=== PATIENT | female | born 1930 | race Caucasian/White ===

== ENCOUNTER 2016-10-10 19:29 | Emergency (ER) | payer OTHER, MEDICAID ==
[2016-10-10] MEDS ORDERED: DUONEB 0.5 MG/3 MG NEB ONE (19:40)
--- NOTE | 2016-10-10 19:41 | DR.GENAD ---
HPI - PCP Primary Care Physician: [id number] - Complaint/Symptoms Chief Complaint Doctors Comments: Patient sent from jail with loud gurgling respirations. Sats 88% on 2 L nasal cannula. Patient given duoneb, suctioned and ventimask. - Nurses notes reviewed Nurses Notes Review: Yes - Source History Provided: Prison - Mode of Arrival Mode of Arrival: Stretcher - Timing Came on: Suddenly - Duration Duration: Constant Duration: Hours - Location Location: [facility] - Severity Severity: Moderate - Modifying Factors Improves:: oxygen - Other History Other History: DNR PMH - PMH Past Medical History: COPD, GERD, Hypertension Past Surgical History: Yes Surgical History: Unknown - Social History Do you use any recreational Drugs:: No ROS - Review of Systems Constitutional: No Symptoms Reported Eyes: No Symptoms Reported ENTM: No Symptoms Reported Respiratoy: Short of Breath, Wheezing Cardiovascular: No Symptoms Reported Gastrointestinal/Abdominal: No Symptoms Reported Genitourinary: No Symptoms Reported Neurological: Depressed Musculoskeletal: No Symptoms Reported Integumentary: No Symptoms Reported Hematologic/Lymphatic: No Symptoms Reported Endocrine: No Symptoms Reported Psychiatric: No Symptoms Reported All Other Systems: Reviewed and Negative PE - Vital Signs Vitals: Pulse Rate 117 Blood Pressure [Left Arm] 118/48 Blood Pressure [Right Arm] 107/62 Blood Pressure 111/71 O2 Sat by Pulse Oximetry 100 - General Limitations: No Limitations General Appearance: Lethargic, In Distress (sounds like respiratory distress) - Head Head Exam: Normal Inspection - Eyes Eye exam: Normal Appearance, EOMI. negative: Scleral Icterus, Conjunctival Injection - ENT ENT Exam: Normal Oropharynx External Ear Exam: Normal External Inspection - Neck Neck Exam: Normal Inspection, Full ROM, Trachea Midline - Chest Chest Inspection: Normal Inspection - Respiratory Respiratory Exam: Accessory Muscle Use, Respiratory Distress. negative: Normal Lung Sounds Bilat Respiratory Exam: Bilateral Wheezing, Bilateral Rhonchi (rhonchi sounds like aspiration) - Abdominal Exam Abdominal Exam: Normal Inspection, Normal Bowel Sounds, Soft - Extremities Extremities Exam: Normal Inspection - Neurologic Neurological Exam: CN II-XII Intact - Psychiatric Psychiatric Exam: Flat Affect - Skin Skin Exam: Intact, Normal Color Course - Treatment Treatment: 2039: loud breath sounds and gurgling resolved. sats 98% on ventimask. Will continue ventimask till jerardo then try nasal canula at 3 liters. ROR - Labs Reviewed Result Diagrams: 10/10/16 19:49 10/10/16 19:49 Laboratory: WBC 6.1 X10^3/uL (3.6-10.0) 10/10/16 19:49 RBC 4.30 X10^6/uL (3.5-5.4) 10/10/16 19:49 Hgb 13.5 g/dL (12.0-16.0) 10/10/16 19:49 Hct 41.2 % (36.0-47.0) 10/10/16 19:49 MCV 95.8 fL (80.0-100.0) 10/10/16 19:49 MCH 31.4 pg (27.0-34.0) 10/10/16 19:49 MCHC 32.8 g/dL (33.0-35.0) L 10/10/16 19:49 RDW 13.8 % (11.6-16.5) 10/10/16 19:49 Plt Count 219 X10^3/uL (150.0-450.0) 10/10/16 19:49 MPV 8.1 fL (7.4-11.0) 10/10/16 19:49 Neut % 49.8 % (42.0-75.0) 10/10/16 19:49 Lymph % 34.7 % (21.0-51.0) 10/10/16 19:49 [place] % 11.1 % (0.0-13.0) 10/10/16 19:49 Eos % 4.1 % (0.9-2.9) H 10/10/16 19:49 Baso % 0.3 % (0.2-1.0) 10/10/16 19:49 Neut # 3.1 x10^3/uL (2.2-4.8) 10/10/16 19:49 Lymph # 2.1 X10^3/uL (1.3-2.9) 10/10/16 19:49 [place] # 0.7 x10^3/uL (0.3-0.8) 10/10/16 19:49 Eos # 0.2 x10^3/uL (0.0-0.2) 10/10/16 19:49 Baso # 0.0 X10^3/uL (0.0-0.1) 10/10/16 19:49 Absolute Nucleated RBC 0.0 /100WBC 10/10/16 19:49 Sodium 145 mmol/L (136-145) 10/10/16 19:49 Corrected Sodium TNP 10/10/16 19:49 Potassium 4.6 mmol/L (3.5-5.1) 10/10/16 19:49 Chloride 108 mmol/L (98-107) H 10/10/16 19:49 Carbon Dioxide 27.2 mmol/L (21-32) 10/10/16 19:49 BUN 21 mg/dL (7-18) H 10/10/16 19:49 Creatinine 0.92 mg/dL (0.55-1.02) 10/10/16 19:49 Est GFR (MDRD) Af Amer > 60 (>60) 10/10/16 19:49 Est GFR (MDRD) Non-Af > 60 (>60) 10/10/16 19:49 Glucose 106 mg/dL (65-99) H 10/10/16 19:49 Calcium 8.7 mg/dL (8.5-10.1) 10/10/16 19:49 Corrected Calcium TNP 10/10/16 19:49 Total Bilirubin 0.20 mg/dL (0.2-1.0) 10/10/16 19:49 AST 16 Units/L (15-37) 10/10/16 19:49 ALT 21 Units/L (12-78) 10/10/16 19:49 Alkaline Phosphatase 64 Units/L (46-116) 10/10/16 19:49 Creatine Kinase 56 Units/L (26-192) 10/10/16 19:49 CK-MB (CK-2) < 1.0 ng/mL (0-4.0) 10/10/16 19:49 CK/CKMB % Calc 1.8 % (<4) 10/10/16 19:49 Troponin I < 0.02 ng/mL (0-1.5) 10/10/16 19:49 Total Protein 7.6 g/dL (6.4-8.2) 10/10/16 19:49 Albumin 3.7 g/dL (3.4-5.0) 10/10/16 19:49 Globulin 3.9 g/dL (2.5-4.5) 10/10/16 19:49 Albumin/Globulin Ratio 0.9 Ratio (1.1-2.1) L 10/10/16 19:49 - XRAY XRAY Interpreted by: Radiologist XRAY Findings: chest: no acute changes - EKG Rate: 117 [place]: Normal Rhythm: ST Block: None Hypertrophy: None ST: Nonsp - Diagnosis Discharge Problem: COPD exacerbation - Discharge Plan Condition: Stable - Follow ups/Referrals Follow ups/Referrals: Marcial Nichols [Primary Care Provider] - 3 days - Instructions
[2016-10-10 20:04] LABS: BASOPHILS % (AUTO) 0.3 % (0.2-1.0); EOSINOPHILS # (AUTO) 0.2 x10^3/uL (0.0-0.2); EOSINOPHILS % (AUTO) 4.1 % (0.9-2.9); HEMATOCRIT 41.2 % (36.0-47.0); HEMOGLOBIN 13.5 g/dL (12.0-16.0); LYMPHOCYTES # (AUTO) 2.1 X10^3/uL (1.3-2.9); LYMPHOCYTES % (AUTO) 34.7 % (21.0-51.0); MEAN CORPUSCULAR HEMOGLOBIN 31.4 pg (27.0-34.0); MEAN CORPUSCULAR HGB CONC 32.8 g/dL (33.0-35.0); MEAN CORPUSCULAR VOLUME 95.8 fL (80.0-100.0); MEAN PLATELET VOLUME 8.1 fL (7.4-11.0); MONOCYTES # (AUTO) 0.7 x10^3/uL (0.3-0.8); MONOCYTES % (AUTO) 11.1 % (0.0-13.0); NEUTROPHILS # (AUTO) 3.1 x10^3/uL (2.2-4.8); NEUTROPHILS % (AUTO) 49.8 % (42.0-75.0); PLATELET COUNT 219 X10^3/uL (150.0-450.0); RED CELL DISTRIBUTION WIDTH 13.8 % (11.6-16.5); WHITE BLOOD COUNT 6.1 X10^3/uL (3.6-10.0)
[2016-10-10 20:18] LABS: BLOOD UREA NITROGEN 21 mg/dL (7-18); CALCIUM 8.7 mg/dL (8.5-10.1); CARBON DIOXIDE 27.2 mmol/L (21-32); CHLORIDE 108 mmol/L (98-107); CREATININE 0.92 mg/dL (0.55-1.02); GLUCOSE 106 mg/dL (65-99); SODIUM 145 mmol/L (136-145); TROPONIN I < 0.02 ng/mL (0-1.5); eGFR BLACK RACES > 60 (>60); eGFR NON BLACK RACES > 60 (>60)
[2016-10-10 20:19] VITALS: BMI 26.7
[2016-10-10 20:23] LABS: ALANINE AMINOTRANSFERASE 21 Units/L (12-78); ALBUMIN 3.7 g/dL (3.4-5.0); ALKALINE PHOSPHATASE 64 Units/L (46-116); ASPARTATE AMINO TRANSFERASE 16 Units/L (15-37); CKMB % 1.8 % (<4); CREATINE KINASE 56 Units/L (26-192); CREATINE KINASE MB < 1.0 ng/mL (0-4.0); TOTAL PROTEIN 7.6 g/dL (6.4-8.2)
--- NOTE | 2016-10-10 20:23 | RAD ---
HISTORY: 85-year-old female with shortness of breath Study: Single frontal view of the chest. Comparison: Chest radiograph September 15, 2016. Findings: The trachea is midline. The cardiac silhouette is stably enlarged. Chronic prominent perihilar sonia g markings with prominent interstitium without focal consolidation, large effusion or pneumothorax. Low lung volumes with bibasilar atelectasis. 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 The bony thorax is unremarkable. IMPRESSION: 1. Stable cardiomegaly and chronic changes without acute cardiopulmonary process. Reported By:
[2016-10-10 21:03] VITALS: BP 153/78
== END 2016-10-10 21:03 | disposition home or self-care (01) ==
LOC: ER 19:36
DX: J44.1 Chronic obstructive pulmonary disease with (acute) exacerbation (principal); I51.7 Cardiomegaly
CPT/HCPCS: 36415; 71010; 80053; 82550; 82553; 84484; 85025; 93005; 94640; 96365; 99283; A4216; A4222

== ENCOUNTER → 2017-02-28 | Outpatient (CLI) | payer OTHER, MEDICAID ==
--- NOTE | 2017-02-28 13:27 | RAD ---
HISTORY: Cough Study: Single-view chest Comparison: October 10, 2016 Findings: The trachea is midline. Heart size is upper normal with aortic uncoiling. Stable increased interstiti al markings are present bilaterally, likely representing COPD and interstitial fibrotic change. No co nsolidation, CHF or pneumothorax is seen. There is evidence of rotator cuff tendon insufficiency on t he right side. No acute osseous abnormalities are seen. IMPRESSION: Changes likely representing COPD and interstitial fibrotic disease. An acute process is not identifie d. Reported By:
== END ==
LOC: RAD 11:45
PROVIDERS: ATTEND Internal Medicine
DX: R05 Cough (principal)
CPT/HCPCS: 71010

== ENCOUNTER 2017-03-02 16:48 | Inpatient (IN) | payer OTHER, MEDICAID ==
[2017-03-02] MEDS ORDERED: TUSSIONEX PENNKINETIC SUSP PO PRN (19:31)
[2017-03-02] MEDS ORDERED: NS 1000 ML 1,000 ML ONE (19:37)
[2017-03-02 20:13] LABS: BASOPHILS # (AUTO) 0.1 X10^3/uL (0.0-0.1); BASOPHILS % (AUTO) 0.9 % (0.2-1.0); EOSINOPHILS # (AUTO) 0.5 x10^3/uL (0.0-0.2); EOSINOPHILS % (AUTO) 5.7 % (0.9-2.9); HEMATOCRIT 37.4 % (36.0-47.0); HEMOGLOBIN 12.6 g/dL (12.0-16.0); LYMPHOCYTES # (AUTO) 1.3 X10^3/uL (1.3-2.9); LYMPHOCYTES % (AUTO) 15.2 % (21.0-51.0); MEAN CORPUSCULAR HEMOGLOBIN 32.2 pg (27.0-34.0); MEAN CORPUSCULAR HGB CONC 33.6 g/dL (33.0-35.0); MEAN CORPUSCULAR VOLUME 95.9 fL (80.0-100.0); MEAN PLATELET VOLUME 7.7 fL (7.4-11.0); MONOCYTES # (AUTO) 1.1 x10^3/uL (0.3-0.8); MONOCYTES % (AUTO) 12.2 % (0.0-13.0); NEUTROPHILS # (AUTO) 5.9 x10^3/uL (2.2-4.8); PLATELET COUNT 269 X10^3/uL (150.0-450.0); RED CELL DISTRIBUTION WIDTH 13.6 % (11.6-16.5); WHITE BLOOD COUNT 8.9 X10^3/uL (3.6-10.0)
[2017-03-02 20:29] LABS: ALANINE AMINOTRANSFERASE 43 Units/L (12-78); ALBUMIN 2.9 g/dL (3.4-5.0); ALKALINE PHOSPHATASE 83 Units/L (46-116); ASPARTATE AMINO TRANSFERASE 33 Units/L (15-37); BLOOD UREA NITROGEN 22 mg/dL (7-18); CALCIUM 9.1 mg/dL (8.5-10.1); CARBON DIOXIDE 26.9 mmol/L (21-32); CHLORIDE 107 mmol/L (98-107); CREATININE 0.85 mg/dL (0.55-1.02); SODIUM 141 mmol/L (136-145); TOTAL PROTEIN 7.8 g/dL (6.4-8.2); eGFR BLACK RACES > 60 (>60); eGFR NON BLACK RACES > 60 (>60)
[2017-03-02] MEDS ORDERED: SALINE 0.9% 3 ML NEB TX ONE (21:19)
[2017-03-02] MEDS: PULMICORT NEB TX 0.5 MG NEB SCH (21:22)
[2017-03-02] MEDS: DUONEB 0.5 MG/3 MG NEB SCH (21:22)
--- NOTE | 2017-03-02 22:02 | RAD ---
Portable chest Indication: Cough and congestion Comparison: February 28, 2017. Impression: There is stable cardiomegaly. Extensive chronic interstitial changes are again noted throughout both lungs without new opacity to suggest pneumonia. No pleural effusion or pneumothorax is seen. No new a bnormality. Reported By:
[2017-03-02] MEDS: FORTAZ or TAZICEF INJ 1 GM in NS 50 ML IV + SPIKE MINIBAG* 50 ML IV SCH ×3 (22:24→22:26)
[2017-03-02] MEDS: LEVAQUIN PREMIX IV 500 MG 500 MG/100 ML BAG IV SCH (22:24)
[2017-03-02] MEDS: SOLU-Medrol 40 MG VIAL IVP SCH ×2 (22:24→22:25)
[2017-03-02] MEDS: ROBITUSSIN DM PO SCH (22:25)
[2017-03-02] MEDS: NS 1/2 1000 ML IV 1,000 ML IV SCH (22:26)
[2017-03-03] MEDS: DUONEB 0.5 MG/3 MG NEB SCH ×6 (01:44→21:30)
[2017-03-03 03:03] VITALS: BMI 24.2
[2017-03-03] MEDS: FORTAZ or TAZICEF INJ 1 GM in NS 50 ML IV + SPIKE MINIBAG* 50 ML IV SCH ×3 (05:27→21:40)
[2017-03-03] MEDS: SOLU-Medrol 40 MG VIAL IVP SCH ×3 (05:27→21:44)
[2017-03-03 06:57] LABS: ALANINE AMINOTRANSFERASE 41 Units/L (12-78); ALBUMIN 2.8 g/dL (3.4-5.0); ALKALINE PHOSPHATASE 84 Units/L (46-116); ASPARTATE AMINO TRANSFERASE 29 Units/L (15-37); BLOOD UREA NITROGEN 21 mg/dL (7-18); CALCIUM 8.8 mg/dL (8.5-10.1); CARBON DIOXIDE 24.8 mmol/L (21-32); CHLORIDE 108 mmol/L (98-107); COR CA(FOR HYPOALB) 9.8 mg/dL (8.5-10.1); COR NA(FOR HYPERGLY) 143 mmol/L (136-145); CREATININE 0.86 mg/dL (0.55-1.02); SODIUM 142 mmol/L (136-145); TOTAL PROTEIN 7.6 g/dL (6.4-8.2); eGFR BLACK RACES > 60 (>60); eGFR NON BLACK RACES > 60 (>60)
[2017-03-03 07:11] LABS: BASOPHILS % (AUTO) 0.4 % (0.2-1.0); EOSINOPHILS % (AUTO) 0.2 % (0.9-2.9); HEMATOCRIT 36.8 % (36.0-47.0); HEMOGLOBIN 12.3 g/dL (12.0-16.0); LYMPHOCYTES # (AUTO) 0.4 X10^3/uL (1.3-2.9); LYMPHOCYTES % (AUTO) 5.2 % (21.0-51.0); MEAN CORPUSCULAR HEMOGLOBIN 32.3 pg (27.0-34.0); MEAN CORPUSCULAR HGB CONC 33.4 g/dL (33.0-35.0); MEAN CORPUSCULAR VOLUME 96.7 fL (80.0-100.0); MEAN PLATELET VOLUME 8.4 fL (7.4-11.0); MONOCYTES # (AUTO) 0.2 x10^3/uL (0.3-0.8); MONOCYTES % (AUTO) 2.7 % (0.0-13.0); NEUTROPHILS # (AUTO) 7.7 x10^3/uL (2.2-4.8); NEUTROPHILS % (AUTO) 91.5 % (42.0-75.0); PLATELET COUNT 252 X10^3/uL (150.0-450.0); RED CELL DISTRIBUTION WIDTH 13.5 % (11.6-16.5); WHITE BLOOD COUNT 8.4 X10^3/uL (3.6-10.0)
--- NOTE | 2017-03-03 07:26 | RAD ---
HISTORY: Shortness of breath Study: Chest AP portable Comparison: March 02, 2017 9:36 p.m. Findings: The patient is rotated slightly to the left. The heart is enlarged. No congestive heart failure is no jeanna. Interstitial lung changes are present bilaterally more prominent on the right than the left. The re is increased density in the retrocardiac area of the left lower lobe silhouetting out the left hem idiaphragm. This could be due to infiltrate, atelectasis, effusion or a combination. It is not change d when compared with the prior examination. IMPRESSION: Increased density retrocardiac area left lower lobe. Differential diagnosis as above Mild cardiomegaly without congestive heart failure Interstitial lung changes, stable Reported By:
[2017-03-03 08:00] LABS: BAND NEUTROPHILS % 15 % (0-10); PLATELET MORPHOLOGY COMMENT NORMAL (NORMAL)
[2017-03-03] MEDS: PULMICORT NEB TX 0.5 MG NEB SCH ×2 (08:50→21:30)
--- NOTE | 2017-03-03 09:24 | DR.H&P ---
H&P - History & Physical for Day of: H&P Date: 03/02/17 - Chief Complaint Chief Complaint: COUGH, SHORT OF BREATH - Allergies Allergies/Adverse Reactions: Allergies Allergy/AdvReac Type Severity Reaction Status Date / Time Penicillins Allergy Verified 03/02/17 20:54 Sulfa (Sulfonamide Allergy Verified 03/02/17 20:54 Antibiotics) [SULFA] - History of Present Illness History of Present Illness: IS A 86 YEAR OLD PATIENT OF OURS WHO WAS A DIRECT ADMISSION FROM [facility] / [facility]. UPON MAKING ROUNDS TODAY AT [facility], PATIENT WAS NOTED WITH PRODUCTIVE COUGH AND SHORTNESS OF BREATH. THICK, YELLOW SPUTUM NOTED AT BEDSIDE. LONG-TERM STAFF REPORTED THAT PATIENT'S SYMPTOMS STARTED SEVERAL DAYS AGO. STAFF REPORTED THAT PATIENT'S SYMPTOMS HAD BEEN PROGRESSIVELY GETTING WORSE DESPITE RECEIVING BREATHING TREATMENTS AND TUSSIONEX AT THE LONG-TERM. ON EXAMINATION, LUNGS WERE NOTED WITH SCATTERED WHEEZING AND RHONCHI BILATERALLY. ABDOMEN WAS SOFT, ROUND, AND NON-TENDER WITH NORMAL BOWEL SOUNDS NOTED IN ALL QUADRANTS. WE ADMITTED PATIENT FOR FURTHER TREATMENT AND EVALUATION. WE PLANNED TO OBTAIN A CBC, CMP, BLOOD CULTURES, SPUTUM CULTURE, AND CHEST XRAY ON ADMISSION. PATIENT WILL BE STARTED ON 1/2 NS AT 75ML,HR, FORTAZ 1GM IVQ8H, LEVAQUIN 500MG DAILY, SOLU-MEDROL 40MG IV Q8H, ROBITUSSIN 10ML QID, AND TUSSIONEX 5ML Q12H PRN. ON ADMISSION, VITAL SIGNS WERE 97.4-94-24-93%-153/78. LABS AND CHEST XRAY WERE OBTAINED. ABNORMAL LAB VALUES INCLUDE THE FOLLOWING: BUN 22, ALBUMIN 2.9. CHEST XRAY REPORTED STABLE CRDIOMEGALY. EXTENSIVE CHRONIC INTERSTITIAL CHANGES NOTED THROUGHOUT BOTH LUNGS WITHOUT NEW OPACITY TO SUGGEST PNEUONIA. NO PLEURAL EFFUSION OR PNEUMOTHORAX IS SEEN. NO NEW ABNORMALITY. WE PLAN TO FOLLOW UP WITH AM LABS AND CONTINUE TO MONITOR PATIENT. - Past Medical History Past Medical History: Arthritis, COPD, Dementia, GERD, Hypertension Additional Medical History: MARFANS SYNDROME, ESOPHAGEAL DISORDERS, DYSPHAGIA, BRONCHITIS, PNEUMONIA, UTI'S, MUSCLE WEAKNESS, OSTEOPOROSIS, BACK PAIN - Past Surgical History Surgical History: Unknown - Social History Does patient currently use any type of tobacco product: No Have you used tobacco products in the last 12 months: No Type of Tobacco Use: None Alcohol Use: None Drug Use: None - Medications Home Medications: Dextromethorphan HBr [Tussin Cough] 10 ml PO QID 03/03/17 [History Confirmed ] Docusate Sodium [Colace] 100 mg PO DAILY 03/03/17 [History Confirmed 03/03/17] Famotidine [Famotidine] 20 mg PO BID 03/03/17 [History Confirmed 03/03/17] Fluticasone/Salmeterol [Advair Hfa 115/21 mcg 120-dose] 2 puff PO BID 03/03/17 [ History Confirmed 03/03/17] Furosemide [Furosemide] 20 mg PO DAILY 03/03/17 [History Confirmed 03/03/17] Guaifenesin [Mucinex] 1 tab PO BID 03/03/17 [History Confirmed 03/03/17] Ipratropium/Albuterol Nebule [DUONEB 0.5 MG/3 MG NEBULE *] 1 applic NEB Q4H PRN 03/03/17 [History Confirmed 03/03/17] Magnesium Hydroxide [Milk of Magnesia] 30 ml PO DAILY 03/03/17 [History Confirmed 03/03/17] - Review of Systems Constitutional: See HPI, Fever, Weakness Eyes: No Symptoms Reported ENT: No Symptoms Reported Respiratory: See HPI, Cough, Shortness of Breath, Sputum, Wheezing Cardiovascular: No Symptoms Reported Gastrointestinal: No Symptoms Reported Genitourinary: No Symptoms Reported Musculoskeletal: No Symptoms Reported Skin: No Symptoms Reported Neurological: Weakness - Physical Exam Vital Signs: Temperature 97.9 F Pulse Rate [Bilateral Radial] 92 Pulse Rate 67 Respiratory Rate 18 Blood Pressure [Left Arm] 114/77 Blood Pressure [Right Arm] 107/62 Blood Pressure 153/78 O2 Sat by Pulse Oximetry 94 Oriented: Unable to test Eyes: Normal Ear: Normal Nose: Normal Throat: Normal Respiratory: Rhonchi Throughout, Wheezes Throughout Cardiovascular: Normal : Normal Auscultation: Bowel Sounds: Normal Palpation: Normal Tenderness: Normal Skin: Normal Musculoskeletal: Instability Psychiatric: Normal Mood Description: Calm Affect: Normal Speech Pattern: Clear, Unclear - Assessment/Plan (1) Acute bronchitis Qualifiers: Bronchitis organism: unspecified organism Qualified Code(s): J20.9 - Acute bronchitis, unspecified Status: Acute Plan: DUONEB Q4H, PULMICORT NEX [place] BID, FORTAZ 1GM IV Q8H, LEVAQUIN 500MG DAILY , SUPPLEMENTAL OXYGEN, ROBITUSSIN QID, TUSSIONEX 5ML Q12H PRN, CONTINUE TO MONITOR LABS AND CHEST XRAY (2) COPD exacerbation Status: Acute Plan: DUONEB Q4H, PULMICORT NEX [place] BID, SOLU-MEDROL 40MG IV Q8H, SUPPLEMENTAL OXYGEN, CONTINUE TO MONITOR LABS AND CHEST XRAY
[2017-03-03] MEDS: LEVAQUIN PREMIX IV 500 MG 500 MG/100 ML BAG IV SCH (09:43)
[2017-03-03] MEDS: ROBITUSSIN DM PO SCH ×4 (09:44→21:46)
[2017-03-03] MEDS ORDERED: NS 1/2 1000 ML IV 1,000 ML IV ONE (13:22)
[2017-03-03] MEDS: NS 1/2 1000 ML IV 1,000 ML IV SCH (13:25)
[2017-03-03] MEDS ORDERED: BUTT CREAM (COMPOUND) TOP PRN (18:10)
[2017-03-03] MEDS: MILK OF MAGNESIA PO SCH (18:56)
[2017-03-03] MEDS: PEPCID TAB 20 MG PO SCH ×2 (18:57→21:45)
[2017-03-03] MEDS: LASIX PO SCH (18:57)
[2017-03-03] MEDS: COLACE CAP 100 MG PO SCH (18:57)
[2017-03-03] MEDS ORDERED: [UNRECOGNIZED DRUG - OTHER] PO SCH (21:00)
[2017-03-03] MEDS ORDERED: SALMETEROL PO SCH (21:00)
[2017-03-03] MEDS ORDERED: FLUTICASONE PO SCH (21:00)
[2017-03-03] MEDS: SINGULAIR TAB 10 MG PO SCH (21:45)
[2017-03-04] MEDS: NS 1/2 1000 ML IV 1,000 ML IV SCH ×3 (01:17→17:56)
[2017-03-04 01:30] LABS: BILIRUBIN,URINE NEGATIVE (NEGATIVE); BLOOD/HEMOGLOBIN,URINE NEGATIVE (NEGATIVE); GLUCOSE, URINE NEGATIVE (NEGATIVE); KETONES,URINE 1+ (NEGATIVE); LEUKOCYTE ESTERASE ,URINE 1+ (NEGATIVE); NITRITES,URINE POSITIVE (NEGATIVE); PROTEIN,URINE 2+ (NEGATIVE); UROBILINOGEN,URINE NORMAL (NORMAL)
[2017-03-04 01:36] LABS: APPEARANCE,URINE SLIGHTLY HAZY (CLEAR); BACTERIA,URINE 2+ /HPF (NEGATIVE); COLOR,URINE YELLOW (YELLOW); RBC,URINE NONE SEEN /HPF (NEGATIVE); SQUAMOUS EPITHELIAL CELL,UR RARE /HPF (NEGATIVE)
[2017-03-04] MEDS: DUONEB 0.5 MG/3 MG NEB SCH ×6 (01:46→20:40)
[2017-03-04] MEDS ORDERED: NS 1/2 1000 ML IV 1,000 ML IV ONE ×2 (02:57→17:49)
[2017-03-04] MEDS: SOLU-Medrol 40 MG VIAL IVP SCH ×3 (05:26→22:24)
[2017-03-04] MEDS: FORTAZ or TAZICEF INJ 1 GM in NS 50 ML IV + SPIKE MINIBAG* 50 ML IV SCH ×3 (05:26→22:23)
[2017-03-04 05:33] LABS: BASOPHILS % (AUTO) 0.2 % (0.2-1.0); HEMATOCRIT 32.5 % (36.0-47.0); HEMOGLOBIN 10.9 g/dL (12.0-16.0); LYMPHOCYTES # (AUTO) 0.9 X10^3/uL (1.3-2.9); LYMPHOCYTES % (AUTO) 11.2 % (21.0-51.0); MEAN CORPUSCULAR HEMOGLOBIN 32.1 pg (27.0-34.0); MEAN CORPUSCULAR HGB CONC 33.7 g/dL (33.0-35.0); MEAN CORPUSCULAR VOLUME 95.2 fL (80.0-100.0); MEAN PLATELET VOLUME 8.2 fL (7.4-11.0); MONOCYTES # (AUTO) 0.5 x10^3/uL (0.3-0.8); MONOCYTES % (AUTO) 6.4 % (0.0-13.0); NEUTROPHILS # (AUTO) 6.3 x10^3/uL (2.2-4.8); NEUTROPHILS % (AUTO) 82.2 % (42.0-75.0); PLATELET COUNT 263 X10^3/uL (150.0-450.0); RED BLOOD COUNT 3.41 X10^6/uL (3.5-5.4); RED CELL DISTRIBUTION WIDTH 13.7 % (11.6-16.5); WHITE BLOOD COUNT 7.6 X10^3/uL (3.6-10.0)
[2017-03-04 06:37] LABS: BLOOD UREA NITROGEN 19 mg/dL (7-18); CALCIUM 8.8 mg/dL (8.5-10.1); CARBON DIOXIDE 23.7 mmol/L (21-32); CHLORIDE 105 mmol/L (98-107); COR NA(FOR HYPERGLY) 140 mmol/L (136-145); CREATININE 0.85 mg/dL (0.55-1.02); eGFR BLACK RACES > 60 (>60); eGFR NON BLACK RACES > 60 (>60)
[2017-03-04 06:53] LABS: SODIUM 139 mmol/L (136-145)
[2017-03-04] MEDS: PULMICORT NEB TX 0.5 MG NEB SCH ×2 (08:26→20:40)
--- NOTE | 2017-03-04 09:18 | PCM.PROG ---
Progress Note - Progress Note for Day of Date: 03/04/17 - Subjective Subjective: WAS ADMITTED FOR COUGH AND SHORTNESS OF BREATH. SHE WAS STARTED ON THE PNEUMONIA PROTOCOL. TODAY, SHE IS LYING IN BED WITH EYES OPEN ON MORNING ROUNDS. PATIENT IS CURRENTLY MOANING. PATIENT'S DAUGHTER IN LAW IS AT BEDSIDE. PATIENT CONTINUES WITH COUGH AND APPEARS TO BE SHORT OF BREATH. SHE IS NOTED WEARING NASAL CANNULA AND IS CURRENTLY RECEIVING A BREATHING TREATMENT. ON EXAMINATION, LUNGS ARE NOTED WITH WHEEZING AND RHONCHI BILATERALLY. ABDOMEN IS SOFT, ROUND, AND NON-TENDER. NORMAL BOWEL SOUNDS ARE NOTED IN ALL QUADRANTS. VITAL SIGNS THIS MORNING ARE 96.5-90-22-90%-115/86. A CBC, CMP, AND CHEST XRAY WERE OBTAINED. ABNORMAL LAB VALUES INCLUDE THE FOLLOWING: CHLORIDE 108, BUN 21, GLUCOSE 136. CHEST XRAY REPORTED INCREASED DENSITY RETROCARDIAC ARE LEFT LOWER LOBE. MILD CARDIOMEGALY WITHOUT CHF, INTERSTITIAL LUNG CHANGES STABLE. WE WILL CONTINUE WITH CURRENT PLAN OF CARE TODAY. WE PLAN TO FOLLOW UP WITH AM LABS AND CONTINUE TO MONITOR. - Past Medical Family Social History Past Med/Fam/Surg Hx: No changes since H&P Allergies: Allergies Penicillins Allergy (Verified 03/02/17 20:54) Sulfa (Sulfonamide Antibiotics) [SULFA] Allergy (Verified 03/02/17 20:54) - Review of Systems ROS: No change since H&P - Vital Signs and I&O's Vital Signs: Temperature 97.6 F Pulse Rate [Bilateral Radial] 89 Pulse Rate 84 Respiratory Rate 24 Blood Pressure [Left Arm] 129/58 Blood Pressure [Right Arm] 168/67 Blood Pressure 153/78 O2 Sat by Pulse Oximetry 95 Intake and Output: Intake & Output 03/01/17 03/02/17 03/03/17 03/04/17 11:59 11:59 11:59 11:59 Intake Total 1040 2174 Output Total 430 Balance 1040 1744 - Physical Exam Oriented: Unable to test Eyes: Normal Ear: Normal Nose: Normal Throat: Normal Respiratory: Generalized, Wheezes, Rhonchi Cardiovascular: Normal : Normal Auscultation: Bowel Sounds: Normal Palpation: Normal Tenderness: Normal Skin: Normal Musculoskeletal: Instability Psychiatric: Normal Mood Description: Calm Affect: Normal Speech Pattern: Clear, Unclear - Laboratory and Diagnostics Result Diagrams: 03/04/17 04:25 03/04/17 04:25 Labs: 03/02/17 21:26 Sputum - Expectorated Sputum Sputum Culture - Preliminary 03/02/17 21:26 Sputum - Expectorated Sputum - Final Laboratory WBC 7.6 X10^3/uL (3.6-10.0) 03/04/17 04:25 RBC 3.41 X10^6/uL (3.5-5.4) L 03/04/17 04:25 Hgb 10.9 g/dL (12.0-16.0) L 03/04/17 04:25 Hct 32.5 % (36.0-47.0) L 03/04/17 04:25 MCV 95.2 fL (80.0-100.0) 03/04/17 04:25 MCH 32.1 pg (27.0-34.0) 03/04/17 04:25 MCHC 33.7 g/dL (33.0-35.0) 03/04/17 04:25 RDW 13.7 % (11.6-16.5) 03/04/17 04:25 Plt Count 263 X10^3/uL (150.0-450.0) 03/04/17 04:25 Plt Count Comment Adequate (ADEQUATE) 03/03/17 04:10 MPV 8.2 fL (7.4-11.0) 03/04/17 04:25 Neut % 82.2 % (42.0-75.0) H 03/04/17 04:25 Lymph % 11.2 % (21.0-51.0) L 03/04/17 04:25 [place] % 6.4 % (0.0-13.0) 03/04/17 04:25 Eos % 0.0 % (0.9-2.9) L 03/04/17 04:25 Baso % 0.2 % (0.2-1.0) 03/04/17 04:25 Neut # 6.3 x10^3/uL (2.2-4.8) H 03/04/17 04:25 Lymph # 0.9 X10^3/uL (1.3-2.9) L 03/04/17 04:25 [place] # 0.5 x10^3/uL (0.3-0.8) 03/04/17 04:25 Eos # 0.0 x10^3/uL (0.0-0.2) 03/04/17 04:25 Baso # 0.0 X10^3/uL (0.0-0.1) 03/04/17 04:25 Absolute Nucleated RBC 0.0 /100WBC 03/04/17 04:25 Total Counted 100 03/03/17 04:10 Neutrophils % (Manual) 77 % (39-76) H 03/03/17 04:10 Band Neutrophils % 15 % (0-10) H 03/03/17 04:10 Lymphocytes % (Manual) 6 % (13-43) L 03/03/17 04:10 Monocytes % (Manual) 2 % (4-9) L 03/03/17 04:10 Plt Morphology Comment Normal (NORMAL) 03/03/17 04:10 RBC Morphology Normal (NORMAL) 03/03/17 04:10 Sodium 139 mmol/L (136-145) 03/04/17 04:25 Corrected Sodium 140 mmol/L (136-145) 03/04/17 04:25 Potassium 3.6 mmol/L (3.5-5.1) 03/04/17 04:25 Chloride 105 mmol/L (98-107) 03/04/17 04:25 Carbon Dioxide 23.7 mmol/L (21-32) 03/04/17 04:25 BUN 19 mg/dL (7-18) H 03/04/17 04:25 Creatinine 0.85 mg/dL (0.55-1.02) 03/04/17 04:25 Est GFR (MDRD) Af Amer > 60 (>60) 03/04/17 04:25 Est GFR (MDRD) Non-Af > 60 (>60) 03/04/17 04:25 Glucose 141 mg/dL (65-99) H 03/04/17 04:25 Calcium 8.8 mg/dL (8.5-10.1) 03/04/17 04:25 Corrected Calcium 9.8 mg/dL (8.5-10.1) 03/03/17 04:10 Total Bilirubin 0.20 mg/dL (0.2-1.0) 03/03/17 04:10 AST 29 Units/L (15-37) 03/03/17 04:10 ALT 41 Units/L (12-78) 03/03/17 04:10 Alkaline Phosphatase 84 Units/L (46-116) 03/03/17 04:10 Total Protein 7.6 g/dL (6.4-8.2) 03/03/17 04:10 Albumin 2.8 g/dL (3.4-5.0) L 03/03/17 04:10 Globulin 4.8 g/dL (2.5-4.5) H 03/03/17 04:10 Albumin/Globulin Ratio 0.6 Ratio (1.1-2.1) L 03/03/17 04:10 Specimen Type Catherized urine 03/04/17 01:00 Urine Color Yellow (YELLOW) 03/04/17 01:00 Urine Appearance Slightly hazy (CLEAR) 03/04/17 01:00 Urine pH 5.0 (5.0 - 8.0) 03/04/17 01:00 Ur Specific [place] 1.020 (1.000-1.030) 03/04/17 01:00 Urine Protein 2+ (NEGATIVE) 03/04/17 01:00 Urine Glucose (UA) Negative (NEGATIVE) 03/04/17 01:00 Urine Ketones 1+ (NEGATIVE) 03/04/17 01:00 Urine Occult Blood Negative (NEGATIVE) 03/04/17 01:00 Urine Nitrite Positive (NEGATIVE) 03/04/17 01:00 Urine Bilirubin Negative (NEGATIVE) 03/04/17 01:00 Urine Urobilinogen Normal (NORMAL) 03/04/17 01:00 Ur Leukocyte Esterase 1+ (NEGATIVE) 03/04/17 01:00 Urine RBC None seen /HPF (NEGATIVE) 03/04/17 01:00 Urine WBC 6-8 /HPF (NEGATIVE) 03/04/17 01:00 Ur Squamous Epith Cells Rare /HPF (NEGATIVE) 03/04/17 01:00 Urine Bacteria 2+ /HPF (NEGATIVE) 03/04/17 01:00 Ur Culture Indicated? Yes/culture set up 03/04/17 01:00 - Plan (1) Acute bronchitis Status: Acute Qualifiers: Bronchitis organism: unspecified organism Qualified Code(s): J20.9 - Acute bronchitis, unspecified Plan: DUONEB Q4H, PULMICORT NEX [place] BID, FORTAZ 1GM IV Q8H, LEVAQUIN 500MG DAILY , SUPPLEMENTAL OXYGEN, ROBITUSSIN QID, TUSSIONEX 5ML Q12H PRN, CONTINUE TO MONITOR LABS AND CHEST XRAY (2) COPD exacerbation Status: Acute Plan: DUONEB Q4H, PULMICORT NEX [place] BID, SOLU-MEDROL 40MG IV Q8H, SUPPLEMENTAL OXYGEN, CONTINUE TO MONITOR LABS AND CHEST XRAY
[2017-03-04] MEDS: LEVAQUIN PREMIX IV 500 MG 500 MG/100 ML BAG IV SCH (09:22)
[2017-03-04] MEDS: LASIX PO SCH (09:23)
[2017-03-04] MEDS: COLACE CAP 100 MG PO SCH (09:23)
[2017-03-04] MEDS: PEPCID TAB 20 MG PO SCH ×2 (09:23→22:20)
[2017-03-04] MEDS: MILK OF MAGNESIA PO SCH (09:23)
[2017-03-04] MEDS: ROBITUSSIN DM PO SCH ×4 (09:23→22:21)
[2017-03-04] MEDS: PROVENTIL NEB TX 0.083% 2.5MG/ 3ML NEB SCH ×3 (12:30→20:40)
[2017-03-04 14:06] LABS: ALANINE AMINOTRANSFERASE 42 Units/L (12-78); ALBUMIN 2.5 g/dL (3.4-5.0); ALKALINE PHOSPHATASE 69 Units/L (46-116); ASPARTATE AMINO TRANSFERASE 41 Units/L (15-37); TOTAL PROTEIN 6.8 g/dL (6.4-8.2)
--- NOTE | 2017-03-04 20:56 | PCM.PROG ---
Progress Note - Progress Note for Day of Date: 03/04/17 - Subjective Subjective: IS A RESIDENT OF [facility]. SHE WAS ADMITTED FOR COUGH AND SHORTNESS OF BREATH. SHE WAS STARTED ON THE PNEUMONIA PROTOCOL. TODAY, SHE IS LYING IN BED WITH EYES CLOSED ON MORNING ROUNDS. SHE AWAKENS AND MOANS TO VERBAL STIMULATION. PATIENT'S DAUGHTER IN LAW IS AT BEDSIDE. PATIENT CONTINUES WITH COUGH. DAUGHTER IN LAW REPORTS THAT PATIENT APPEARS TO BE HAVING DIFFICULTY BREATHING. SHE IS NOTED WEARING NASAL CANNULA AND IS RECEIVING A BREATHING TREATMENT ON ROUNDS. ON EXAMINATION, LUNGS CONTINUE WITH WHEEZING AND RHONCHI BILATERALLY. ABDOMEN IS SOFT, ROUND, AND NON-TENDER. NORMAL BOWEL SOUNDS ARE NOTED IN ALL QUADRANTS. VITAL SIGNS THIS MORNING ARE 97.9-92-18-94%- 114/77. A CBC AND CMP WERE OBTAINED THIS MORNING. ABNORMAL LAB VALUES INCLUDE THE FOLLOWING: RBC 10.9, HCT 32.5, CHLORIDE 108, BUN 19, GLUCOSE 141, AST 41, ALBUMIN 2.5. A CHEST XRAY ARE PENDING RESULTS. STAFF REPORTS THAT PATIENT WAS HAVING URINARY RETENTION YESTERDAY AND LAST NIGHT. A YUNG CATHETER WAS INSERTED WITH 500ML URINE NOTED ON RETURN. A URINALYSIS WAS OBTAINED AND REPORTED WBC 6-8, BACTERIA 2+, PROTEIN 2+, NITRITE POSITVE. TODAY, WE WILL CONTINUE WITH CURRENT PLAN OF CARE. WE PLAN TO FOLLOW UP WITH AM LABS AND CONTINUE TO MONITOR. - Past Medical Family Social History Past Med/Fam/Surg Hx: No changes since H&P Allergies: Allergies Penicillins Allergy (Verified 03/02/17 20:54) Sulfa (Sulfonamide Antibiotics) [SULFA] Allergy (Verified 03/02/17 20:54) - Review of Systems ROS: No change since H&P - Vital Signs and I&O's Vital Signs: Temperature 98.4 F Pulse Rate [Bilateral Radial] 96 Pulse Rate 72 Respiratory Rate 28 Blood Pressure [Left Arm] 129/58 Blood Pressure [Right Arm] 141/56 Blood Pressure 153/78 O2 Sat by Pulse Oximetry 94 Intake and Output: Intake & Output 03/02/17 03/03/17 03/04/17 03/05/17 11:59 11:59 11:59 11:59 Intake Total 1040 2174 480 Output Total 430 200 Balance 1040 1744 280 - Physical Exam Oriented: Unable to test Eyes: Normal Ear: Normal Nose: Normal Throat: Normal Respiratory: Generalized, Wheezes, Rhonchi Cardiovascular: Normal : Normal Auscultation: Bowel Sounds: Normal Palpation: Normal Tenderness: Normal Skin: Normal Musculoskeletal: Instability Psychiatric: Normal Mood Description: Calm Affect: Normal Speech Pattern: Clear, Unclear - Laboratory and Diagnostics Result Diagrams: 03/04/17 04:25 03/04/17 04:25 Labs: 03/02/17 19:55 Blood Blood Culture - Preliminary 03/02/17 19:50 Blood Blood Culture - Preliminary 03/02/17 21:26 Sputum - Expectorated Sputum Sputum Culture - Final 03/02/17 21:26 Sputum - Expectorated Sputum - Final Laboratory WBC 7.6 X10^3/uL (3.6-10.0) 03/04/17 04:25 RBC 3.41 X10^6/uL (3.5-5.4) L 03/04/17 04:25 Hgb 10.9 g/dL (12.0-16.0) L 03/04/17 04:25 Hct 32.5 % (36.0-47.0) L 03/04/17 04:25 MCV 95.2 fL (80.0-100.0) 03/04/17 04:25 MCH 32.1 pg (27.0-34.0) 03/04/17 04:25 MCHC 33.7 g/dL (33.0-35.0) 03/04/17 04:25 RDW 13.7 % (11.6-16.5) 03/04/17 04:25 Plt Count 263 X10^3/uL (150.0-450.0) 03/04/17 04:25 Plt Count Comment Adequate (ADEQUATE) 03/03/17 04:10 MPV 8.2 fL (7.4-11.0) 03/04/17 04:25 Neut % 82.2 % (42.0-75.0) H 03/04/17 04:25 Lymph % 11.2 % (21.0-51.0) L 03/04/17 04:25 [place] % 6.4 % (0.0-13.0) 03/04/17 04:25 Eos % 0.0 % (0.9-2.9) L 03/04/17 04:25 Baso % 0.2 % (0.2-1.0) 03/04/17 04:25 Neut # 6.3 x10^3/uL (2.2-4.8) H 03/04/17 04:25 Lymph # 0.9 X10^3/uL (1.3-2.9) L 03/04/17 04:25 [place] # 0.5 x10^3/uL (0.3-0.8) 03/04/17 04:25 Eos # 0.0 x10^3/uL (0.0-0.2) 03/04/17 04:25 Baso # 0.0 X10^3/uL (0.0-0.1) 03/04/17 04:25 Absolute Nucleated RBC 0.0 /100WBC 03/04/17 04:25 Total Counted 100 03/03/17 04:10 Neutrophils % (Manual) 77 % (39-76) H 03/03/17 04:10 Band Neutrophils % 15 % (0-10) H 03/03/17 04:10 Lymphocytes % (Manual) 6 % (13-43) L 03/03/17 04:10 Monocytes % (Manual) 2 % (4-9) L 03/03/17 04:10 Plt Morphology Comment Normal (NORMAL) 03/03/17 04:10 RBC Morphology Normal (NORMAL) 03/03/17 04:10 Sodium 139 mmol/L (136-145) 03/04/17 04:25 Corrected Sodium 140 mmol/L (136-145) 03/04/17 04:25 Potassium 3.6 mmol/L (3.5-5.1) 03/04/17 04:25 Chloride 105 mmol/L (98-107) 03/04/17 04:25 Carbon Dioxide 23.7 mmol/L (21-32) 03/04/17 04:25 BUN 19 mg/dL (7-18) H 03/04/17 04:25 Creatinine 0.85 mg/dL (0.55-1.02) 03/04/17 04:25 Est GFR (MDRD) Af Amer > 60 (>60) 03/04/17 04:25 Est GFR (MDRD) Non-Af > 60 (>60) 03/04/17 04:25 Glucose 141 mg/dL (65-99) H 03/04/17 04:25 Calcium 8.8 mg/dL (8.5-10.1) 03/04/17 04:25 Corrected Calcium 10.0 mg/dL (8.5-10.1) 03/04/17 04:25 Total Bilirubin 0.10 mg/dL (0.2-1.0) L 03/04/17 04:25 AST 41 Units/L (15-37) H 03/04/17 04:25 ALT 42 Units/L (12-78) 03/04/17 04:25 Alkaline Phosphatase 69 Units/L (46-116) 03/04/17 04:25 Total Protein 6.8 g/dL (6.4-8.2) 03/04/17 04:25 Albumin 2.5 g/dL (3.4-5.0) L 03/04/17 04:25 Globulin 4.3 g/dL (2.5-4.5) 03/04/17 04:25 Albumin/Globulin Ratio 0.6 Ratio (1.1-2.1) L 03/04/17 04:25 Specimen Type Catherized urine 03/04/17 01:00 Urine Color Yellow (YELLOW) 03/04/17 01:00 Urine Appearance Slightly hazy (CLEAR) 03/04/17 01:00 Urine pH 5.0 (5.0 - 8.0) 03/04/17 01:00 Ur Specific [place] 1.020 (1.000-1.030) 03/04/17 01:00 Urine Protein 2+ (NEGATIVE) 03/04/17 01:00 Urine Glucose (UA) Negative (NEGATIVE) 03/04/17 01:00 Urine Ketones 1+ (NEGATIVE) 03/04/17 01:00 Urine Occult Blood Negative (NEGATIVE) 03/04/17 01:00 Urine Nitrite Positive (NEGATIVE) 03/04/17 01:00 Urine Bilirubin Negative (NEGATIVE) 03/04/17 01:00 Urine Urobilinogen Normal (NORMAL) 03/04/17 01:00 Ur Leukocyte Esterase 1+ (NEGATIVE) 03/04/17 01:00 Urine RBC None seen /HPF (NEGATIVE) 03/04/17 01:00 Urine WBC 6-8 /HPF (NEGATIVE) 03/04/17 01:00 Ur Squamous Epith Cells Rare /HPF (NEGATIVE) 10/01/17 01:00 Urine Bacteria 2+ /HPF (NEGATIVE) 03/04/17 01:00 Ur Culture Indicated? Yes/culture set up 03/04/17 01:00 - Plan (1) Acute bronchitis Status: Acute Qualifiers: Bronchitis organism: unspecified organism Qualified Code(s): J20.9 - Acute bronchitis, unspecified Plan: DUONEB Q4H, PULMICORT NEX TX BID, FORTAZ 1GM IV Q8H, LEVAQUIN 500MG DAILY , SUPPLEMENTAL OXYGEN, ROBITUSSIN QID, TUSSIONEX 5ML Q12H PRN, CONTINUE TO MONITOR LABS AND CHEST XRAY (2) COPD exacerbation Status: Acute Plan: DUONEB Q4H, PULMICORT NEX [place] BID, SOLU-MEDROL 40MG IV Q8H, SUPPLEMENTAL OXYGEN, CONTINUE TO MONITOR LABS AND CHEST XRAY (3) UTI (urinary tract infection) Status: Acute Qualifiers: Urinary tract infection type: acute cystitis Hematuria presence: without hematuria Qualified Code(s): N30.00 - Acute cystitis without hematuria Plan: LEVAQUIN 500MG IV DAILY, CONTINUE TO MONITOR (4) GERD (gastroesophageal reflux disease) Status: Acute Qualifiers: Esophagitis presence: esophagitis presence not specified Qualified Code(s) : K21.9 - Gastro-esophageal reflux disease without esophagitis Plan: CONTINUE PEPCID 20MG PO BID, CONTINUE TO MONITOR
[2017-03-04] MEDS: SINGULAIR TAB 10 MG PO SCH (22:21)
[2017-03-05] MEDS: DUONEB 0.5 MG/3 MG NEB SCH ×7 (01:05→20:20)
[2017-03-05 05:12] LABS: BASOPHILS % (AUTO) 0.3 % (0.2-1.0); EOSINOPHILS % (AUTO) 0.2 % (0.9-2.9); HEMATOCRIT 33.8 % (36.0-47.0); HEMOGLOBIN 11.4 g/dL (12.0-16.0); LYMPHOCYTES # (AUTO) 0.9 X10^3/uL (1.3-2.9); LYMPHOCYTES % (AUTO) 9.2 % (21.0-51.0); MEAN CORPUSCULAR HEMOGLOBIN 32.4 pg (27.0-34.0); MEAN CORPUSCULAR HGB CONC 33.7 g/dL (33.0-35.0); MEAN CORPUSCULAR VOLUME 96.2 fL (80.0-100.0); MEAN PLATELET VOLUME 8.1 fL (7.4-11.0); MONOCYTES # (AUTO) 0.7 x10^3/uL (0.3-0.8); MONOCYTES % (AUTO) 7.1 % (0.0-13.0); NEUTROPHILS # (AUTO) 8.2 x10^3/uL (2.2-4.8); NEUTROPHILS % (AUTO) 83.2 % (42.0-75.0); PLATELET COUNT 298 X10^3/uL (150.0-450.0); RED BLOOD COUNT 3.51 X10^6/uL (3.5-5.4); RED CELL DISTRIBUTION WIDTH 13.8 % (11.6-16.5); WHITE BLOOD COUNT 9.9 X10^3/uL (3.6-10.0)
[2017-03-05 05:23] LABS: ALANINE AMINOTRANSFERASE 38 Units/L (12-78); ALBUMIN 2.4 g/dL (3.4-5.0); ALKALINE PHOSPHATASE 58 Units/L (46-116); ASPARTATE AMINO TRANSFERASE 32 Units/L (15-37); BLOOD UREA NITROGEN 18 mg/dL (7-18); CALCIUM 8.8 mg/dL (8.5-10.1); CARBON DIOXIDE 25.7 mmol/L (21-32); CHLORIDE 107 mmol/L (98-107); COR CA(FOR HYPOALB) 10.1 mg/dL (8.5-10.1); COR NA(FOR HYPERGLY) 140 mmol/L (136-145); CREATININE 0.96 mg/dL (0.55-1.02); SODIUM 140 mmol/L (136-145); TOTAL PROTEIN 6.4 g/dL (6.4-8.2); eGFR BLACK RACES > 60 (>60); eGFR NON BLACK RACES 58 (>60)
[2017-03-05 05:41] LABS: BAND NEUTROPHILS % 13 % (0-10)
[2017-03-05 05:42] LABS: PLATELET MORPHOLOGY COMMENT NORMAL (NORMAL)
[2017-03-05] MEDS: SOLU-Medrol 40 MG VIAL IVP SCH ×2 (05:44→13:58)
[2017-03-05] MEDS: FORTAZ or TAZICEF INJ 1 GM in NS 50 ML IV + SPIKE MINIBAG* 50 ML IV SCH ×3 (05:44→21:21)
[2017-03-05] MEDS: LASIX PO SCH (08:28)
[2017-03-05] MEDS: PEPCID TAB 20 MG PO SCH ×2 (08:28→21:22)
[2017-03-05] MEDS: MILK OF MAGNESIA PO SCH (08:28)
[2017-03-05] MEDS: COLACE CAP 100 MG PO SCH (08:29)
[2017-03-05] MEDS: LEVAQUIN PREMIX IV 500 MG 500 MG/100 ML BAG IV SCH (08:29)
[2017-03-05] MEDS: NS 1/2 1000 ML IV 1,000 ML IV SCH (08:30)
[2017-03-05] MEDS: ROBITUSSIN DM PO SCH ×3 (08:30→17:30)
[2017-03-05] MEDS: PULMICORT NEB TX 0.5 MG NEB SCH ×2 (09:30→20:20)
[2017-03-05] MEDS: PROVENTIL NEB TX 0.083% 2.5MG/ 3ML NEB SCH (09:30)
[2017-03-05] MEDS ORDERED: NS 1/2 1000 ML IV 1,000 ML IV ONE (09:54)
--- NOTE | 2017-03-05 10:57 | PCM.PROG ---
Progress Note - Progress Note for Day of Date: 03/05/17 - Subjective Subjective: IS A RESIDENT OF [facility]. SHE WAS ADMITTED FOR COUGH AND SHORTNESS OF BREATH. TODAY, SHE IS LYING IN BED WITH EYES CLOSED ON MORNING ROUNDS. SHE AWAKENS TO VERBAL STIMULATION. PATIENT MOANS WHEN ASKED HOW SHE IS FEELING. PATIENT CONTINUES WITH COUGH. SHE IS NOTED WEARING NASAL CANNULA WITH OXYGEN AT 2L/MIN. A YUGN CATHETER IS NOTED AT BEDSIDE WITH CLEAR YELLOW URINE. ON EXAMINATION, LUNGS CONTINUE WITH WHEEZING AND RHONCHI BILATERALLY. ABDOMEN IS SOFT, ROUND, AND NON-TENDER. NORMAL BOWEL SOUNDS ARE NOTED IN ALL QUADRANTS. VITAL SIGNS THIS MORNING ARE 97.4-88-28-97%-128/75. A CBC AND CMP WERE OBTAINED THIS MORNING. ABNORMAL LAB VALUES INCLUDE THE FOLLOWING: HGB 11.8, HCT 33.8, GLUCOSE 115, ALBUMIN 2.4. A CHEST XRAY IS PENDING . TODAY, WE WILL CONTINUE WITH CURRENT PLAN OF CARE. WE PLAN TO FOLLOW UP WITH AM LABS AND CONTINUE TO MONITOR. - Past Medical Family Social History Past Med/Fam/Surg Hx: No changes since H&P Allergies: Allergies Penicillins Allergy (Verified 03/02/17 20:54) Sulfa (Sulfonamide Antibiotics) [SULFA] Allergy (Verified 03/02/17 20:54) - Review of Systems ROS: No change since H&P - Vital Signs and I&O's Vital Signs: Temperature 97.8 F Pulse Rate [Right Brachial] 79 Pulse Rate [Bilateral Radial] 88 Pulse Rate 77 Respiratory Rate 26 Blood Pressure [Left Arm] 129/58 Blood Pressure [Right Arm] 134/94 Blood Pressure 153/78 O2 Sat by Pulse Oximetry 96 Intake and Output: Intake & Output 03/02/17 03/03/17 03/04/17 03/05/17 11:59 11:59 11:59 11:59 Intake Total 1040 2174 750 Output Total 430 900 Balance 1040 1744 -150 - Physical Exam Oriented: Unable to test Eyes: Normal Ear: Normal Nose: Normal Throat: Normal Respiratory: Generalized, Wheezes, Rhonchi Cardiovascular: Normal : Normal Auscultation: Bowel Sounds: Normal Palpation: Normal Tenderness: Normal Skin: Normal Musculoskeletal: Instability Psychiatric: Normal Mood Description: Calm Affect: Normal Speech Pattern: Clear, Appropriate - Laboratory and Diagnostics Result Diagrams: 03/05/17 04:05 03/05/17 04:05 Labs: 03/02/17 19:55 Blood Blood Culture - Preliminary 03/02/17 19:50 Blood Blood Culture - Preliminary 03/02/17 21:26 Sputum - Expectorated Sputum Sputum Culture - Final 03/02/17 21:26 Sputum - Expectorated Sputum - Final Laboratory WBC 9.9 X10^3/uL (3.6-10.0) 03/05/17 04:05 RBC 3.51 X10^6/uL (3.5-5.4) 03/05/17 04:05 Hgb 11.4 g/dL (12.0-16.0) L 03/05/17 04:05 Hct 33.8 % (36.0-47.0) L 03/05/17 04:05 MCV 96.2 fL (80.0-100.0) 03/05/17 04:05 MCH 32.4 pg (27.0-34.0) 03/05/17 04:05 MCHC 33.7 g/dL (33.0-35.0) 03/05/17 04:05 RDW 13.8 % (11.6-16.5) 03/05/17 04:05 Plt Count 298 X10^3/uL (150.0-450.0) 03/05/17 04:05 Plt Count Comment Adequate (ADEQUATE) 03/05/17 04:05 MPV 8.1 fL (7.4-11.0) 03/05/17 04:05 Neut % 83.2 % (42.0-75.0) H 03/05/17 04:05 Lymph % 9.2 % (21.0-51.0) L 03/05/17 04:05 [place] % 7.1 % (0.0-13.0) 03/05/17 04:05 Eos % 0.2 % (0.9-2.9) L 03/05/17 04:05 Baso % 0.3 % (0.2-1.0) 03/05/17 04:05 Neut # 8.2 x10^3/uL (2.2-4.8) H 03/05/17 04:05 Lymph # 0.9 X10^3/uL (1.3-2.9) L 03/05/17 04:05 [place] # 0.7 x10^3/uL (0.3-0.8) 03/05/17 04:05 Eos # 0.0 x10^3/uL (0.0-0.2) 03/05/17 04:05 Baso # 0.0 X10^3/uL (0.0-0.1) 03/05/17 04:05 Absolute Nucleated RBC 0.0 /100WBC 03/05/17 04:05 Total Counted 100 03/05/17 04:05 Neutrophils % (Manual) 65 % (39-76) 03/05/17 04:05 Band Neutrophils % 13 % (0-10) H 03/05/17 04:05 Lymphocytes % (Manual) 12 % (13-43) L 03/05/17 04:05 Monocytes % (Manual) 10 % (4-9) H 03/05/17 04:05 Plt Morphology Comment Normal (NORMAL) 03/05/17 04:05 RBC Morphology Normal (NORMAL) 03/05/17 04:05 Sodium 140 mmol/L (136-145) 03/05/17 04:05 Corrected Sodium 140 mmol/L (136-145) 03/05/17 04:05 Potassium 3.9 mmol/L (3.5-5.1) 03/05/17 04:05 Chloride 107 mmol/L (98-107) 03/05/17 04:05 Carbon Dioxide 25.7 mmol/L (21-32) 03/05/17 04:05 BUN 18 mg/dL (7-18) 03/05/17 04:05 Creatinine 0.96 mg/dL (0.55-1.02) 03/05/17 04:05 Est GFR (MDRD) Af Amer > 60 (>60) 03/05/17 04:05 Est GFR (MDRD) Non-Af 58 (>60) L 03/05/17 04:05 Glucose 115 mg/dL (65-99) H 03/05/17 04:05 Calcium 8.8 mg/dL (8.5-10.1) 03/05/17 04:05 Corrected Calcium 10.1 mg/dL (8.5-10.1) 03/05/17 04:05 Total Bilirubin 0.10 mg/dL (0.2-1.0) L 03/05/17 04:05 AST 32 Units/L (15-37) 03/05/17 04:05 ALT 38 Units/L (12-78) 03/05/17 04:05 Alkaline Phosphatase 58 Units/L (46-116) 03/05/17 04:05 Total Protein 6.4 g/dL (6.4-8.2) 03/05/17 04:05 Albumin 2.4 g/dL (3.4-5.0) L 03/05/17 04:05 Globulin 4.0 g/dL (2.5-4.5) 03/05/17 04:05 Albumin/Globulin Ratio 0.6 Ratio (1.1-2.1) L 03/05/17 04:05 Specimen Type Catherized urine 03/04/17 01:00 Urine Color Yellow (YELLOW) 03/04/17 01:00 Urine Appearance Slightly hazy (CLEAR) 03/04/17 01:00 Urine pH 5.0 (5.0 - 8.0) 03/04/17 01:00 Ur Specific [place] 1.020 (1.000-1.030) 03/04/17 01:00 Urine Protein 2+ (NEGATIVE) 03/04/17 01:00 Urine Glucose (UA) Negative (NEGATIVE) 03/04/17 01:00 Urine Ketones 1+ (NEGATIVE) 03/04/17 01:00 Urine Occult Blood Negative (NEGATIVE) 03/04/17 01:00 Urine Nitrite Positive (NEGATIVE) 03/04/17 01:00 Urine Bilirubin Negative (NEGATIVE) 03/04/17 01:00 Urine Urobilinogen Normal (NORMAL) 03/04/17 01:00 Ur Leukocyte Esterase 1+ (NEGATIVE) 03/04/17 01:00 Urine RBC None seen /HPF (NEGATIVE) 03/04/17 01:00 Urine WBC 6-8 /HPF (NEGATIVE) 03/04/17 01:00 Ur Squamous Epith Cells Rare /HPF (NEGATIVE) 03/04/17 01:00 Urine Bacteria 2+ /HPF (NEGATIVE) 03/04/17 01:00 Ur Culture Indicated? Yes/culture set up 03/04/17 01:00 - Plan (1) Acute bronchitis Status: Acute Qualifiers: Bronchitis organism: unspecified organism Qualified Code(s): J20.9 - Acute bronchitis, unspecified Plan: DUONEB Q4H, PULMICORT NEX TX BID, FORTAZ 1GM IV Q8H, LEVAQUIN 500MG DAILY , SUPPLEMENTAL OXYGEN, ROBITUSSIN QID, TUSSIONEX 5ML Q12H PRN, CONTINUE TO MONITOR LABS AND CHEST XRAY (2) COPD exacerbation Status: Acute Plan: DUONEB Q4H, PULMICORT NEX TX BID, SOLU-MEDROL 40MG IV Q8H, SUPPLEMENTAL OXYGEN, CONTINUE TO MONITOR LABS AND CHEST XRAY (3) UTI (urinary tract infection) Status: Acute Qualifiers: Urinary tract infection type: acute cystitis Hematuria presence: without hematuria Qualified Code(s): N30.00 - Acute cystitis without hematuria Plan: LEVAQUIN 500MG IV DAILY, CONTINUE TO MONITOR (4) GERD (gastroesophageal reflux disease) Status: Acute Qualifiers: Esophagitis presence: esophagitis presence not specified Qualified Code(s) : K21.9 - Gastro-esophageal reflux disease without esophagitis Plan: CONTINUE PEPCID 20MG PO BID, CONTINUE TO MONITOR
[2017-03-05] MEDS: SINGULAIR TAB 10 MG PO SCH (21:22)
[2017-03-06] MEDS: DUONEB 0.5 MG/3 MG NEB SCH ×4 (00:22→12:09)
[2017-03-06] MEDS ORDERED: NS 1/2 1000 ML IV 1,000 ML IV ONE (01:45)
[2017-03-06 05:12] LABS: BASOPHILS % (AUTO) 0.2 % (0.2-1.0); EOSINOPHILS % (AUTO) 0.1 % (0.9-2.9); HEMATOCRIT 34.3 % (36.0-47.0); HEMOGLOBIN 11.7 g/dL (12.0-16.0); LYMPHOCYTES # (AUTO) 1.8 X10^3/uL (1.3-2.9); LYMPHOCYTES % (AUTO) 17.7 % (21.0-51.0); MEAN CORPUSCULAR HEMOGLOBIN 32.6 pg (27.0-34.0); MEAN CORPUSCULAR VOLUME 95.9 fL (80.0-100.0); MEAN PLATELET VOLUME 7.8 fL (7.4-11.0); MONOCYTES # (AUTO) 1.2 x10^3/uL (0.3-0.8); MONOCYTES % (AUTO) 11.4 % (0.0-13.0); NEUTROPHILS # (AUTO) 7.2 x10^3/uL (2.2-4.8); NEUTROPHILS % (AUTO) 70.6 % (42.0-75.0); PLATELET COUNT 295 X10^3/uL (150.0-450.0); RED BLOOD COUNT 3.58 X10^6/uL (3.5-5.4); RED CELL DISTRIBUTION WIDTH 13.8 % (11.6-16.5); WHITE BLOOD COUNT 10.2 X10^3/uL (3.6-10.0)
[2017-03-06 05:26] LABS: ALANINE AMINOTRANSFERASE 35 Units/L (12-78); ALBUMIN 2.5 g/dL (3.4-5.0); ALKALINE PHOSPHATASE 56 Units/L (46-116); ASPARTATE AMINO TRANSFERASE 24 Units/L (15-37); BLOOD UREA NITROGEN 18 mg/dL (7-18); CALCIUM 8.8 mg/dL (8.5-10.1); CARBON DIOXIDE 27.1 mmol/L (21-32); CHLORIDE 108 mmol/L (98-107); CREATININE 0.84 mg/dL (0.55-1.02); SODIUM 144 mmol/L (136-145); TOTAL PROTEIN 6.2 g/dL (6.4-8.2); eGFR BLACK RACES > 60 (>60); eGFR NON BLACK RACES > 60 (>60)
[2017-03-06 05:51] LABS: BAND NEUTROPHILS % 9 % (0-10); PLATELET MORPHOLOGY COMMENT NORMAL (NORMAL)
[2017-03-06] MEDS: FORTAZ or TAZICEF INJ 1 GM in NS 50 ML IV + SPIKE MINIBAG* 50 ML IV SCH (05:56)
[2017-03-06] MEDS: PULMICORT NEB TX 0.5 MG NEB SCH (08:58)
[2017-03-06] MEDS: MILK OF MAGNESIA PO SCH (09:33)
[2017-03-06] MEDS: COLACE CAP 100 MG PO SCH (09:33)
[2017-03-06] MEDS: LASIX PO SCH (09:33)
[2017-03-06] MEDS: PEPCID TAB 20 MG PO SCH (09:33)
[2017-03-06] MEDS: LEVAQUIN PREMIX IV 500 MG 500 MG/100 ML BAG IV SCH (09:33)
[2017-03-06] MEDS: ROBITUSSIN DM PO SCH (09:34)
[2017-03-06 12:15] VITALS: BP 119/51
== END 2017-03-06 14:35 | DRG 202 ==
LOC: MED/SURG 16:48
PROVIDERS: ADMIT Internal Medicine; ATTEND Internal Medicine
DX: J20.8 Acute bronchitis due to other specified organisms (principal); J44.1 Chronic obstructive pulmonary disease with (acute) exacerbation; R06.02 Shortness of breath; K21.9 Gastro-esophageal reflux disease without esophagitis; I10 Essential (primary) hypertension; N30.00 Acute cystitis without hematuria
CPT/HCPCS: 36415; 71010; 80053; 81001; 85025; 87040; 87070; 87086; 87205; 94640; 94760; A4222; J0713; J1956; J2920; J7620; J7626

== ENCOUNTER → 2017-05-21 | Outpatient (CLI) | payer OTHER, MEDICAID ==
--- NOTE | 2017-05-21 11:24 | RAD ---
HISTORY: Upper respiratory tract infection. Study: AP upright chest Comparison: 03/06/2017 Findings: Mild bibasilar atelectatic change/infiltrate is noted, not felt to be significantly changed. Moderat e cardiomegaly is present. Moderate osteopenia is noted. Moderate degenerative changes present with in both shoulders. IMPRESSION: 1. Cardiomegaly with mild pulmonary vascular congestion. 2. Mild bibasilar atelectasis/infiltrate. Reported By:
== END | disposition home or self-care (01) ==
LOC: RAD 09:46
PROVIDERS: ATTEND Internal Medicine
DX: J06.9 Acute upper respiratory infection, unspecified (principal); J98.11 Atelectasis; I51.7 Cardiomegaly
CPT/HCPCS: 71010

== ENCOUNTER 2017-05-22 00:58 | Inpatient (IN) | payer OTHER, MEDICAID ==
[2017-05-22] MEDS ORDERED: DUONEB 0.5 MG/3 MG NEB ONE ×2 (01:01→06:45)
--- NOTE | 2017-05-22 01:02 | DR.GENAD ---
HPI - PCP Primary Care Physician: Dr Nichols - Complaint/Symptoms Chief Complaint Doctors Comments: Patient presented to the ED for evaluartion from the correction due to respiratory distress of unknown duration. PMH - PMH Past Medical History: Arthritis, COPD, Dementia, GERD, Hypertension Past Surgical History: Yes Surgical History: Unknown - Social History Do you use any recreational Drugs:: No ROS - Review of Systems Eyes: No Symptoms Reported ENTM: No Symptoms Reported Respiratoy: Non-Productive Cough Cardiovascular: No Symptoms Reported Gastrointestinal/Abdominal: No Symptoms Reported Genitourinary: No Symptoms Reported Neurological: No Symptoms Reported Musculoskeletal: No Symptoms Reported Integumentary: No Symptoms Reported Hematologic/Lymphatic: No Symptoms Reported Endocrine: No Symptoms Reported Psychiatric: No Symptoms Reported All Other Systems: Reviewed and Negative PE - Vital Signs Vitals: Temperature 99.4 F Pulse Rate 94 Respiratory Rate 25 Blood Pressure [Left Arm] 129/58 Blood Pressure [Right Arm] 119/51 Blood Pressure 130/83 O2 Sat by Pulse Oximetry 100 - General General Appearance: Alert, Lethargic - Head Head Exam: Normal Inspection, Atraumatic - Eyes Eye exam: Normal Appearance, PERRL, EOMI - ENT ENT Exam: Mucous Membranes Dry External Ear Exam: Normal External Inspection TM/Canal Exam: Bilateral Normal Nose Exam: Normal Nose Exam Mouth Exam: Normal Inspection Throat Exam: Normal Inspection - Neck Neck Exam: Normal Inspection, Full ROM - Chest Chest Inspection: Normal Inspection - Respiratory Respiratory Exam: Normal Lung Sounds Bilat Respiratory Exam: Bilateral Clear to Auscultation - Cardiovascular Cardiovascular Exam: Regular Rate, Normal Rhythm - Abdominal Exam Abdominal Exam: Tenderness (generalized) Abdominal Tenderness: Diffuse - Extremities Extremities Exam: Edema - Back Back Exam: Normal Inspection - Neurologic Neurological Exam: Alert - Psychiatric Psychiatric Exam: Depressed - Skin Skin Exam: Warm, Dry, Intact Course - Reevaluation 1st: Improved - Consultation Called: 04:35 (Dr Blake agreed to admit for further treatment and evaluation) ROR - Labs Reviewed Result Diagrams: 05/22/17 01:00 05/22/17 01:00 Laboratory: WBC 9.5 X10^3/uL (3.6-10.0) 05/22/17 01:00 RBC 3.60 X10^6/uL (3.5-5.4) 05/22/17 01:00 Hgb 11.4 g/dL (12.0-16.0) L 05/22/17 01:00 Hct 34.3 % (36.0-47.0) L 05/22/17 01:00 MCV 95.2 fL (80.0-100.0) 05/22/17 01:00 MCH 31.8 pg (27.0-34.0) 05/22/17 01:00 MCHC 33.4 g/dL (33.0-35.0) 05/22/17 01:00 RDW 14.6 % (11.6-16.5) 05/22/17 01:00 Plt Count 261 X10^3/uL (150.0-450.0) 05/22/17 01:00 Plt Count Comment Adequate (ADEQUATE) 05/22/17 01:00 MPV 7.7 fL (7.4-11.0) 05/22/17 01:00 Neut % 68.8 % (42.0-75.0) 05/22/17 01:00 Lymph % 11.6 % (21.0-51.0) L 05/22/17 01:00 [place] % 16.7 % (0.0-13.0) H 05/22/17 01:00 Eos % 2.5 % (0.9-2.9) 05/22/17 01:00 Baso % 0.4 % (0.2-1.0) 05/22/17 01:00 Neut # 6.5 x10^3/uL (2.2-4.8) H 05/22/17 01:00 Lymph # 1.1 X10^3/uL (1.3-2.9) L 05/22/17 01:00 [place] # 1.6 x10^3/uL (0.3-0.8) H 05/22/17 01:00 Eos # 0.2 x10^3/uL (0.0-0.2) 05/22/17 01:00 Baso # 0.0 X10^3/uL (0.0-0.1) 05/22/17 01:00 Absolute Nucleated RBC 0.1 /100WBC 05/22/17 01:00 Total Counted 100 05/22/17 01:00 Neutrophils % (Manual) 46 % (39-76) 05/22/17 01:00 Band Neutrophils % 23 % (0-10) H 05/22/17 01:00 Lymphocytes % (Manual) 18 % (13-43) 05/22/17 01:00 Monocytes % (Manual) 18 % (4-9) H 05/22/17 01:00 Eosinophils % (Manual) 1 % (0-6) 05/22/17 01:00 Metamyelocytes % 1 05/22/17 01:00 Plt Morphology Comment Normal (NORMAL) 05/22/17 01:00 RBC Morphology Normal (NORMAL) 05/22/17 01:00 Sodium 145 mmol/L (136-145) 05/22/17 01:00 Corrected Sodium 145 mmol/L (136-145) 05/22/17 01:00 Potassium 3.6 mmol/L (3.5-5.1) 05/22/17 01:00 Chloride 108 mmol/L (98-107) H 05/22/17 01:00 Carbon Dioxide 25.7 mmol/L (21-32) 05/22/17 01:00 BUN 15 mg/dL (7-18) 05/22/17 01:00 Creatinine 0.67 mg/dL (0.55-1.02) 05/22/17 01:00 Est GFR (MDRD) Af Amer > 60 (>60) 05/22/17 01:00 Est GFR (MDRD) Non-Af > 60 (>60) 05/22/17 01:00 Glucose 117 mg/dL (65-99) H 05/22/17 01:00 Calcium 8.6 mg/dL (8.5-10.1) 05/22/17 01:00 Corrected Calcium 9.6 mg/dL (8.5-10.1) 05/22/17 01:00 Total Bilirubin 0.50 mg/dL (0.2-1.0) 05/22/17 01:00 AST 44 Units/L (15-37) H 05/22/17 01:00 ALT 54 Units/L (12-78) 05/22/17 01:00 Alkaline Phosphatase 83 Units/L (46-116) 05/22/17 01:00 Total Protein 6.9 g/dL (6.4-8.2) 05/22/17 01:00 Albumin 2.8 g/dL (3.4-5.0) L 05/22/17 01:00 Globulin 4.1 g/dL (2.5-4.5) 05/22/17 01:00 Albumin/Globulin Ratio 0.7 Ratio (1.1-2.1) L 05/22/17 01:00 Specimen Type Catherized urine 05/22/17 03:04 Urine Color Yellow (YELLOW) 05/22/17 03:04 Urine Appearance Clear (CLEAR) 05/22/17 03:04 Urine pH 5.0 (5.0 - 8.0) 05/22/17 03:04 Ur Specific [place] 1.015 (1.000-1.030) 05/22/17 03:04 Urine Protein 1+ (NEGATIVE) 05/22/17 03:04 Urine Glucose (UA) Negative (NEGATIVE) 05/22/17 03:04 Urine Ketones Negative (NEGATIVE) 05/22/17 03:04 Urine Occult Blood 3+ (NEGATIVE) 05/22/17 03:04 Urine Nitrite Negative (NEGATIVE) 05/22/17 03:04 Urine Bilirubin Negative (NEGATIVE) 05/22/17 03:04 Urine Urobilinogen Normal (NORMAL) 05/22/17 03:04 Ur Leukocyte Esterase 1+ (NEGATIVE) 05/22/17 03:04 Urine RBC 0-3 /HPF (NEGATIVE) 05/22/17 03:04 Urine WBC 0-3 /HPF (NEGATIVE) 05/22/17 03:04 Ur Squamous Epith Cells Rare /HPF (NEGATIVE) 05/22/17 03:04 Amorphous Sediment Trace /HPF (NEGATIVE) 05/22/17 03:04 Urine Bacteria Trace /HPF (NEGATIVE) 05/22/17 03:04 Ur Culture Indicated? No/not indicated 05/22/17 03:04 - XRAY XRAY Interpreted by: Radiologist (Acute Abd Series:The trachea is shifted to the right. Heart size remains moderately enlarged. Increased reticular opacities within the right greater than left lung bases appears similar to prior examination. There is pleural parenchymal scarring within the right and left lateral chest quintero, No large effusin or pneumothorax. No new osseous abnormality. Impression: No significant change in cardiomegaly,COPD and chronic interstitial lung changes with increased reticular opacities within both lung bases,this may represent subsegmental atelectasis; however, developing right lower lobe infiltrate should be excluded on clinical basis, radiograph follow up is recommended.) - Diagnosis Discharge Problem: RLL pneumonia Qualifiers: Pneumonia type: due to unspecified organism Qualified Code(s): J18.1 - Lobar pneumonia, unspecified organism Constipation Qualifiers: Constipation type: slow transit constipation Qualified Code(s): K59.01 - Slow transit constipation COPD (chronic obstructive pulmonary disease) Qualifiers: COPD type: unspecified COPD Qualified Code(s): J44.9 - Chronic obstructive pulmonary disease, unspecified - Discharge Plan Condition: Stable - Follow ups/Referrals Follow ups/Referrals: Marcial Nichols [Primary Care Provider] - 3 days - Instructions
--- NOTE | 2017-05-22 01:19 | RAD ---
AP Chest Indication: Hypoxia Comparison: 05/21/2017 Findings: The trachea is shifted to the right. Heart size remains moderately enlarged. Increased reticular opac ities within the right greater than left lung bases appears similar to prior examination. There is pl eural parenchymal scarring within the right and left lateral chest quintero. No large effusion or pneumo thorax. No new osseous abnormality. Impression: No significant change in cardiomegaly, COPD and chronic interstitial lung changes with in creased reticular opacities within both lung bases, this may represent subsegmental atelectasis; mariee loli developing right lower lobe infiltrate should be excluded on clinical basis. Radiographic follow- up is recommended. IMPRESSION: 1. No acute cardiopulmonary abnormality. Reported By:
[2017-05-22 01:20] LABS: BASOPHILS % (AUTO) 0.4 % (0.2-1.0); EOSINOPHILS # (AUTO) 0.2 x10^3/uL (0.0-0.2); EOSINOPHILS % (AUTO) 2.5 % (0.9-2.9); HEMATOCRIT 34.3 % (36.0-47.0); HEMOGLOBIN 11.4 g/dL (12.0-16.0); LYMPHOCYTES # (AUTO) 1.1 X10^3/uL (1.3-2.9); LYMPHOCYTES % (AUTO) 11.6 % (21.0-51.0); MEAN CORPUSCULAR HEMOGLOBIN 31.8 pg (27.0-34.0); MEAN CORPUSCULAR HGB CONC 33.4 g/dL (33.0-35.0); MEAN CORPUSCULAR VOLUME 95.2 fL (80.0-100.0); MEAN PLATELET VOLUME 7.7 fL (7.4-11.0); MONOCYTES # (AUTO) 1.6 x10^3/uL (0.3-0.8); MONOCYTES % (AUTO) 16.7 % (0.0-13.0); NEUTROPHILS # (AUTO) 6.5 x10^3/uL (2.2-4.8); NEUTROPHILS % (AUTO) 68.8 % (42.0-75.0); PLATELET COUNT 261 X10^3/uL (150.0-450.0); RED CELL DISTRIBUTION WIDTH 14.6 % (11.6-16.5); WHITE BLOOD COUNT 9.5 X10^3/uL (3.6-10.0)
[2017-05-22 01:36] LABS: ALANINE AMINOTRANSFERASE 54 Units/L (12-78); ALBUMIN 2.8 g/dL (3.4-5.0); ALKALINE PHOSPHATASE 83 Units/L (46-116); ASPARTATE AMINO TRANSFERASE 44 Units/L (15-37); BLOOD UREA NITROGEN 15 mg/dL (7-18); CALCIUM 8.6 mg/dL (8.5-10.1); CARBON DIOXIDE 25.7 mmol/L (21-32); CHLORIDE 108 mmol/L (98-107); COR CA(FOR HYPOALB) 9.6 mg/dL (8.5-10.1); COR NA(FOR HYPERGLY) 145 mmol/L (136-145); CREATININE 0.67 mg/dL (0.55-1.02); SODIUM 145 mmol/L (136-145); TOTAL PROTEIN 6.9 g/dL (6.4-8.2); eGFR BLACK RACES > 60 (>60); eGFR NON BLACK RACES > 60 (>60)
--- NOTE | 2017-05-22 01:53 | RAD ---
Decubitus and supine imaging of the abdomen and pelvis Indication: Abdominal pain Findings: There is moderate diffuse gaseous dilatation of the colon with increased fecal material wit hin the rectum. Bowel gas pattern within the small bowel is nonspecific however not obstructive. No f ree air or pneumatosis within visualized small bowel. No abnormal mass or calcification identified wi thin the abdomen or pelvis. Chronic deformity of the right femoral head with proximal migration of th e femur noted. No acute osseous abnormality identified. Impression: Moderate gaseous dilatation of the colon with increased fecal material within the rectum suggests fecal impaction and functional distal colonic obstruction. Small bowel gas pattern is nonspecific. Reported By:
[2017-05-22] MEDS ORDERED: NS 1000 ML 1,000 ML IV SCH (02:00)
[2017-05-22 02:19] LABS: BAND NEUTROPHILS % 23 % (0-10); METAMYELOCYTES % 1
[2017-05-22 02:20] LABS: PLATELET MORPHOLOGY COMMENT NORMAL (NORMAL)
[2017-05-22] MEDS ORDERED: FLEET ENEMA ADULT PR ONE (02:38)
[2017-05-22] MEDS ORDERED: FLEET ENEMA ADULT ONE (02:40)
[2017-05-22] MEDS ORDERED: DUONEB 0.5 MG/3 MG NEB SCH (03:30)
[2017-05-22 03:52] LABS: BILIRUBIN,URINE NEGATIVE (NEGATIVE); BLOOD/HEMOGLOBIN,URINE 3+ (NEGATIVE); GLUCOSE, URINE NEGATIVE (NEGATIVE); KETONES,URINE NEGATIVE (NEGATIVE); LEUKOCYTE ESTERASE ,URINE 1+ (NEGATIVE); NITRITES,URINE NEGATIVE (NEGATIVE); PROTEIN,URINE 1+ (NEGATIVE); UROBILINOGEN,URINE NORMAL (NORMAL)
[2017-05-22 03:59] LABS: AMORPHOUS SEDIMENT,UR TRACE /HPF (NEGATIVE); APPEARANCE,URINE CLEAR (CLEAR); BACTERIA,URINE TRACE /HPF (NEGATIVE); COLOR,URINE YELLOW (YELLOW); RBC,URINE 0-3 /HPF (NEGATIVE); SQUAMOUS EPITHELIAL CELL,UR RARE /HPF (NEGATIVE)
[2017-05-22] MEDS: LEVAQUIN PREMIX IV 750 MG 750 MG/150 ML BAG IV SCH ×2 (04:28→08:31)
[2017-05-22 04:39] LABS: C-REACTIVE PROTEIN 187.2 mg/L (0-3.0)
[2017-05-22 04:58] LABS: BASOPHILS % (AUTO) 0.4 % (0.2-1.0); EOSINOPHILS # (AUTO) 0.1 x10^3/uL (0.0-0.2); EOSINOPHILS % (AUTO) 1.3 % (0.9-2.9); HEMATOCRIT 35.4 % (36.0-47.0); HEMOGLOBIN 11.9 g/dL (12.0-16.0); LYMPHOCYTES # (AUTO) 0.9 X10^3/uL (1.3-2.9); LYMPHOCYTES % (AUTO) 9.8 % (21.0-51.0); MEAN CORPUSCULAR HGB CONC 33.8 g/dL (33.0-35.0); MEAN CORPUSCULAR VOLUME 94.7 fL (80.0-100.0); MEAN PLATELET VOLUME 7.7 fL (7.4-11.0); MONOCYTES # (AUTO) 1.5 x10^3/uL (0.3-0.8); MONOCYTES % (AUTO) 15.7 % (0.0-13.0); NEUTROPHILS # (AUTO) 6.9 x10^3/uL (2.2-4.8); NEUTROPHILS % (AUTO) 72.8 % (42.0-75.0); PLATELET COUNT 303 X10^3/uL (150.0-450.0); RED BLOOD COUNT 3.74 X10^6/uL (3.5-5.4); RED CELL DISTRIBUTION WIDTH 14.4 % (11.6-16.5); WHITE BLOOD COUNT 9.5 X10^3/uL (3.6-10.0)
[2017-05-22] MEDS ORDERED: NS 1/2 1000 ML IV 1,000 ML IV SCH (05:00)
[2017-05-22 05:06] LABS: ALANINE AMINOTRANSFERASE 60 Units/L (12-78); ALBUMIN 2.9 g/dL (3.4-5.0); ALKALINE PHOSPHATASE 92 Units/L (46-116); ASPARTATE AMINO TRANSFERASE 51 Units/L (15-37); BLOOD UREA NITROGEN 15 mg/dL (7-18); CALCIUM 8.6 mg/dL (8.5-10.1); CARBON DIOXIDE 26.9 mmol/L (21-32); CHLORIDE 107 mmol/L (98-107); COR CA(FOR HYPOALB) 9.5 mg/dL (8.5-10.1); COR NA(FOR HYPERGLY) 146 mmol/L (136-145); CREATININE 0.74 mg/dL (0.55-1.02); SODIUM 146 mmol/L (136-145); TOTAL PROTEIN 7.3 g/dL (6.4-8.2); eGFR BLACK RACES > 60 (>60); eGFR NON BLACK RACES > 60 (>60)
[2017-05-22 05:19] LABS: BAND NEUTROPHILS % 34 % (0-10); METAMYELOCYTES % 2; PLATELET MORPHOLOGY COMMENT NORMAL (NORMAL)
[2017-05-22] MEDS: ROBITUSSIN DM PO SCH ×4 (08:31→21:11)
[2017-05-22] MEDS: NS 1000 ML 1,000 ML IV SCH ×3 (09:31→23:30)
[2017-05-22] MEDS: DUONEB 0.5 MG/3 MG NEB SCH ×4 (09:45→20:45)
[2017-05-22] MEDS: COLACE SYRUP 100 MG UDC PO SCH (10:10)
[2017-05-22] MEDS: MILK OF MAGNESIA PO SCH ×4 (10:10→21:11)
[2017-05-22] MEDS: MIRALAX POWDER (1 DOSE 17GM) PO SCH (10:10)
[2017-05-22] MEDS ORDERED: PATIENT'S HOME MEDICATION (Albuterol Sulfate [Proair Hfa] 2 PUFF) INH SCH (11:30)
[2017-05-22] MEDS ORDERED: PATIENT'S HOME MEDICATION (Ascorbic Acid [Vitamin C] 500 MG) PO SCH (11:30)
[2017-05-22] MEDS ORDERED: AMINO AC PO SCH (11:30)
[2017-05-22] MEDS ORDERED: [UNRECOGNIZED DRUG - OTHER] PO SCH (11:30)
[2017-05-22] MEDS ORDERED: WHEY PRO PO SCH (11:30)
[2017-05-22] MEDS ORDERED: FLUTICASONE PO SCH (11:30)
[2017-05-22] MEDS ORDERED: PROTEIN HYDR PO SCH (11:30)
[2017-05-22] MEDS ORDERED: SALMETEROL PO SCH (11:30)
[2017-05-22] MEDS ORDERED: [UNRECOGNIZED DRUG - OTHER] PO SCH (11:30)
[2017-05-22] MEDS: LASIX PO SCH (13:22)
[2017-05-22] MEDS: MUCINEX EXPECTORANT PO SCH ×2 (13:22→21:11)
[2017-05-22] MEDS: PEPCID TAB 20 MG PO SCH ×2 (13:22→21:12)
[2017-05-22 15:03] LABS: BILIRUBIN,URINE NEGATIVE (NEGATIVE); BLOOD/HEMOGLOBIN,URINE NEGATIVE (NEGATIVE); GLUCOSE, URINE NEGATIVE (NEGATIVE); KETONES,URINE NEGATIVE (NEGATIVE); LEUKOCYTE ESTERASE ,URINE 1+ (NEGATIVE); NITRITES,URINE NEGATIVE (NEGATIVE); PROTEIN,URINE 2+ (NEGATIVE); UROBILINOGEN,URINE NORMAL (NORMAL)
[2017-05-22 15:12] LABS: AMORPHOUS SEDIMENT,UR 1+ /HPF (NEGATIVE); APPEARANCE,URINE SLIGHTLY HAZY (CLEAR); BACTERIA,URINE 1+ /HPF (NEGATIVE); COLOR,URINE YELLOW (YELLOW); HYALINE CASTS, URINE FEW /LPF (NEGATIVE); RBC,URINE 0-1 /HPF (NEGATIVE); SQUAMOUS EPITHELIAL CELL,UR RARE /HPF (NEGATIVE)
[2017-05-22] MEDS: SINGULAIR TAB 10 MG PO SCH (21:12)
[2017-05-23] MEDS: DUONEB 0.5 MG/3 MG NEB SCH ×6 (00:51→20:37)
[2017-05-23] MEDS: TUSSIONEX PENNKINETIC SUSP PO PRN (02:03)
[2017-05-23] MEDS: NS 1000 ML 1,000 ML IV SCH ×2 (05:53→13:10)
[2017-05-23 06:15] LABS: BASOPHILS % (AUTO) 0.3 % (0.2-1.0); EOSINOPHILS # (AUTO) 0.4 x10^3/uL (0.0-0.2); EOSINOPHILS % (AUTO) 5.3 % (0.9-2.9); HEMOGLOBIN 10.4 g/dL (12.0-16.0); LYMPHOCYTES # (AUTO) 1.4 X10^3/uL (1.3-2.9); LYMPHOCYTES % (AUTO) 17.2 % (21.0-51.0); MEAN CORPUSCULAR HEMOGLOBIN 31.9 pg (27.0-34.0); MEAN CORPUSCULAR HGB CONC 33.7 g/dL (33.0-35.0); MEAN CORPUSCULAR VOLUME 94.8 fL (80.0-100.0); MEAN PLATELET VOLUME 7.7 fL (7.4-11.0); MONOCYTES # (AUTO) 1.3 x10^3/uL (0.3-0.8); MONOCYTES % (AUTO) 15.9 % (0.0-13.0); NEUTROPHILS % (AUTO) 61.3 % (42.0-75.0); PLATELET COUNT 273 X10^3/uL (150.0-450.0); RED BLOOD COUNT 3.28 X10^6/uL (3.5-5.4); RED CELL DISTRIBUTION WIDTH 14.4 % (11.6-16.5); WHITE BLOOD COUNT 8.2 X10^3/uL (3.6-10.0)
[2017-05-23 06:32] LABS: ALANINE AMINOTRANSFERASE 44 Units/L (12-78); ALBUMIN 2.4 g/dL (3.4-5.0); ALKALINE PHOSPHATASE 99 Units/L (46-116); ASPARTATE AMINO TRANSFERASE 31 Units/L (15-37); BLOOD UREA NITROGEN 13 mg/dL (7-18); CALCIUM 8.1 mg/dL (8.5-10.1); CHLORIDE 110 mmol/L (98-107); COR CA(FOR HYPOALB) 9.4 mg/dL (8.5-10.1); CREATININE 0.63 mg/dL (0.55-1.02); SODIUM 145 mmol/L (136-145); TOTAL PROTEIN 6.3 g/dL (6.4-8.2); eGFR BLACK RACES > 60 (>60); eGFR NON BLACK RACES > 60 (>60)
--- NOTE | 2017-05-23 06:51 | RAD ---
Examination: Portable AP chest History: None Comparison reference 05/22/2017 Findings: Stable heart size and dilated aorta. Persistent pulmonary vascular distention. Increasing a irspace disease/atelectasis right lung base. No pneumothorax seen. Impression: Interval increase in pneumonia/atelectasis right lower lung. Reported By:
[2017-05-23 07:14] LABS: ERYTHROCYTE SEDIMENTATION RATE 87 MM/HOUR (0-20)
[2017-05-23] MEDS: K-DUR TAB 20 MEQ PO SCH ×3 (09:09→22:24)
[2017-05-23] MEDS: MIRALAX POWDER (1 DOSE 17GM) PO SCH (09:09)
[2017-05-23] MEDS: COLACE SYRUP 100 MG UDC PO SCH (09:09)
[2017-05-23] MEDS: LASIX PO SCH (09:09)
[2017-05-23] MEDS: LEVAQUIN PREMIX IV 750 MG 750 MG/150 ML BAG IV SCH (09:09)
[2017-05-23] MEDS: MILK OF MAGNESIA PO SCH ×2 (09:09→12:34)
[2017-05-23] MEDS: PEPCID TAB 20 MG PO SCH ×2 (09:11→23:03)
[2017-05-23] MEDS: MUCINEX EXPECTORANT PO SCH ×2 (09:11→22:25)
[2017-05-23] MEDS: ROBITUSSIN DM PO SCH ×4 (09:11→23:03)
--- NOTE | 2017-05-23 10:54 | DR.H&P ---
H&P - History & Physical for Day of: H&P Date: 05/22/17 - Chief Complaint Chief Complaint: short of breath - Allergies Allergies/Adverse Reactions: Allergies Allergy/AdvReac Type Severity Reaction Status Date / Time Penicillins Allergy Verified 03/02/17 20:54 Sulfa (Sulfonamide Allergy Verified 03/02/17 20:54 Antibiotics) [SULFA] - History of Present Illness History of Present Illness: is a 86 year old patient of ours who presented to the emergency room from [facility] with reports from staff of respiratory distress of unknown duration. [facility] staff reports that patient's oxygen saturation was in the 80's on room air and patient complained of shortness of breath. On examination, heart is normal in rate and rhythm. Lungs are noted with scattered wheezing and rhonchi throughout. She is noted with shallow, labored respirations. She is noted with a non-productive cough. Abdomen is flat, soft, and noted with diffuse tenderness on palpation. Decreased bowel sounds noted in all quadrants. Medical History includes the following: Dementia, Cardiac Arrhythmia, Hypertension, Bronchitis, Pneumonia, COPD, Gerd, Esophageal Disorders, Constipation, Dysphagia, UTI's, ArthritisOn arrival to the emergency room, vitals were 99.4, 94, 25, 100% 2L NC, 130/83. Labs, chest xray, and abdominal xray were obtained. Abnormal Lab values include the following: Hgb 11.4, 11.9, Hct 34.3, 35.4, Sodium 146, Chloride 108, Glucose 117, 118, AST 44, 51, CRP 187.20, Albumin 2.8, 2.9, A/G Ratio 0.7. Blood Cultures x2 Pending. Sputum Culture Pending, Sputum Gram Stain - Gram Pos Diplococci Rare, Gram Pos Cocci Many, Gram Neg Rods Rare, WBC Few. Chest X-Ray: No acute cardiopulmonary abnormality. She was given duoneb x 2 in the ER and a fleets enema with no improvement in symptoms noted. We admitted patient to the hospital for further treatment and evaluation. She was started on the pneumonia protocol on levaquin 750mg iv daily. We will start a bowel regimen for fecal impaction. We plan to follow up with am labs and continue to monitor patient. - Past Medical History Past Medical History: Arthritis, COPD, Dementia, GERD, Hypertension Additional Medical History: MARFANS SYNDROME, ESOPHAGEAL DISORDERS, DYSPHAGIA, BRONCHITIS, PNEUMONIA, UTI'S, MUSCLE WEAKNESS, OSTEOPOROSIS, BACK PAIN - Past Surgical History Surgical History: Unknown - Social History Does patient currently use any type of tobacco product: No Have you used tobacco products in the last 12 months: No Type of Tobacco Use: None Does any household member use tobacco: Yes Alcohol Use: None Drug Use: None - Medications Home Medications: Amino AC/Protein Hydr/Whey Pro [Prosource Tf] 1 liq PO BID 05/22/17 [History Confirmed 05/22/17] Ascorbic Acid [Vitamin C] 500 mg PO BID 05/22/17 [History Confirmed 05/22/17] Dextromethorphan HBr [Tussin Cough] 10 ml PO QID 05/22/17 [History Confirmed ] - Review of Systems Constitutional: Weakness Eyes: No Symptoms Reported. denies: See HPI, Pain, Vision Change, Conjunctivae Inflammation, Eyelid Inflammation, Redness, Other ENT: Nose Congestion. denies: Ear Pain, Ear Discharge, Nose Pain, Mouth Swelling, Throat Pain, Throat Swelling Respiratory: Cough, Shortness of Breath, Wheezing Cardiovascular: No Symptoms Reported Gastrointestinal: Abdominal Pain. denies: Nausea, Vomiting, Diarrhea, Melena, Hematochezia Genitourinary: No Symptoms Reported Musculoskeletal: No Symptoms Reported. denies: Shoulder Pain, Arm Pain, Back Pain, Hand Pain, Leg Pain, Foot Pain, Neck Pain, Other Skin: No Symptoms Reported. denies: Wound, Ecchymosis Neurological: Weakness - Physical Exam Vital Signs: Temperature 98.9 F Pulse Rate [Left Brachial] 92 Pulse Rate [Right Radial] 101 Pulse Rate 92 Respiratory Rate 32 Blood Pressure [Left Arm] 104/63 Blood Pressure [Right Arm] 124/66 Blood Pressure 130/83 O2 Sat by Pulse Oximetry 93 Oriented: Unable to test Eyes: Normal Ear: Normal Nose: Other (nasal congestion ) Throat: Normal Respiratory: Rhonchi Throughout, Wheezes Throughout Cardiovascular: Normal. negative: Murmur, Edema : Normal. negative: Dysuria, Hematuria, Frequency, Discharge, Testicular Pain , Bleeding, , Other Auscultation: Bowel Sounds: Normal Palpation: Normal Tenderness: Diffuse, Mild Skin: Normal. negative: Diaphoresis, Wound, Bruising, Ecchymosis Musculoskeletal: Normal Psychiatric: Normal Mood Description: Calm Affect: Normal - Assessment/Plan (1) RLL pneumonia Qualifiers: Pneumonia type: due to unspecified organism Qualified Code(s): J18.1 - Lobar pneumonia, unspecified organism Status: Acute Plan: pneumonia protocol, levaquin 750mg iv daily, continue respiratory tx, continue supplemental oxygen, continue to monitor (2) Constipation Qualifiers: Constipation type: slow transit constipation Qualified Code(s): K59.01 - Slow transit constipation Status: Acute Plan: milk of magnesia qid, miralax 17gm daily, colace daily, continue to monitor
[2017-05-23] MEDS ORDERED: MILK OF MAGNESIA PO PRN (13:19)
[2017-05-23] MEDS ORDERED: COLACE SYRUP 100 MG UDC PO PRN (13:20)
[2017-05-23] MEDS: SINGULAIR TAB 10 MG PO SCH (23:03)
[2017-05-24] MEDS: DUONEB 0.5 MG/3 MG NEB SCH ×6 (01:13→20:46)
[2017-05-24] MEDS: NS 1000 ML 1,000 ML IV SCH ×2 (04:46→18:28)
[2017-05-24 06:18] LABS: BASOPHILS % (AUTO) 0.5 % (0.2-1.0); EOSINOPHILS # (AUTO) 0.6 x10^3/uL (0.0-0.2); EOSINOPHILS % (AUTO) 8.6 % (0.9-2.9); HEMATOCRIT 30.2 % (36.0-47.0); HEMOGLOBIN 10.2 g/dL (12.0-16.0); LYMPHOCYTES # (AUTO) 1.1 X10^3/uL (1.3-2.9); LYMPHOCYTES % (AUTO) 16.9 % (21.0-51.0); MEAN CORPUSCULAR HEMOGLOBIN 32.1 pg (27.0-34.0); MEAN CORPUSCULAR HGB CONC 33.8 g/dL (33.0-35.0); MEAN PLATELET VOLUME 7.7 fL (7.4-11.0); MONOCYTES # (AUTO) 1.1 x10^3/uL (0.3-0.8); MONOCYTES % (AUTO) 15.7 % (0.0-13.0); NEUTROPHILS # (AUTO) 3.9 x10^3/uL (2.2-4.8); NEUTROPHILS % (AUTO) 58.3 % (42.0-75.0); PLATELET COUNT 293 X10^3/uL (150.0-450.0); RED BLOOD COUNT 3.18 X10^6/uL (3.5-5.4); RED CELL DISTRIBUTION WIDTH 14.2 % (11.6-16.5); WHITE BLOOD COUNT 6.7 X10^3/uL (3.6-10.0)
[2017-05-24 06:45] LABS: ALANINE AMINOTRANSFERASE 38 Units/L (12-78); ALBUMIN 2.3 g/dL (3.4-5.0); ALKALINE PHOSPHATASE 78 Units/L (46-116); ASPARTATE AMINO TRANSFERASE 24 Units/L (15-37); BLOOD UREA NITROGEN 8 mg/dL (7-18); CALCIUM 8.2 mg/dL (8.5-10.1); CARBON DIOXIDE 28.4 mmol/L (21-32); CHLORIDE 109 mmol/L (98-107); COR CA(FOR HYPOALB) 9.6 mg/dL (8.5-10.1); CREATININE 0.59 mg/dL (0.55-1.02); SODIUM 144 mmol/L (136-145); eGFR BLACK RACES > 60 (>60); eGFR NON BLACK RACES > 60 (>60)
--- NOTE | 2017-05-24 06:55 | RAD ---
Examination: KUB History: Follow-up constipation Comparison reference 05/22/2017 Findings: Continued marked gaseous distention of the colon. Fecal distention of the rectum. The retro peritoneal structures are obscured. The upper abdomen is not included on this image. Impression: Persistent colon distention with suggestion of fecal impaction. The possibility of distal colon obstruction from some other etiology should be clinically considered and excluded. Reported By:
[2017-05-24] MEDS: MIRALAX POWDER (1 DOSE 17GM) PO SCH (09:18)
[2017-05-24] MEDS: LASIX PO SCH (09:18)
[2017-05-24] MEDS: LEVAQUIN PREMIX IV 750 MG 750 MG/150 ML BAG IV SCH (09:18)
[2017-05-24] MEDS: K-DUR TAB 20 MEQ PO SCH ×2 (09:18→21:57)
[2017-05-24] MEDS: MUCINEX EXPECTORANT PO SCH ×2 (09:18→21:57)
[2017-05-24] MEDS: PEPCID TAB 20 MG PO SCH ×2 (09:18→21:57)
[2017-05-24] MEDS: ROBITUSSIN DM PO SCH ×4 (09:18→21:57)
[2017-05-24] MEDS: ALBUMIN HUMAN 25%- 100ML 100 ML IV SCH (10:41)
[2017-05-24] MEDS: PROCALAMINE 3 % 1,000 ML IV SCH (18:27)
[2017-05-24] MEDS: SINGULAIR TAB 10 MG PO SCH (21:58)
--- NOTE | 2017-05-24 22:13 | PCM.PROG ---
Progress Note - Progress Note for Day of Date: 05/23/17 - Subjective Subjective: WAS ADMITTED FOR PNEUMONIA, COPD, AND FECAL IMPACTION. TODAY , SHE IS LYING IN BED WITH EYES CLOSED. SHE IS EASILY AROUSED TO VERBAL STIMULI. STAFF REPORTS THAT PATIENT HAS CONTINUED WITH PRODUCTIVE COUGH AND INCREASED RESPIRATORY EFFORTS THROUGHOUT THE NIGHT. THEY ALSO REPORT THAT PATIENT HAS HAD TWO LARGE BOWEL MOVEMENTS. ON EXAMINATION, HEART IS REGULAR IN RATE AND RHYTHM. SCATTERED WHEEZING AND RHONCHI NOTED THROUGHOUT ON AUSCULATION OF LUNG BECK. SHE IS CURRENTLY UTILIZING OXYGEN AT 2L/MIN. ABDOMEN IS DISTENDED AND NOTED WITH MILD TENDERNESS ON PALPATION. HYPOACTIVE BOWEL SOUNDS NOTED TO AUSCULTATION. EXTREMITIES ARE CONTRACTED. HER VITAL SIGNS THIS MORNING ARE 98.9-92-32-93%-104/63. ABNORMAL LAB VALUES INCLUDE THE FOLLOWING: RBC 3.28, HGB 10.4, HCT 31.0, CHLORIDE 110, CALCIUM 8.1, CRP 144.50, TOTAL PROTEIN 6.3, ALBUMIN 2.4, A/G RATIO 0.6. SPUTUM AND BLOOD CULTURES ARE PENDING. A CHEST XRAY WAS OBTAINED AND REPORTED INTERVAL INCREASE IN PNEUMONIA/ATELECTASIS RIGHT LOWER LUNG. TODAY, WE WILL CONTINUE WITH IV ANTIBIOTICS AND RESPIRATORY TREATMENTS. WE PLAN TO FOLLOW UP WITH AM LABS AND CHEST XRAY AND CONTINUE TO MONITOR PATIENT. - Past Medical Family Social History Past Med/Fam/Surg Hx: No changes since H&P Allergies: Allergies Penicillins Allergy (Verified 03/02/17 20:54) Sulfa (Sulfonamide Antibiotics) [SULFA] Allergy (Verified 03/02/17 20:54) - Review of Systems ROS: No change since H&P - Vital Signs and I&O's Vital Signs: Temperature 98.1 F Pulse Rate [Left Brachial] 98 Pulse Rate [Right Radial] 101 Pulse Rate 86 Respiratory Rate 32 Blood Pressure [Left Arm] 140/63 Blood Pressure [Right Arm] 122/69 Blood Pressure 130/83 O2 Sat by Pulse Oximetry 95 Intake and Output: Intake & Output 05/22/17 05/23/17 05/24/17 05/25/17 11:59 11:59 11:59 11:59 Intake Total 100 2340 1500 600 Output Total 652 625 150 Balance 100 1688 875 450 - Physical Exam Oriented: Unable to test Eyes: Normal Ear: Normal Nose: Other (nasal congestion ) Throat: Normal Respiratory: Right, Left, Generalized, Wheezes, Rhonchi Cardiovascular: Normal. negative: Murmur, Edema : Normal. negative: Dysuria, Hematuria, Frequency, Discharge, Testicular Pain , Bleeding, , Other Auscultation: Bowel Sounds: Normal Palpation: Normal Tenderness: Diffuse, Mild Skin: Normal. negative: Diaphoresis, Wound, Bruising, Ecchymosis Musculoskeletal: Normal Psychiatric: Normal Mood Description: Calm Affect: Normal Speech Pattern: Clear, Appropriate - Laboratory and Diagnostics Result Diagrams: 05/24/17 05:19 05/24/17 05:19 Labs: 05/22/17 06:20 Sputum - Expectorated Sputum Sputum Culture - Preliminary 05/22/17 06:20 Sputum - Expectorated Sputum - Final Laboratory WBC 6.7 X10^3/uL (3.6-10.0) 05/24/17 05:19 RBC 3.18 X10^6/uL (3.5-5.4) L 05/24/17 05:19 Hgb 10.2 g/dL (12.0-16.0) L 05/24/17 05:19 Hct 30.2 % (36.0-47.0) L 05/24/17 05:19 MCV 95.0 fL (80.0-100.0) 05/24/17 05:19 MCH 32.1 pg (27.0-34.0) 05/24/17 05:19 MCHC 33.8 g/dL (33.0-35.0) 05/24/17 05:19 RDW 14.2 % (11.6-16.5) 05/24/17 05:19 Plt Count 293 X10^3/uL (150.0-450.0) 05/24/17 05:19 Plt Count Comment Adequate (ADEQUATE) 05/22/17 04:20 MPV 7.7 fL (7.4-11.0) 05/24/17 05:19 Neut % 58.3 % (42.0-75.0) 05/24/17 05:19 Lymph % 16.9 % (21.0-51.0) L 05/24/17 05:19 [place] % 15.7 % (0.0-13.0) H 05/24/17 05:19 Eos % 8.6 % (0.9-2.9) H 05/24/17 05:19 Baso % 0.5 % (0.2-1.0) 05/24/17 05:19 Neut # 3.9 x10^3/uL (2.2-4.8) 05/24/17 05:19 Lymph # 1.1 X10^3/uL (1.3-2.9) L 05/24/17 05:19 [place] # 1.1 x10^3/uL (0.3-0.8) H 05/24/17 05:19 Eos # 0.6 x10^3/uL (0.0-0.2) H 05/24/17 05:19 Baso # 0.0 X10^3/uL (0.0-0.1) 05/24/17 05:19 Absolute Nucleated RBC 0.0 /100WBC 05/24/17 05:19 Total Counted 100 05/22/17 04:20 Neutrophils % (Manual) 42 % (39-76) 05/22/17 04:20 Band Neutrophils % 34 % (0-10) H 05/22/17 04:20 Lymphocytes % (Manual) 5 % (13-43) L 05/22/17 04:20 Monocytes % (Manual) 14 % (4-9) H 05/22/17 04:20 Eosinophils % (Manual) 3 % (0-6) 05/22/17 04:20 Metamyelocytes % 2 05/22/17 04:20 Plt Morphology Comment Normal (NORMAL) 05/22/17 04:20 RBC Morphology Normal (NORMAL) 05/22/17 04:20 ESR 87 MM/HOUR (0-20) H 05/23/17 05:16 Sodium 144 mmol/L (136-145) 05/24/17 05:19 Corrected Sodium TNP 05/24/17 05:19 Potassium 3.9 mmol/L (3.5-5.1) 05/24/17 05:19 Chloride 109 mmol/L (98-107) H 05/24/17 05:19 Carbon Dioxide 28.4 mmol/L (21-32) 05/24/17 05:19 BUN 8 mg/dL (7-18) 05/24/17 05:19 Creatinine 0.59 mg/dL (0.55-1.02) 05/24/17 05:19 Est GFR (MDRD) Af Amer > 60 (>60) 05/24/17 05:19 Est GFR (MDRD) Non-Af > 60 (>60) 05/24/17 05:19 Glucose 89 mg/dL (65-99) 05/24/17 05:19 Lactic Acid 1.0 mmol/L (0.4-2.0) 05/22/17 04:20 Calcium 8.2 mg/dL (8.5-10.1) L 05/24/17 05:19 Corrected Calcium 9.6 mg/dL (8.5-10.1) 05/24/17 05:19 Total Bilirubin 0.30 mg/dL (0.2-1.0) 05/24/17 05:19 AST 24 Units/L (15-37) 05/24/17 05:19 ALT 38 Units/L (12-78) 05/24/17 05:19 Alkaline Phosphatase 78 Units/L (46-116) 05/24/17 05:19 C-Reactive Protein 144.50 mg/L (0-3.0) H 05/23/17 05:16 Total Protein 6.0 g/dL (6.4-8.2) L 05/24/17 05:19 Albumin 2.3 g/dL (3.4-5.0) L 05/24/17 05:19 Globulin 3.7 g/dL (2.5-4.5) 05/24/17 05:19 Albumin/Globulin Ratio 0.6 Ratio (1.1-2.1) L 05/24/17 05:19 Specimen Type Catherized urine 05/22/17 14:21 Urine Color Yellow (YELLOW) 05/22/17 14:21 Urine Appearance Slightly hazy (CLEAR) 05/22/17 14:21 Urine pH 5.0 (5.0 - 8.0) 05/22/17 14:21 Ur Specific [place] 1.025 (1.000-1.030) 05/22/17 14:21 Urine Protein 2+ (NEGATIVE) 05/22/17 14:21 Urine Glucose (UA) Negative (NEGATIVE) 05/22/17 14:21 Urine Ketones Negative (NEGATIVE) 05/22/17 14:21 Urine Occult Blood Negative (NEGATIVE) 05/22/17 14:21 Urine Nitrite Negative (NEGATIVE) 05/22/17 14:21 Urine Bilirubin Negative (NEGATIVE) 05/22/17 14:21 Urine Urobilinogen Normal (NORMAL) 05/22/17 14:21 Ur Leukocyte Esterase 1+ (NEGATIVE) 05/22/17 14:21 Urine RBC 0-1 /HPF (NEGATIVE) 05/22/17 14:21 Urine WBC 0-2 /HPF (NEGATIVE) 05/22/17 14:21 Ur Squamous Epith Cells Rare /HPF (NEGATIVE) 05/22/17 14:21 Amorphous Sediment 1+ /HPF (NEGATIVE) 05/22/17 14:21 Urine Bacteria 1+ /HPF (NEGATIVE) 05/22/17 14:21 Hyaline Casts Few /LPF (NEGATIVE) 05/22/17 14:21 Ur Culture Indicated? No/not indicated 05/22/17 14:21 - Plan (1) RLL pneumonia Status: Acute Qualifiers: Pneumonia type: due to unspecified organism Qualified Code(s): J18.1 - Lobar pneumonia, unspecified organism Plan: pneumonia protocol, levaquin 750mg iv daily, continue respiratory tx, continue supplemental oxygen, continue to monitor (2) Constipation Status: Acute Qualifiers: Constipation type: slow transit constipation Qualified Code(s): K59.01 - Slow transit constipation Plan: continue miralax daily, colace and milk of magnesia prn, continue to monitor
--- NOTE | 2017-05-24 22:22 | PCM.PROG ---
Progress Note - Subjective Subjective: WAS ADMITTED FOR PNEUMONIA, COPD, AND FECAL IMPACTION. TODAY , SHE IS LYING IN BED WITH EYES CLOSED. SHE IS EASILY AROUSED TO VERBAL STIMULI. PATIENT CONTINUES WITH COUGH, AND INCREASED RESPIRATORY EFFORTS. ON EXAMINATION, HEART IS REGULAR IN RATE AND RHYTHM. SCATTERED WHEEZING AND RHONCHI NOTED THROUGHOUT ON AUSCULATION OF LUNG BECK. SHE IS CURRENTLY UTILIZING OXYGEN AT 2L/MIN. ABDOMEN IS DISTENDED AND CONTINUES WITH MILD TENDERNESS ON PALPATION. HYPOACTIVE BOWEL SOUNDS NOTED TO AUSCULTATION. EXTREMITIES ARE CONTRACTED. HER VITAL SIGNS THIS MORNING ARE 99.4-88-34-93%-111/ 69. ABNORMAL LAB VALUES INCLUDE THE FOLLOWING: RBC 3.18, HGB 10.2, HCT 30.2, CHLORIDE 109, CALCIUM 8.2, TOTAL PROTEIN 6.0, ALBUMIN 2.3, A/G RATIO 0.6. SPUTUM AND BLOOD CULTURES ARE PENDING. A KUB WAS OBTAINED THIS MORNING AND REPORTED PERSISTENT COLON DISTENTIN WITH SUGGESTION OF FECAL IMPACTION. THE POSSIBILITY OF DISTAL COLON OBSTRUCTION FROM SOME OTHER ETIOLOGY SHOULD BE CLINICALLY CONSIDERED AND EXCLUDED. SPEECH THERAPY HAS EVALUATED PATIENT AND RECOMMENDS THAT PATIENT BE KEPT NPO DUE TO HIGH RISK FOR ASPIRATION. WE ARE IN AGREEMENT. WE PLAN TO SPEAK WITH PATIENTS FAMILY REGARDING POSSIBLE PEG TUBE PLACEMENT DUE TO DYSPHAGIA AND RISK FOR ASPIRATION. TODAY, WE WILL ORDER FOR SOAP SUDS ENEMAS UNTIL CLEAR. WE WILL ALSO START PROCALAMINE AND ALBUMIN FOR PROTEIN DEFICIENCY. WE WILL CONTINUE WITH IV ANTIBIOTICS AND RESPIRATORY TREATMENTS. OTHERWISE, WE PLAN TO FOLLOW UP WITH AM LABS AND CHEST XRAY AND CONTINUE TO MONITOR PATIENT. - Past Medical Family Social History Past Med/Fam/Surg Hx: No changes since H&P Allergies: Allergies Penicillins Allergy (Verified 03/02/17 20:54) Sulfa (Sulfonamide Antibiotics) [SULFA] Allergy (Verified 03/02/17 20:54) - Review of Systems ROS: No change since H&P - Vital Signs and I&O's Vital Signs: Temperature 98.1 F Pulse Rate [Left Brachial] 98 Pulse Rate [Right Radial] 101 Pulse Rate 86 Respiratory Rate 32 Blood Pressure [Left Arm] 140/63 Blood Pressure [Right Arm] 122/69 Blood Pressure 130/83 O2 Sat by Pulse Oximetry 95 Intake and Output: Intake & Output 12/19/17 12/20/17 12/21/17 12/22/17 11:59 11:59 11:59 11:59 Intake Total 100 2340 1500 600 Output Total 652 625 150 Balance 100 5126 458 450 - Physical Exam Oriented: Unable to test Eyes: Normal Ear: Normal Nose: Other (nasal congestion ) Throat: Normal Respiratory: Right, Left, Generalized, Wheezes, Rhonchi Cardiovascular: Normal. negative: Murmur, Edema : Normal. negative: Dysuria, Hematuria, Frequency, Discharge, Testicular Pain , Bleeding, , Other Auscultation: Bowel Sounds: Normal Palpation: Normal Tenderness: Diffuse, Mild Skin: Normal. negative: Diaphoresis, Wound, Bruising, Ecchymosis Musculoskeletal: Normal Psychiatric: Normal Mood Description: Calm Affect: Normal Speech Pattern: Clear, Appropriate - Laboratory and Diagnostics Result Diagrams: 05/24/17 05:19 05/24/17 05:19 Labs: 05/22/17 06:20 Sputum - Expectorated Sputum Sputum Culture - Preliminary 05/22/17 06:20 Sputum - Expectorated Sputum - Final Laboratory WBC 6.7 X10^3/uL (3.6-10.0) 05/24/17 05:19 RBC 3.18 X10^6/uL (3.5-5.4) L 05/24/17 05:19 Hgb 10.2 g/dL (12.0-16.0) L 05/24/17 05:19 Hct 30.2 % (36.0-47.0) L 05/24/17 05:19 MCV 95.0 fL (80.0-100.0) 05/24/17 05:19 MCH 32.1 pg (27.0-34.0) 05/24/17 05:19 MCHC 33.8 g/dL (33.0-35.0) 05/24/17 05:19 RDW 14.2 % (11.6-16.5) 05/24/17 05:19 Plt Count 293 X10^3/uL (150.0-450.0) 05/24/17 05:19 Plt Count Comment Adequate (ADEQUATE) 05/22/17 04:20 MPV 7.7 fL (7.4-11.0) 05/24/17 05:19 Neut % 58.3 % (42.0-75.0) 05/24/17 05:19 Lymph % 16.9 % (21.0-51.0) L 05/24/17 05:19 [place] % 15.7 % (0.0-13.0) H 05/24/17 05:19 Eos % 8.6 % (0.9-2.9) H 05/24/17 05:19 Baso % 0.5 % (0.2-1.0) 05/24/17 05:19 Neut # 3.9 x10^3/uL (2.2-4.8) 05/24/17 05:19 Lymph # 1.1 X10^3/uL (1.3-2.9) L 05/24/17 05:19 [place] # 1.1 x10^3/uL (0.3-0.8) H 05/24/17 05:19 Eos # 0.6 x10^3/uL (0.0-0.2) H 05/24/17 05:19 Baso # 0.0 X10^3/uL (0.0-0.1) 05/24/17 05:19 Absolute Nucleated RBC 0.0 /100WBC 05/24/17 05:19 Total Counted 100 05/22/17 04:20 Neutrophils % (Manual) 42 % (39-76) 05/22/17 04:20 Band Neutrophils % 34 % (0-10) H 05/22/17 04:20 Lymphocytes % (Manual) 5 % (13-43) L 05/22/17 04:20 Monocytes % (Manual) 14 % (4-9) H 05/22/17 04:20 Eosinophils % (Manual) 3 % (0-6) 05/22/17 04:20 Metamyelocytes % 2 05/22/17 04:20 Plt Morphology Comment Normal (NORMAL) 05/22/17 04:20 RBC Morphology Normal (NORMAL) 05/22/17 04:20 ESR 87 MM/HOUR (0-20) H 05/23/17 05:16 Sodium 144 mmol/L (136-145) 05/24/17 05:19 Corrected Sodium TNP 05/24/17 05:19 Potassium 3.9 mmol/L (3.5-5.1) 05/24/17 05:19 Chloride 109 mmol/L (98-107) H 05/24/17 05:19 Carbon Dioxide 28.4 mmol/L (21-32) 05/24/17 05:19 BUN 8 mg/dL (7-18) 05/24/17 05:19 Creatinine 0.59 mg/dL (0.55-1.02) 05/24/17 05:19 Est GFR (MDRD) Af Amer > 60 (>60) 05/24/17 05:19 Est GFR (MDRD) Non-Af > 60 (>60) 05/24/17 05:19 Glucose 89 mg/dL (65-99) 05/24/17 05:19 Lactic Acid 1.0 mmol/L (0.4-2.0) 05/22/17 04:20 Calcium 8.2 mg/dL (8.5-10.1) L 05/24/17 05:19 Corrected Calcium 9.6 mg/dL (8.5-10.1) 05/24/17 05:19 Total Bilirubin 0.30 mg/dL (0.2-1.0) 05/24/17 05:19 AST 24 Units/L (15-37) 05/24/17 05:19 ALT 38 Units/L (12-78) 05/24/17 05:19 Alkaline Phosphatase 78 Units/L (46-116) 05/24/17 05:19 C-Reactive Protein 144.50 mg/L (0-3.0) H 05/23/17 05:16 Total Protein 6.0 g/dL (6.4-8.2) L 05/24/17 05:19 Albumin 2.3 g/dL (3.4-5.0) L 05/24/17 05:19 Globulin 3.7 g/dL (2.5-4.5) 05/24/17 05:19 Albumin/Globulin Ratio 0.6 Ratio (1.1-2.1) L 05/24/17 05:19 Specimen Type Catherized urine 05/22/17 14:21 Urine Color Yellow (YELLOW) 05/22/17 14:21 Urine Appearance Slightly hazy (CLEAR) 05/22/17 14:21 Urine pH 5.0 (5.0 - 8.0) 05/22/17 14:21 Ur Specific [place] 1.025 (1.000-1.030) 05/22/17 14:21 Urine Protein 2+ (NEGATIVE) 05/22/17 14:21 Urine Glucose (UA) Negative (NEGATIVE) 05/22/17 14:21 Urine Ketones Negative (NEGATIVE) 05/22/17 14:21 Urine Occult Blood Negative (NEGATIVE) 05/22/17 14:21 Urine Nitrite Negative (NEGATIVE) 05/22/17 14:21 Urine Bilirubin Negative (NEGATIVE) 05/22/17 14:21 Urine Urobilinogen Normal (NORMAL) 05/22/17 14:21 Ur Leukocyte Esterase 1+ (NEGATIVE) 05/22/17 14:21 Urine RBC 0-1 /HPF (NEGATIVE) 05/22/17 14:21 Urine WBC 0-2 /HPF (NEGATIVE) 05/22/17 14:21 Ur Squamous Epith Cells Rare /HPF (NEGATIVE) 05/22/17 14:21 Amorphous Sediment 1+ /HPF (NEGATIVE) 05/22/17 14:21 Urine Bacteria 1+ /HPF (NEGATIVE) 05/22/17 14:21 Hyaline Casts Few /LPF (NEGATIVE) 05/22/17 14:21 Ur Culture Indicated? No/not indicated 05/22/17 14:21 - Plan (1) RLL pneumonia Status: Acute Qualifiers: Pneumonia type: due to unspecified organism Qualified Code(s): J18.1 - Lobar pneumonia, unspecified organism Plan: pneumonia protocol, levaquin 750mg iv daily, continue respiratory tx, continue supplemental oxygen, continue to monitor (2) Constipation Status: Acute Qualifiers: Constipation type: slow transit constipation Qualified Code(s): K59.01 - Slow transit constipation Plan: soap suds enemas, continue to monitor (3) At risk for aspiration Status: Acute Plan: HOLD NPO, CONSULT WITH FAMILY FOR POSSIBLE PEG TUBE, CONTINUE TO MONITOR (4) Hypoproteinemia Status: Acute Plan: PROCALAMINE IV, ALBUMIN 25GM IV DAILY, CONTINUE TO MONITOR
[2017-05-25] MEDS: DUONEB 0.5 MG/3 MG NEB SCH ×6 (01:10→20:34)
[2017-05-25 06:09] LABS: BASOPHILS % (AUTO) 0.6 % (0.2-1.0); EOSINOPHILS # (AUTO) 0.4 x10^3/uL (0.0-0.2); EOSINOPHILS % (AUTO) 7.2 % (0.9-2.9); HEMATOCRIT 29.9 % (36.0-47.0); HEMOGLOBIN 10.1 g/dL (12.0-16.0); LYMPHOCYTES # (AUTO) 0.9 X10^3/uL (1.3-2.9); LYMPHOCYTES % (AUTO) 15.5 % (21.0-51.0); MEAN CORPUSCULAR HEMOGLOBIN 31.8 pg (27.0-34.0); MEAN CORPUSCULAR HGB CONC 33.9 g/dL (33.0-35.0); MEAN CORPUSCULAR VOLUME 93.8 fL (80.0-100.0); MEAN PLATELET VOLUME 7.2 fL (7.4-11.0); MONOCYTES # (AUTO) 0.7 x10^3/uL (0.3-0.8); MONOCYTES % (AUTO) 12.5 % (0.0-13.0); NEUTROPHILS # (AUTO) 3.6 x10^3/uL (2.2-4.8); NEUTROPHILS % (AUTO) 64.2 % (42.0-75.0); PLATELET COUNT 292 X10^3/uL (150.0-450.0); RED BLOOD COUNT 3.19 X10^6/uL (3.5-5.4); RED CELL DISTRIBUTION WIDTH 14.4 % (11.6-16.5); WHITE BLOOD COUNT 5.5 X10^3/uL (3.6-10.0)
[2017-05-25 06:13] LABS: ALANINE AMINOTRANSFERASE 30 Units/L (12-78); ALBUMIN 2.5 g/dL (3.4-5.0); ALKALINE PHOSPHATASE 68 Units/L (46-116); ASPARTATE AMINO TRANSFERASE 25 Units/L (15-37); BLOOD UREA NITROGEN 8 mg/dL (7-18); CALCIUM 8.1 mg/dL (8.5-10.1); CARBON DIOXIDE 25.9 mmol/L (21-32); CHLORIDE 107 mmol/L (98-107); COR CA(FOR HYPOALB) 9.3 mg/dL (8.5-10.1); SODIUM 141 mmol/L (136-145); eGFR BLACK RACES > 60 (>60); eGFR NON BLACK RACES > 60 (>60)
[2017-05-25] MEDS: K-DUR TAB 20 MEQ PO SCH ×2 (10:02→21:25)
[2017-05-25] MEDS: LEVAQUIN PREMIX IV 750 MG 750 MG/150 ML BAG IV SCH (10:15)
--- NOTE | 2017-05-25 10:23 | RAD ---
Examination: Portable AP chest History: SOB Comparison reference 05/24/2017. Findings: Persistent cardiac prominence and aortic ectasia. Slight improvement in the central pulmona ry vascular distention and interstitial fluid. There is a persistent retrocardiac density obscuring t he diaphragm, ppm consistent with airspace disease. Impression: Persistent cardiomegaly and left lower lobe opacity, with interval improvement in finding s of CHF. Reported By:
[2017-05-25] MEDS: NS 1000 ML 1,000 ML IV SCH ×2 (10:33→21:44)
[2017-05-25] MEDS: ALBUMIN HUMAN 25%- 100ML 100 ML IV SCH (10:33)
[2017-05-25] MEDS: MUCINEX EXPECTORANT PO SCH ×2 (10:34→21:26)
[2017-05-25] MEDS: MIRALAX POWDER (1 DOSE 17GM) PO SCH (10:34)
[2017-05-25] MEDS: ROBITUSSIN DM PO SCH ×4 (10:34→21:26)
[2017-05-25] MEDS: LASIX PO SCH (10:34)
[2017-05-25] MEDS: PEPCID TAB 20 MG PO SCH ×2 (10:34→21:26)
[2017-05-25] MEDS ORDERED: FLEET ENEMA ADULT PR ONE (10:47)
[2017-05-25] MEDS ORDERED: DIPRIVAN VIAL 10 ML ONE ×2 (11:47→12:29)
[2017-05-25] MEDS: PROCALAMINE 3 % 1,000 ML IV SCH (21:17)
[2017-05-25] MEDS: SINGULAIR TAB 10 MG PO SCH (21:26)
[2017-05-26] MEDS: DUONEB 0.5 MG/3 MG NEB SCH ×6 (00:36→20:56)
[2017-05-26 05:28] LABS: BASOPHILS % (AUTO) 0.7 % (0.2-1.0); EOSINOPHILS # (AUTO) 0.3 x10^3/uL (0.0-0.2); EOSINOPHILS % (AUTO) 6.1 % (0.9-2.9); HEMATOCRIT 29.9 % (36.0-47.0); HEMOGLOBIN 10.1 g/dL (12.0-16.0); LYMPHOCYTES # (AUTO) 0.9 X10^3/uL (1.3-2.9); LYMPHOCYTES % (AUTO) 21.5 % (21.0-51.0); MEAN CORPUSCULAR HEMOGLOBIN 31.7 pg (27.0-34.0); MEAN CORPUSCULAR HGB CONC 33.7 g/dL (33.0-35.0); MEAN PLATELET VOLUME 7.2 fL (7.4-11.0); MONOCYTES # (AUTO) 0.6 x10^3/uL (0.3-0.8); MONOCYTES % (AUTO) 12.7 % (0.0-13.0); NEUTROPHILS # (AUTO) 2.6 x10^3/uL (2.2-4.8); PLATELET COUNT 304 X10^3/uL (150.0-450.0); RED BLOOD COUNT 3.18 X10^6/uL (3.5-5.4); RED CELL DISTRIBUTION WIDTH 14.4 % (11.6-16.5); WHITE BLOOD COUNT 4.3 X10^3/uL (3.6-10.0)
[2017-05-26 05:47] LABS: ALANINE AMINOTRANSFERASE 27 Units/L (12-78); ALBUMIN 2.8 g/dL (3.4-5.0); ALKALINE PHOSPHATASE 61 Units/L (46-116); ASPARTATE AMINO TRANSFERASE 20 Units/L (15-37); BLOOD UREA NITROGEN 8 mg/dL (7-18); CARBON DIOXIDE 27.7 mmol/L (21-32); CHLORIDE 107 mmol/L (98-107); CREATININE 0.54 mg/dL (0.55-1.02); SODIUM 143 mmol/L (136-145); TOTAL PROTEIN 6.1 g/dL (6.4-8.2); eGFR BLACK RACES > 60 (>60); eGFR NON BLACK RACES > 60 (>60)
[2017-05-26] MEDS ORDERED: K-LYTE EFFERVESCENT PO PRN (06:29)
[2017-05-26] MEDS ORDERED: MAG-OX TAB PO PRN (06:29)
[2017-05-26] MEDS ORDERED: POTASSIUM CHL 60 MEQ/NS 0.45% 500 ML IV PRN (06:29)
[2017-05-26] MEDS ORDERED: MAGNESIUM SULFATE 1 GM/100 mL PREMIX 1 GM/100 ML BAG IV PRN (06:29)
[2017-05-26] MEDS ORDERED: POTASSIUM CHLORIDE LIQ 20 MEQ UDC PO PRN (06:29)
[2017-05-26] MEDS ORDERED: K-RIDER 10 MEQ/NS 100 ML 10 MEQ/100 ML BAG IV PRN (06:29)
[2017-05-26] MEDS ORDERED: POTASSIUM CHL 40 MEQ/NS 0.45% 500 ML IV PRN (06:29)
--- NOTE | 2017-05-26 07:10 | RAD ---
Indication: Shortness of breath . Exam: Portable chest Comparison: 05/25/2017. Findings: The heart is mildly enlarged but unchanged. The pulmonary vessels are less prominent centra lly . The lungs are hypoinflated with mild chronic elevation of the right hemidiaphragm . There are m ild subsegmental opacities along the lung bases which are less prominent. There is minimal blunting o f the costophrenic sulci which is decreased. Impression: Stable mild cardiomegaly with resolving central pulmonary congestion . Hypoinflation with slowly resolving bibasilar atelectasis or early infiltrates . Tiny bibasilar pleural effusions which are less prominent. Reported By:
--- NOTE | 2017-05-26 07:12 | RAD ---
Examination: Portable KUB History: Distention, bowel obstruction Comparison reference 05/24/2017 Findings: There is persistent marked gaseous dilatation of small and large bowel. The previously desc ribed fecal mass in the rectum is no longer seen. There is little gas noted in the rectum; soft tissu e density may represent distended urinary bladder. The retroperitoneal structures are obscured. No as cites or mass is seen. Impression: Persistent intestinal distention consistent with either reflex ileus or a distal colon obstruction. A pparent resolution of fecal impaction. Additional evaluation suggested to exclude a mechanical rectos igmoid obstruction. Reported By:
[2017-05-26] MEDS: LEVAQUIN PREMIX IV 750 MG 750 MG/150 ML BAG IV SCH (09:07)
[2017-05-26] MEDS: ALBUMIN HUMAN 25%- 100ML 100 ML IV SCH (09:08)
--- NOTE | 2017-05-26 11:02 | PCM.PROG ---
Progress Note - Progress Note for Day of Date: 05/26/17 - Subjective Subjective: WAS ADMITTED FOR PNEUMONIA, COPD, AND FECAL IMPACTION. TODAY , SHE IS LYING IN BED WITH EYES CLOSED. SHE IS EASILY AROUSED TO VERBAL STIMULI. PATIENT CONTINUES WITH COUGH, AND INCREASED RESPIRATORY EFFORTS. ON EXAMINATION, HEART IS REGULAR IN RATE AND RHYTHM. SCATTERED WHEEZING AND RHONCHI NOTED THROUGHOUT ON AUSCULATION OF LUNG BECK. SHE IS CURRENTLY UTILIZING OXYGEN AT 2L/MIN. ABDOMEN IS DISTENDED AND CONTINUES WITH MILD TENDERNESS ON PALPATION. HYPOACTIVE BOWEL SOUNDS NOTED TO AUSCULTATION. EXTREMITIES ARE CONTRACTED. HER VITAL SIGNS THIS MORNING ARE 99.4-88-34-93%-111/ 69. ABNORMAL LAB VALUES INCLUDE THE FOLLOWING: RBC 3.18, HGB 10.2, HCT 30.2, CHLORIDE 109, CALCIUM 8.2, TOTAL PROTEIN 6.0, ALBUMIN 2.3, A/G RATIO 0.6. SPUTUM AND BLOOD CULTURES ARE PENDING. A KUB WAS OBTAINED THIS MORNING AND REPORTED PERSISTENT COLON DISTENTIN WITH SUGGESTION OF FECAL IMPACTION. THE POSSIBILITY OF DISTAL COLON OBSTRUCTION FROM SOME OTHER ETIOLOGY SHOULD BE CLINICALLY CONSIDERED AND EXCLUDED. SPEECH THERAPY HAS EVALUATED PATIENT AND RECOMMENDS THAT PATIENT BE KEPT NPO DUE TO HIGH RISK FOR ASPIRATION. WE ARE IN AGREEMENT. WE PLAN TO SPEAK WITH PATIENTS FAMILY REGARDING POSSIBLE PEG TUBE PLACEMENT DUE TO DYSPHAGIA AND RISK FOR ASPIRATION. TODAY, WE WILL ORDER FOR SOAP SUDS ENEMAS UNTIL CLEAR. WE WILL ALSO START PROCALAMINE AND ALBUMIN FOR PROTEIN DEFICIENCY. WE WILL CONTINUE WITH IV ANTIBIOTICS AND RESPIRATORY TREATMENTS. OTHERWISE, WE PLAN TO FOLLOW UP WITH AM LABS AND CHEST XRAY AND CONTINUE TO MONITOR PATIENT. - Past Medical Family Social History Past Med/Fam/Surg Hx: No changes since H&P Allergies: Allergies Penicillins Allergy (Verified 03/02/17 20:54) Sulfa (Sulfonamide Antibiotics) [SULFA] Allergy (Verified 03/02/17 20:54) - Review of Systems ROS: No change since H&P - Vital Signs and I&O's Vital Signs: Temperature 99.8 F Pulse Rate [Left Brachial] 83 Pulse Rate [Right Radial] 90 Pulse Rate 80 Respiratory Rate 34 Blood Pressure [Left Arm] 129/67 Blood Pressure [Right Arm] 113/72 Blood Pressure 130/83 O2 Sat by Pulse Oximetry 94 Intake and Output: Intake & Output 05/23/17 05/24/17 05/25/17/23/17 11:59 11:59 11:59 11:59 Intake Total 2340 1500 1320 1450 Output Total 652 Balance 1688 456 300 -120 - Physical Exam Oriented: Unable to test Eyes: Normal Ear: Normal Nose: Other (nasal congestion ) Throat: Normal Respiratory: Right, Left, Generalized, Wheezes, Rhonchi Cardiovascular: Normal. negative: Murmur, Edema : Normal. negative: Dysuria, Hematuria, Frequency, Discharge, Testicular Pain , Bleeding, , Other Auscultation: Bowel Sounds: Normal Tenderness: Diffuse, Mild Skin: Normal. negative: Diaphoresis, Wound, Bruising, Ecchymosis Musculoskeletal: Normal Psychiatric: Normal Mood Description: Calm Affect: Normal Speech Pattern: Unclear, Inappropriate - Laboratory and Diagnostics Result Diagrams: 05/26/17 04:40 05/26/17 04:40 Labs: 05/22/17 04:20 Blood Blood Culture - Preliminary 05/22/17 03:30 Blood Blood Culture - Preliminary 05/22/17 06:20 Sputum - Expectorated Sputum Sputum Culture - Final Methicillin Resis Staph Aureus 05/22/17 06:20 Sputum - Expectorated Sputum - Final Laboratory WBC 4.3 X10^3/uL (3.6-10.0) 05/26/17 04:40 RBC 3.18 X10^6/uL (3.5-5.4) L 05/26/17 04:40 Hgb 10.1 g/dL (12.0-16.0) L 05/26/17 04:40 Hct 29.9 % (36.0-47.0) L 05/26/17 04:40 MCV 94.0 fL (80.0-100.0) 05/26/17 04:40 MCH 31.7 pg (27.0-34.0) 05/26/17 04:40 MCHC 33.7 g/dL (33.0-35.0) 05/26/17 04:40 RDW 14.4 % (11.6-16.5) 05/26/17 04:40 Plt Count 304 X10^3/uL (150.0-450.0) 05/26/17 04:40 Plt Count Comment Adequate (ADEQUATE) 05/22/17 04:20 MPV 7.2 fL (7.4-11.0) L 05/26/17 04:40 Neut % 59.0 % (42.0-75.0) 05/26/17 04:40 Lymph % 21.5 % (21.0-51.0) 05/26/17 04:40 [place] % 12.7 % (0.0-13.0) 05/26/17 04:40 Eos % 6.1 % (0.9-2.9) H 05/26/17 04:40 Baso % 0.7 % (0.2-1.0) 05/26/17 04:40 Neut # 2.6 x10^3/uL (2.2-4.8) 05/26/17 04:40 Lymph # 0.9 X10^3/uL (1.3-2.9) L 05/26/17 04:40 [place] # 0.6 x10^3/uL (0.3-0.8) 05/26/17 04:40 Eos # 0.3 x10^3/uL (0.0-0.2) H 05/26/17 04:40 Baso # 0.0 X10^3/uL (0.0-0.1) 05/26/17 04:40 Absolute Nucleated RBC 0.1 /100WBC 05/26/17 04:40 Total Counted 100 05/22/17 04:20 Neutrophils % (Manual) 42 % (39-76) 05/22/17 04:20 Band Neutrophils % 34 % (0-10) H 05/22/17 04:20 Lymphocytes % (Manual) 5 % (13-43) L 05/22/17 04:20 Monocytes % (Manual) 14 % (4-9) H 05/22/17 04:20 Eosinophils % (Manual) 3 % (0-6) 05/22/17 04:20 Metamyelocytes % 2 05/22/17 04:20 Plt Morphology Comment Normal (NORMAL) 05/22/17 04:20 RBC Morphology Normal (NORMAL) 05/22/17 04:20 ESR 87 MM/HOUR (0-20) H 05/23/17 05:16 INR Target Range - 05/25/17 10:40 INR 1.11 (0.8-1.3) 05/25/17 10:40 Sodium 143 mmol/L (136-145) 05/26/17 04:40 Corrected Sodium TNP 05/26/17 04:40 Potassium 3.4 mmol/L (3.5-5.1) L 05/26/17 04:40 Chloride 107 mmol/L (98-107) 05/26/17 04:40 Carbon Dioxide 27.7 mmol/L (21-32) 05/26/17 04:40 BUN 8 mg/dL (7-18) 05/26/17 04:40 Creatinine 0.54 mg/dL (0.55-1.02) L 05/26/17 04:40 Est GFR (MDRD) Af Amer > 60 (>60) 05/26/17 04:40 Est GFR (MDRD) Non-Af > 60 (>60) 05/26/17 04:40 Glucose 82 mg/dL (65-99) 05/26/17 04:40 Lactic Acid 1.0 mmol/L (0.4-2.0) 05/22/17 04:20 Calcium 8.0 mg/dL (8.5-10.1) L 05/26/17 04:40 Corrected Calcium 9.0 mg/dL (8.5-10.1) 05/26/17 04:40 Magnesium 2.3 mg/dL (1.7-2.9) 05/26/17 04:40 Total Bilirubin 0.20 mg/dL (0.2-1.0) 05/26/17 04:40 AST 20 Units/L (15-37) 05/26/17 04:40 ALT 27 Units/L (12-78) 05/26/17 04:40 Alkaline Phosphatase 61 Units/L (46-116) 05/26/17 04:40 C-Reactive Protein 144.50 mg/L (0-3.0) H 05/23/17 05:16 Total Protein 6.1 g/dL (6.4-8.2) L 05/26/17 04:40 Albumin 2.8 g/dL (3.4-5.0) L 05/26/17 04:40 Globulin 3.3 g/dL (2.5-4.5) 05/26/17 04:40 Albumin/Globulin Ratio 0.8 Ratio (1.1-2.1) L 05/26/17 04:40 Specimen Type Catherized urine 05/22/17 14:21 Urine Color Yellow (YELLOW) 05/22/17 14:21 Urine Appearance Slightly hazy (CLEAR) 05/22/17 14:21 Urine pH 5.0 (5.0 - 8.0) 05/22/17 14:21 Ur Specific [place] 1.025 (1.000-1.030) 05/22/17 14:21 Urine Protein 2+ (NEGATIVE) 05/22/17 14:21 Urine Glucose (UA) Negative (NEGATIVE) 05/22/17 14:21 Urine Ketones Negative (NEGATIVE) 05/22/17 14:21 Urine Occult Blood Negative (NEGATIVE) 05/22/17 14:21 Urine Nitrite Negative (NEGATIVE) 05/22/17 14:21 Urine Bilirubin Negative (NEGATIVE) 05/22/17 14:21 Urine Urobilinogen Normal (NORMAL) 05/22/17 14:21 Ur Leukocyte Esterase 1+ (NEGATIVE) 05/22/17 14:21 Urine RBC 0-1 /HPF (NEGATIVE) 05/22/17 14:21 Urine WBC 0-2 /HPF (NEGATIVE) 05/22/17 14:21 Ur Squamous Epith Cells Rare /HPF (NEGATIVE) 05/22/17 14:21 Amorphous Sediment 1+ /HPF (NEGATIVE) 05/22/17 14:21 Urine Bacteria 1+ /HPF (NEGATIVE) 05/22/17 14:21 Hyaline Casts Few /LPF (NEGATIVE) 05/22/17 14:21 Ur Culture Indicated? No/not indicated 05/22/17 14:21 - Plan (1) Ileus Status: Acute
--- NOTE | 2017-05-26 12:58 | PCM.PROG ---
Progress Note - Progress Note for Day of Date: 05/26/17 (c/o moderate abdominal pain ..no nausea or vomiting ..had large BM with the enema ) - Subjective Subjective: WAS ADMITTED FOR PNEUMONIA, COPD, AND FECAL IMPACTION. TODAY , SHE IS LYING IN BED WITH EYES CLOSED. SHE IS EASILY AROUSED TO VERBAL STIMULI. PATIENT CONTINUES WITH COUGH, AND INCREASED RESPIRATORY EFFORTS. ON EXAMINATION, HEART IS REGULAR IN RATE AND RHYTHM. SCATTERED WHEEZING AND RHONCHI NOTED THROUGHOUT ON AUSCULATION OF LUNG BECK. SHE IS CURRENTLY UTILIZING OXYGEN AT 2L/MIN. ABDOMEN IS DISTENDED AND CONTINUES WITH MILD TENDERNESS ON PALPATION. HYPOACTIVE BOWEL SOUNDS NOTED TO AUSCULTATION. EXTREMITIES ARE CONTRACTED. HER VITAL SIGNS THIS MORNING ARE 99.4-88-34-93%-111/ 69. ABNORMAL LAB VALUES INCLUDE THE FOLLOWING: RBC 3.18, HGB 10.2, HCT 30.2, CHLORIDE 109, CALCIUM 8.2, TOTAL PROTEIN 6.0, ALBUMIN 2.3, A/G RATIO 0.6. SPUTUM AND BLOOD CULTURES ARE PENDING. A KUB WAS OBTAINED THIS MORNING AND REPORTED PERSISTENT COLON DISTENTIN WITH SUGGESTION OF FECAL IMPACTION. THE POSSIBILITY OF DISTAL COLON OBSTRUCTION FROM SOME OTHER ETIOLOGY SHOULD BE CLINICALLY CONSIDERED AND EXCLUDED. SPEECH THERAPY HAS EVALUATED PATIENT AND RECOMMENDS THAT PATIENT BE KEPT NPO DUE TO HIGH RISK FOR ASPIRATION. WE ARE IN AGREEMENT. WE PLAN TO SPEAK WITH PATIENTS FAMILY REGARDING POSSIBLE PEG TUBE PLACEMENT DUE TO DYSPHAGIA AND RISK FOR ASPIRATION. TODAY, WE WILL ORDER FOR SOAP SUDS ENEMAS UNTIL CLEAR. WE WILL ALSO START PROCALAMINE AND ALBUMIN FOR PROTEIN DEFICIENCY. WE WILL CONTINUE WITH IV ANTIBIOTICS AND RESPIRATORY TREATMENTS. OTHERWISE, WE PLAN TO FOLLOW UP WITH AM LABS AND CHEST XRAY AND CONTINUE TO MONITOR PATIENT. - Past Medical Family Social History Past Med/Fam/Surg Hx: No changes since H&P Allergies: Allergies Penicillins Allergy (Verified 03/02/17 20:54) Sulfa (Sulfonamide Antibiotics) [SULFA] Allergy (Verified 03/02/17 20:54) - Review of Systems ROS: No change since H&P - Vital Signs and I&O's Vital Signs: Temperature 99.8 F Pulse Rate [Left Brachial] 83 Pulse Rate [Right Radial] 90 Pulse Rate 80 Respiratory Rate 34 Blood Pressure [Left Arm] 129/67 Blood Pressure [Right Arm] 113/72 Blood Pressure 130/83 O2 Sat by Pulse Oximetry 94 Intake and Output: Intake & Output 05/24/17 05/25/17 05/26/17 05/27/17 11:59 11:59 11:59 11:59 Intake Total 1500 1320 1450 Output Total 790 995 8833 Balance 875 570 -775 - Physical Exam Oriented: Unable to test Eyes: Normal Ear: Normal Nose: Other (nasal congestion ) Throat: Normal Respiratory: Right, Left, Generalized, Wheezes, Rhonchi Cardiovascular: Normal. negative: Murmur, Edema : Normal. negative: Dysuria, Hematuria, Frequency, Discharge, Testicular Pain , Bleeding, , Other Auscultation: Bowel Sounds: Increased Tenderness: Diffuse, RUQ, LUQ, Epigastric, Mild Skin: Normal. negative: Diaphoresis, Wound, Bruising, Ecchymosis Musculoskeletal: Normal Psychiatric: Normal Mood Description: Calm Affect: Normal Speech Pattern: Unclear, Inappropriate - Laboratory and Diagnostics Result Diagrams: 05/26/17 04:40 05/26/17 04:40 Labs: 05/22/17 04:20 Blood Blood Culture - Preliminary 05/22/17 03:30 Blood Blood Culture - Preliminary 05/22/17 06:20 Sputum - Expectorated Sputum Sputum Culture - Final Methicillin Resis Staph Aureus 05/22/17 06:20 Sputum - Expectorated Sputum - Final Laboratory WBC 4.3 X10^3/uL (3.6-10.0) 05/26/17 04:40 RBC 3.18 X10^6/uL (3.5-5.4) L 05/26/17 04:40 Hgb 10.1 g/dL (12.0-16.0) L 05/26/17 04:40 Hct 29.9 % (36.0-47.0) L 05/26/17 04:40 MCV 94.0 fL (80.0-100.0) 05/26/17 04:40 MCH 31.7 pg (27.0-34.0) 05/26/17 04:40 MCHC 33.7 g/dL (33.0-35.0) 05/26/17 04:40 RDW 14.4 % (11.6-16.5) 05/26/17 04:40 Plt Count 304 X10^3/uL (150.0-450.0) 05/26/17 04:40 Plt Count Comment Adequate (ADEQUATE) 05/22/17 04:20 MPV 7.2 fL (7.4-11.0) L 05/26/17 04:40 Neut % 59.0 % (42.0-75.0) 05/26/17 04:40 Lymph % 21.5 % (21.0-51.0) 05/26/17 04:40 [place] % 12.7 % (0.0-13.0) 05/26/17 04:40 Eos % 6.1 % (0.9-2.9) H 05/26/17 04:40 Baso % 0.7 % (0.2-1.0) 05/26/17 04:40 Neut # 2.6 x10^3/uL (2.2-4.8) 05/26/17 04:40 Lymph # 0.9 X10^3/uL (1.3-2.9) L 05/26/17 04:40 [place] # 0.6 x10^3/uL (0.3-0.8) 05/26/17 04:40 Eos # 0.3 x10^3/uL (0.0-0.2) H 05/26/17 04:40 Baso # 0.0 X10^3/uL (0.0-0.1) 05/26/17 04:40 Absolute Nucleated RBC 0.1 /100WBC 05/26/17 04:40 Total Counted 100 05/22/17 04:20 Neutrophils % (Manual) 42 % (39-76) 05/22/17 04:20 Band Neutrophils % 34 % (0-10) H 05/22/17 04:20 Lymphocytes % (Manual) 5 % (13-43) L 05/22/17 04:20 Monocytes % (Manual) 14 % (4-9) H 05/22/17 04:20 Eosinophils % (Manual) 3 % (0-6) 05/22/17 04:20 Metamyelocytes % 2 05/22/17 04:20 Plt Morphology Comment Normal (NORMAL) 05/22/17 04:20 RBC Morphology Normal (NORMAL) 05/22/17 04:20 ESR 87 MM/HOUR (0-20) H 05/23/17 05:16 INR Target Range - 05/25/17 10:40 INR 1.11 (0.8-1.3) 05/25/17 10:40 Sodium 143 mmol/L (136-145) 05/26/17 04:40 Corrected Sodium TNP 05/26/17 04:40 Potassium 3.4 mmol/L (3.5-5.1) L 05/26/17 04:40 Chloride 107 mmol/L (98-107) 05/26/17 04:40 Carbon Dioxide 27.7 mmol/L (21-32) 05/26/17 04:40 BUN 8 mg/dL (7-18) 05/26/17 04:40 Creatinine 0.54 mg/dL (0.55-1.02) L 05/26/17 04:40 Est GFR (MDRD) Af Amer > 60 (>60) 05/26/17 04:40 Est GFR (MDRD) Non-Af > 60 (>60) 05/26/17 04:40 Glucose 82 mg/dL (65-99) 05/26/17 04:40 Lactic Acid 1.0 mmol/L (0.4-2.0) 05/22/17 04:20 Calcium 8.0 mg/dL (8.5-10.1) L 05/26/17 04:40 Corrected Calcium 9.0 mg/dL (8.5-10.1) 05/26/17 04:40 Magnesium 2.3 mg/dL (1.7-2.9) 05/26/17 04:40 Total Bilirubin 0.20 mg/dL (0.2-1.0) 05/26/17 04:40 AST 20 Units/L (15-37) 05/26/17 04:40 ALT 27 Units/L (12-78) 05/26/17 04:40 Alkaline Phosphatase 61 Units/L (46-116) 05/26/17 04:40 C-Reactive Protein 144.50 mg/L (0-3.0) H 05/23/17 05:16 Total Protein 6.1 g/dL (6.4-8.2) L 05/26/17 04:40 Albumin 2.8 g/dL (3.4-5.0) L 05/26/17 04:40 Globulin 3.3 g/dL (2.5-4.5) 05/26/17 04:40 Albumin/Globulin Ratio 0.8 Ratio (1.1-2.1) L 05/26/17 04:40 Specimen Type Catherized urine 05/22/17 14:21 Urine Color Yellow (YELLOW) 05/22/17 14:21 Urine Appearance Slightly hazy (CLEAR) 05/22/17 14:21 Urine pH 5.0 (5.0 - 8.0) 05/22/17 14:21 Ur Specific [place] 1.025 (1.000-1.030) 05/22/17 14:21 Urine Protein 2+ (NEGATIVE) 05/22/17 14:21 Urine Glucose (UA) Negative (NEGATIVE) 05/22/17 14:21 Urine Ketones Negative (NEGATIVE) 05/22/17 14:21 Urine Occult Blood Negative (NEGATIVE) 05/22/17 14:21 Urine Nitrite Negative (NEGATIVE) 05/22/17 14:21 Urine Bilirubin Negative (NEGATIVE) 05/22/17 14:21 Urine Urobilinogen Normal (NORMAL) 05/22/17 14:21 Ur Leukocyte Esterase 1+ (NEGATIVE) 05/22/17 14:21 Urine RBC 0-1 /HPF (NEGATIVE) 05/22/17 14:21 Urine WBC 0-2 /HPF (NEGATIVE) 05/22/17 14:21 Ur Squamous Epith Cells Rare /HPF (NEGATIVE) 05/22/17 14:21 Amorphous Sediment 1+ /HPF (NEGATIVE) 05/22/17 14:21 Urine Bacteria 1+ /HPF (NEGATIVE) 05/22/17 14:21 Hyaline Casts Few /LPF (NEGATIVE) 05/22/17 14:21 Ur Culture Indicated? No/not indicated 05/22/17 14:21 Radiology Reviewed: Yes - Plan (1) Ileus Status: Acute (2) At risk for aspiration Status: Acute Plan: HOLD NPO, CONSULT WITH FAMILY FOR POSSIBLE PEG TUBE, CONTINUE TO MONITOR (3) Constipation Status: Acute Qualifiers: Constipation type: slow transit constipation Qualified Code(s): K59.01 - Slow transit constipation Plan: soap suds enemas, continue to monitor (4) RLL pneumonia Status: Acute Qualifiers: Pneumonia type: due to unspecified organism Qualified Code(s): J18.1 - Lobar pneumonia, unspecified organism Plan: pneumonia protocol, levaquin 750mg iv daily, continue respiratory tx, continue supplemental oxygen, continue to monitor (5) COPD (chronic obstructive pulmonary disease) Status: Chronic Qualifiers: COPD type: unspecified COPD Qualified Code(s): J44.9 - Chronic obstructive pulmonary disease, unspecified (6) GERD (gastroesophageal reflux disease) Status: Acute Qualifiers: Esophagitis presence: esophagitis presence not specified Qualified Code(s) : K21.9 - Gastro-esophageal reflux disease without esophagitis
--- NOTE | 2017-05-26 13:13 | PCM.PROG ---
Progress Note - Subjective Subjective: WAS ADMITTED FOR PNEUMONIA, COPD, AND FECAL IMPACTION. TODAY , SHE IS LYING IN BED WITH EYES CLOSED. SHE IS EASILY AROUSED TO VERBAL STIMULI. PATIENT CONTINUES WITH COUGH, AND INCREASED RESPIRATORY EFFORTS. ON EXAMINATION, HEART IS REGULAR IN RATE AND RHYTHM. SCATTERED WHEEZING AND RHONCHI NOTED THROUGHOUT ON AUSCULATION OF LUNG BECK. SHE IS CURRENTLY UTILIZING OXYGEN AT 2L/MIN. ABDOMEN IS DISTENDED AND CONTINUES WITH MILD TENDERNESS ON PALPATION. HYPOACTIVE BOWEL SOUNDS NOTED TO AUSCULTATION. EXTREMITIES ARE CONTRACTED. HER VITAL SIGNS THIS MORNING ARE 99.4-88-34-93%-111/ 69. ABNORMAL LAB VALUES INCLUDE THE FOLLOWING: RBC 3.18, HGB 10.2, HCT 30.2, CHLORIDE 109, CALCIUM 8.2, TOTAL PROTEIN 6.0, ALBUMIN 2.3, A/G RATIO 0.6. SPUTUM AND BLOOD CULTURES ARE PENDING. A KUB WAS OBTAINED THIS MORNING AND REPORTED PERSISTENT COLON DISTENTIN WITH SUGGESTION OF FECAL IMPACTION. THE POSSIBILITY OF DISTAL COLON OBSTRUCTION FROM SOME OTHER ETIOLOGY SHOULD BE CLINICALLY CONSIDERED AND EXCLUDED. SPEECH THERAPY HAS EVALUATED PATIENT AND RECOMMENDS THAT PATIENT BE KEPT NPO DUE TO HIGH RISK FOR ASPIRATION. WE ARE IN AGREEMENT. WE PLAN TO SPEAK WITH PATIENTS FAMILY REGARDING POSSIBLE PEG TUBE PLACEMENT DUE TO DYSPHAGIA AND RISK FOR ASPIRATION. TODAY, WE WILL ORDER FOR SOAP SUDS ENEMAS UNTIL CLEAR. WE WILL ALSO START PROCALAMINE AND ALBUMIN FOR PROTEIN DEFICIENCY. WE WILL CONTINUE WITH IV ANTIBIOTICS AND RESPIRATORY TREATMENTS. OTHERWISE, WE PLAN TO FOLLOW UP WITH AM LABS AND CHEST XRAY AND CONTINUE TO MONITOR PATIENT. - Past Medical Family Social History Past Med/Fam/Surg Hx: No changes since H&P Allergies: Allergies Penicillins Allergy (Verified 03/02/17 20:54) Sulfa (Sulfonamide Antibiotics) [SULFA] Allergy (Verified 03/02/17 20:54) - Review of Systems ROS: No change since H&P - Vital Signs and I&O's Vital Signs: Temperature 99.8 F Pulse Rate [Left Brachial] 83 Pulse Rate [Right Radial] 90 Pulse Rate 80 Respiratory Rate 34 Blood Pressure [Left Arm] 129/67 Blood Pressure [Right Arm] 113/72 Blood Pressure 130/83 O2 Sat by Pulse Oximetry 94 Intake and Output: Intake & Output 12/21/17 12/22/17 12/23/17 12/24/17 11:59 11:59 11:59 11:59 Intake Total 1500 1320 1450 Output Total 275 707 4736 Balance 874 570 -845 - Physical Exam Oriented: Unable to test Eyes: Normal Ear: Normal Nose: Other (nasal congestion ) Throat: Normal Respiratory: Right, Left, Generalized, Wheezes, Rhonchi Cardiovascular: Normal. negative: Murmur, Edema : Normal. negative: Dysuria, Hematuria, Frequency, Discharge, Testicular Pain , Bleeding, , Other Auscultation: Bowel Sounds: Increased Tenderness: Diffuse, RUQ, LUQ, Epigastric, Mild Skin: Normal. negative: Diaphoresis, Wound, Bruising, Ecchymosis Musculoskeletal: Normal Psychiatric: Normal Mood Description: Calm Affect: Normal Speech Pattern: Unclear, Inappropriate - Laboratory and Diagnostics Result Diagrams: 05/26/17 04:40 05/26/17 04:40 Labs: 05/22/17 04:20 Blood Blood Culture - Preliminary 05/22/17 03:30 Blood Blood Culture - Preliminary 05/22/17 06:20 Sputum - Expectorated Sputum Sputum Culture - Final Methicillin Resis Staph Aureus 05/22/17 06:20 Sputum - Expectorated Sputum - Final Laboratory WBC 4.3 X10^3/uL (3.6-10.0) 05/26/17 04:40 RBC 3.18 X10^6/uL (3.5-5.4) L 05/26/17 04:40 Hgb 10.1 g/dL (12.0-16.0) L 05/26/17 04:40 Hct 29.9 % (36.0-47.0) L 05/26/17 04:40 MCV 94.0 fL (80.0-100.0) 05/26/17 04:40 MCH 31.7 pg (27.0-34.0) 05/26/17 04:40 MCHC 33.7 g/dL (33.0-35.0) 05/26/17 04:40 RDW 14.4 % (11.6-16.5) 05/26/17 04:40 Plt Count 304 X10^3/uL (150.0-450.0) 05/26/17 04:40 Plt Count Comment Adequate (ADEQUATE) 05/22/17 04:20 MPV 7.2 fL (7.4-11.0) L 05/26/17 04:40 Neut % 59.0 % (42.0-75.0) 05/26/17 04:40 Lymph % 21.5 % (21.0-51.0) 05/26/17 04:40 [place] % 12.7 % (0.0-13.0) 05/26/17 04:40 Eos % 6.1 % (0.9-2.9) H 05/26/17 04:40 Baso % 0.7 % (0.2-1.0) 05/26/17 04:40 Neut # 2.6 x10^3/uL (2.2-4.8) 05/26/17 04:40 Lymph # 0.9 X10^3/uL (1.3-2.9) L 05/26/17 04:40 [place] # 0.6 x10^3/uL (0.3-0.8) 05/26/17 04:40 Eos # 0.3 x10^3/uL (0.0-0.2) H 05/26/17 04:40 Baso # 0.0 X10^3/uL (0.0-0.1) 05/26/17 04:40 Absolute Nucleated RBC 0.1 /100WBC 05/26/17 04:40 Total Counted 100 05/22/17 04:20 Neutrophils % (Manual) 42 % (39-76) 05/22/17 04:20 Band Neutrophils % 34 % (0-10) H 05/22/17 04:20 Lymphocytes % (Manual) 5 % (13-43) L 05/22/17 04:20 Monocytes % (Manual) 14 % (4-9) H 05/22/17 04:20 Eosinophils % (Manual) 3 % (0-6) 05/22/17 04:20 Metamyelocytes % 2 05/22/17 04:20 Plt Morphology Comment Normal (NORMAL) 05/22/17 04:20 RBC Morphology Normal (NORMAL) 05/22/17 04:20 ESR 87 MM/HOUR (0-20) H 05/23/17 05:16 INR Target Range - 05/25/17 10:40 INR 1.11 (0.8-1.3) 05/25/17 10:40 Sodium 143 mmol/L (136-145) 05/26/17 04:40 Corrected Sodium TNP 05/26/17 04:40 Potassium 3.4 mmol/L (3.5-5.1) L 05/26/17 04:40 Chloride 107 mmol/L (98-107) 05/26/17 04:40 Carbon Dioxide 27.7 mmol/L (21-32) 05/26/17 04:40 BUN 8 mg/dL (7-18) 05/26/17 04:40 Creatinine 0.54 mg/dL (0.55-1.02) L 05/26/17 04:40 Est GFR (MDRD) Af Amer > 60 (>60) 05/26/17 04:40 Est GFR (MDRD) Non-Af > 60 (>60) 05/26/17 04:40 Glucose 82 mg/dL (65-99) 05/26/17 04:40 Lactic Acid 1.0 mmol/L (0.4-2.0) 05/22/17 04:20 Calcium 8.0 mg/dL (8.5-10.1) L 05/26/17 04:40 Corrected Calcium 9.0 mg/dL (8.5-10.1) 05/26/17 04:40 Magnesium 2.3 mg/dL (1.7-2.9) 05/26/17 04:40 Total Bilirubin 0.20 mg/dL (0.2-1.0) 05/26/17 04:40 AST 20 Units/L (15-37) 05/26/17 04:40 ALT 27 Units/L (12-78) 05/26/17 04:40 Alkaline Phosphatase 61 Units/L (46-116) 05/26/17 04:40 C-Reactive Protein 144.50 mg/L (0-3.0) H 05/23/17 05:16 Total Protein 6.1 g/dL (6.4-8.2) L 05/26/17 04:40 Albumin 2.8 g/dL (3.4-5.0) L 05/26/17 04:40 Globulin 3.3 g/dL (2.5-4.5) 05/26/17 04:40 Albumin/Globulin Ratio 0.8 Ratio (1.1-2.1) L 05/26/17 04:40 Specimen Type Catherized urine 05/22/17 14:21 Urine Color Yellow (YELLOW) 05/22/17 14:21 Urine Appearance Slightly hazy (CLEAR) 05/22/17 14:21 Urine pH 5.0 (5.0 - 8.0) 05/22/17 14:21 Ur Specific Tutor Key 1.025 (1.000-1.030) 05/22/17 14:21 Urine Protein 2+ (NEGATIVE) 05/22/17 14:21 Urine Glucose (UA) Negative (NEGATIVE) 05/22/17 14:21 Urine Ketones Negative (NEGATIVE) 05/22/17 14:21 Urine Occult Blood Negative (NEGATIVE) 05/22/17 14:21 Urine Nitrite Negative (NEGATIVE) 05/22/17 14:21 Urine Bilirubin Negative (NEGATIVE) 05/22/17 14:21 Urine Urobilinogen Normal (NORMAL) 05/22/17 14:21 Ur Leukocyte Esterase 1+ (NEGATIVE) 05/22/17 14:21 Urine RBC 0-1 /HPF (NEGATIVE) 05/22/17 14:21 Urine WBC 0-2 /HPF (NEGATIVE) 05/22/17 14:21 Ur Squamous Epith Cells Rare /HPF (NEGATIVE) 05/22/17 14:21 Amorphous Sediment 1+ /HPF (NEGATIVE) 05/22/17 14:21 Urine Bacteria 1+ /HPF (NEGATIVE) 05/22/17 14:21 Hyaline Casts Few /LPF (NEGATIVE) 05/22/17 14:21 Ur Culture Indicated? No/not indicated 05/22/17 14:21 - Plan (1) Ileus Status: Acute (2) At risk for aspiration Status: Acute Plan: HOLD NPO, CONSULT WITH FAMILY FOR POSSIBLE PEG TUBE, CONTINUE TO MONITOR (3) Constipation Status: Acute Qualifiers: Constipation type: slow transit constipation Qualified Code(s): K59.01 - Slow transit constipation Plan: soap suds enemas, continue to monitor (4) RLL pneumonia Status: Acute Qualifiers: Pneumonia type: due to unspecified organism Qualified Code(s): J18.1 - Lobar pneumonia, unspecified organism Plan: pneumonia protocol, levaquin 750mg iv daily, continue respiratory tx, continue supplemental oxygen, continue to monitor (5) COPD (chronic obstructive pulmonary disease) Status: Chronic Qualifiers: COPD type: unspecified COPD Qualified Code(s): J44.9 - Chronic obstructive pulmonary disease, unspecified (6) GERD (gastroesophageal reflux disease) Status: Acute Qualifiers: Esophagitis presence: esophagitis presence not specified Qualified Code(s) : K21.9 - Gastro-esophageal reflux disease without esophagitis
[2017-05-26] MEDS: ROBITUSSIN DM PO SCH ×4 (13:30→20:41)
[2017-05-26] MEDS: K-DUR TAB 20 MEQ PO SCH ×2 (14:45→20:41)
[2017-05-26] MEDS: LASIX PO SCH (14:45)
[2017-05-26] MEDS: MIRALAX POWDER (1 DOSE 17GM) PO SCH (14:45)
[2017-05-26] MEDS: MUCINEX EXPECTORANT PO SCH ×2 (14:46→20:41)
[2017-05-26] MEDS: PEPCID TAB 20 MG PO SCH ×2 (14:46→20:41)
[2017-05-26] MEDS: SINGULAIR TAB 10 MG PO SCH (20:41)
[2017-05-26] MEDS: PROCALAMINE 3 % 1,000 ML IV SCH (21:49)
[2017-05-27] MEDS: DUONEB 0.5 MG/3 MG NEB SCH ×6 (01:11→20:51)
[2017-05-27] MEDS: NS 1000 ML 1,000 ML IV SCH (05:45)
[2017-05-27 06:23] LABS: BASOPHILS % (AUTO) 0.4 % (0.2-1.0); EOSINOPHILS # (AUTO) 0.3 x10^3/uL (0.0-0.2); EOSINOPHILS % (AUTO) 6.4 % (0.9-2.9); HEMATOCRIT 31.4 % (36.0-47.0); HEMOGLOBIN 10.7 g/dL (12.0-16.0); LYMPHOCYTES # (AUTO) 0.9 X10^3/uL (1.3-2.9); MEAN PLATELET VOLUME 7.2 fL (7.4-11.0); MONOCYTES # (AUTO) 0.6 x10^3/uL (0.3-0.8); NEUTROPHILS # (AUTO) 2.9 x10^3/uL (2.2-4.8); NEUTROPHILS % (AUTO) 61.2 % (42.0-75.0); PLATELET COUNT 339 X10^3/uL (150.0-450.0); RED BLOOD COUNT 3.34 X10^6/uL (3.5-5.4); RED CELL DISTRIBUTION WIDTH 14.3 % (11.6-16.5); WHITE BLOOD COUNT 4.7 X10^3/uL (3.6-10.0)
[2017-05-27 06:46] LABS: ALANINE AMINOTRANSFERASE 39 Units/L (12-78); ALBUMIN 3.3 g/dL (3.4-5.0); ALKALINE PHOSPHATASE 62 Units/L (46-116); ASPARTATE AMINO TRANSFERASE 45 Units/L (15-37); BLOOD UREA NITROGEN 7 mg/dL (7-18); CALCIUM 8.5 mg/dL (8.5-10.1); CARBON DIOXIDE 26.5 mmol/L (21-32); CHLORIDE 106 mmol/L (98-107); COR CA(FOR HYPOALB) 9.1 mg/dL (8.5-10.1); CREATININE 0.58 mg/dL (0.55-1.02); SODIUM 141 mmol/L (136-145); TOTAL PROTEIN 6.6 g/dL (6.4-8.2); eGFR BLACK RACES > 60 (>60); eGFR NON BLACK RACES > 60 (>60)
--- NOTE | 2017-05-27 08:43 | RAD ---
Examination: KUB History: Follow-up, ileus Comparison reference 05/26/2017 Findings: There is persistent marked gaseous distention of small and large bowel. There is one especi ally dilated segment of bowel in the left lower quadrant measuring 11 0.0 cm in diameter. No gas is i dentified in the rectum. Impression: Persistent intestinal distention. A specific dilated loop in the left lower quadrant may reflect sigmoid volvulus. Sigmoidoscopy or barium enema recommended to exclude. Reported By:
[2017-05-27] MEDS: MUCINEX EXPECTORANT PO SCH ×2 (09:19→20:37)
[2017-05-27] MEDS: K-DUR TAB 20 MEQ PO SCH ×2 (09:19→20:37)
[2017-05-27] MEDS: LASIX PO SCH (09:19)
[2017-05-27] MEDS: PEPCID TAB 20 MG PO SCH ×2 (09:19→20:37)
[2017-05-27] MEDS: MIRALAX POWDER (1 DOSE 17GM) PO SCH (09:19)
[2017-05-27] MEDS: ALBUMIN HUMAN 25%- 100ML 100 ML IV SCH (09:19)
[2017-05-27] MEDS: ROBITUSSIN DM PO SCH ×4 (09:20→20:38)
[2017-05-27] MEDS: LEVAQUIN PREMIX IV 750 MG 750 MG/150 ML BAG IV SCH (09:21)
--- NOTE | 2017-05-27 14:03 | RAD ---
Examination: AP chest History: SOB Comparison reference 05/26/2017 Findings: Continued cardiomegaly and pulmonary congestion. Suspect fibrosis or atelectasis in the bas e these; detail is limited by nonstandard projection and motion artifact. There is no evidence for l arge pleural effusion or pneumothorax. Impression: No definite acute abnormality, see above technical reservations. Reported By:
[2017-05-27] MEDS ORDERED: KETALAR ONE (14:50)
[2017-05-27] MEDS ORDERED: DIPRIVAN VIAL 10 ML ONE (14:55)
--- NOTE | 2017-05-27 19:31 | RAD ---
Abdomen radiograph-two views Indication: Bowel obstruction Findings: Study is severely motion in position limited. Distended loops of bowel are noted. This is s imilar to the prior. No massive free air seen, though this is difficult to exclude. Impression: Markedly distended loops of bowel, similar to the prior radiograph. Significant obstructi on cannot be excluded. Study is significantly limited. Reported By:
[2017-05-27] MEDS: PROCALAMINE 3 % 1,000 ML IV SCH (20:34)
[2017-05-27] MEDS: SINGULAIR TAB 10 MG PO SCH (20:37)
[2017-05-28] MEDS: DUONEB 0.5 MG/3 MG NEB SCH ×6 (00:55→21:01)
[2017-05-28] MEDS: NS 1000 ML 1,000 ML IV SCH ×3 (05:32→13:04)
[2017-05-28 05:37] LABS: BASOPHILS % (AUTO) 0.6 % (0.2-1.0); BLOOD UREA NITROGEN 9 mg/dL (7-18); CARBON DIOXIDE 28.2 mmol/L (21-32); CHLORIDE 105 mmol/L (98-107); CREATININE 0.55 mg/dL (0.55-1.02); EOSINOPHILS # (AUTO) 0.5 x10^3/uL (0.0-0.2); EOSINOPHILS % (AUTO) 6.4 % (0.9-2.9); HEMATOCRIT 32.8 % (36.0-47.0); HEMOGLOBIN 11.2 g/dL (12.0-16.0); LYMPHOCYTES # (AUTO) 1.3 X10^3/uL (1.3-2.9); LYMPHOCYTES % (AUTO) 17.4 % (21.0-51.0); MEAN CORPUSCULAR HEMOGLOBIN 32.1 pg (27.0-34.0); MEAN CORPUSCULAR HGB CONC 34.1 g/dL (33.0-35.0); MEAN CORPUSCULAR VOLUME 94.2 fL (80.0-100.0); MEAN PLATELET VOLUME 8.2 fL (7.4-11.0); MONOCYTES # (AUTO) 0.9 x10^3/uL (0.3-0.8); NEUTROPHILS # (AUTO) 4.9 x10^3/uL (2.2-4.8); NEUTROPHILS % (AUTO) 63.6 % (42.0-75.0); PLATELET COUNT 309 X10^3/uL (150.0-450.0); RED BLOOD COUNT 3.48 X10^6/uL (3.5-5.4); RED CELL DISTRIBUTION WIDTH 14.2 % (11.6-16.5); SODIUM 141 mmol/L (136-145); eGFR BLACK RACES > 60 (>60); eGFR NON BLACK RACES > 60 (>60)
[2017-05-28 06:11] LABS: WHITE BLOOD COUNT 9.8 X10^3/uL (3.6-10.0)
[2017-05-28 06:12] LABS: PLATELET MORPHOLOGY COMMENT NORMAL (NORMAL)
[2017-05-28] MEDS: ALBUMIN HUMAN 25%- 100ML 100 ML IV SCH (08:02)
[2017-05-28] MEDS: K-DUR TAB 20 MEQ PO SCH ×2 (08:02→20:51)
[2017-05-28] MEDS: LASIX PO SCH (08:05)
[2017-05-28] MEDS: LEVAQUIN PREMIX IV 750 MG 750 MG/150 ML BAG IV SCH (08:05)
[2017-05-28] MEDS: PEPCID TAB 20 MG PO SCH ×2 (08:06→20:51)
[2017-05-28] MEDS: MIRALAX POWDER (1 DOSE 17GM) PO SCH (08:06)
[2017-05-28] MEDS: ROBITUSSIN DM PO SCH ×4 (08:06→20:51)
[2017-05-28] MEDS: MUCINEX EXPECTORANT PO SCH ×2 (08:06→20:51)
[2017-05-28] MEDS ORDERED: PROCALAMINE 3 % 1,000 ML IV SCH (11:15)
--- NOTE | 2017-05-28 12:44 | RAD ---
HISTORY: Chest pain Study: Single-view chest. Comparison: March 31, 2012. Findings: The trachea is midline. The cardiac silhouette is enlarged. There is a retrocardiac opacity which pro bably reflects an infiltrate or atelectasis remote left basilar effusion. Background changes of COPD are observed with mild central vascular congestion without radiographic evidence for CHF. Dilatation of the large bowel beneath the diaphragm is observed, diffusely. Please correlate. No other acute abn ormality is seen. The bony thorax is grossly intact. IMPRESSION: The trachea is midline. The cardiac silhouette is enlarged. There is a retrocardiac opacity which pro bably reflects an infiltrate or atelectasis remote left basilar effusion. This might be better assess ed with a lateral chest radiographic imaging or dedicated chest CT imaging. Background changes of [employer] are observed with mild central vascular congestion without radiographic evidence for CHF. Dilatatio n of the large bowel beneath the diaphragm is observed, diffusely. Please correlate. No other acute a bnormality is seen. The bony thorax is grossly intact. Reported By:
--- NOTE | 2017-05-28 16:07 | CT ---
STUDY: CT CHEST WITHOUT CONTRAST HISTORY: Pneumonia. COPD. Comparison: Chest radiograph from May 28, 2017. Technique: Multiple axial images of the chest were obtained from the thoracic inlet to the upper abdo men without the administration of IV contrast. Findings: Several lymph nodes are noted within the mediastinum. No pathologically enlarged lymph nodes are iden tified. There is no significant pericardial effusion. The aorta has a normal appearance. The centr al pulmonary arterial system has a normal nonenhanced appearance. There underlying changes of COPD in both lungs. There are focal airspace opacities in the lower lobes bilaterally, with associated air bronchograms. Some patchy airspace opacities noted in the posterior inferior aspect of the left upper lobe. There are small bilateral pleural effusions. There is no mike dence of pneumothorax. No pulmonary nodule or mass is identified. The bony thorax is unremarkable i n its appearance. Visualized portions of the colon are dilated with air. IMPRESSION: 1. Airspace opacities in both lower lobes with associated air bronchograms. Clinical correlation for bilateral lower lobe pneumonia is recommended. 2. COPD. Reported By:
--- NOTE | 2017-05-28 16:15 | CT ---
HISTORY: Pneumonia COPD Study: CT abdomen and pelvis without contrast Comparison: Chest CT from same day Technique: Multiple axial images of the abdomen and pelvis were obtained from the lung bases to the pubic symphy sis without the administration of IV contrast. Findings: The visualized portions of the lung bases are best described on the chest CT portion of the exam.. T he liver, spleen, pancreas, kidneys, and adrenal glands are unremarkable in their CT appearance. The solid organs appear unremarkable in their noncontrast appearance. Gallbladder is of. No significant mesenteric lymphadenopathy or stranding can be observed. No free fluid or free air is seen within th e abdomen. No bowel wall thickening or bowel dilatation is present. The colon is massively distende d with a large amount of stool within the left side of the colon. 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 Urinary bladder has a catheter in place. The bony structures d emonstrate chronic depression deformity of L1 with chronic deformity of the hip on the right. The bon es are osteopenic. There is a small back into Ing umbilical hernia not mentioned above. IMPRESSION: 1. A large amount of stool throughout the colon with no focal narrowing or swelling vessels to sugge st obstructive mass or bilateral this. This is probably due to pseudo-obstruction secondary to coloni c obstipation. Reported By:
[2017-05-28] MEDS: SINGULAIR TAB 10 MG PO SCH (20:51)
[2017-05-29] MEDS: DUONEB 0.5 MG/3 MG NEB SCH ×6 (01:23→21:03)
[2017-05-29] MEDS: NS 1000 ML 1,000 ML IV SCH ×2 (05:33→15:17)
[2017-05-29 06:05] LABS: BASOPHILS % (AUTO) 0.6 % (0.2-1.0); EOSINOPHILS # (AUTO) 0.3 x10^3/uL (0.0-0.2); EOSINOPHILS % (AUTO) 9.3 % (0.9-2.9); HEMATOCRIT 30.7 % (36.0-47.0); HEMOGLOBIN 10.3 g/dL (12.0-16.0); LYMPHOCYTES % (AUTO) 29.2 % (21.0-51.0); MEAN CORPUSCULAR HEMOGLOBIN 31.7 pg (27.0-34.0); MEAN CORPUSCULAR HGB CONC 33.6 g/dL (33.0-35.0); MEAN CORPUSCULAR VOLUME 94.3 fL (80.0-100.0); MEAN PLATELET VOLUME 6.7 fL (7.4-11.0); MONOCYTES # (AUTO) 0.5 x10^3/uL (0.3-0.8); MONOCYTES % (AUTO) 14.9 % (0.0-13.0); NEUTROPHILS # (AUTO) 1.5 x10^3/uL (2.2-4.8); PLATELET COUNT 283 X10^3/uL (150.0-450.0); RED BLOOD COUNT 3.26 X10^6/uL (3.5-5.4); RED CELL DISTRIBUTION WIDTH 14.2 % (11.6-16.5); WHITE BLOOD COUNT 3.3 X10^3/uL (3.6-10.0)
[2017-05-29 06:10] LABS: ALANINE AMINOTRANSFERASE 42 Units/L (12-78); ALBUMIN 3.5 g/dL (3.4-5.0); ALKALINE PHOSPHATASE 54 Units/L (46-116); ASPARTATE AMINO TRANSFERASE 42 Units/L (15-37); BLOOD UREA NITROGEN 9 mg/dL (7-18); CALCIUM 8.6 mg/dL (8.5-10.1); CARBON DIOXIDE 27.3 mmol/L (21-32); CHLORIDE 106 mmol/L (98-107); CREATININE 0.53 mg/dL (0.55-1.02); SODIUM 143 mmol/L (136-145); TOTAL PROTEIN 6.4 g/dL (6.4-8.2); eGFR BLACK RACES > 60 (>60); eGFR NON BLACK RACES > 60 (>60)
[2017-05-29] MEDS: MUCINEX EXPECTORANT PO SCH ×2 (08:48→21:55)
[2017-05-29] MEDS: PEPCID TAB 20 MG PO SCH ×2 (08:48→21:55)
[2017-05-29] MEDS: LEVAQUIN PREMIX IV 750 MG 750 MG/150 ML BAG IV SCH (08:48)
[2017-05-29] MEDS: LASIX PO SCH (08:48)
[2017-05-29] MEDS: MIRALAX POWDER (1 DOSE 17GM) PO SCH (08:48)
[2017-05-29] MEDS: K-DUR TAB 20 MEQ PO SCH ×2 (08:48→21:55)
[2017-05-29] MEDS: ALBUMIN HUMAN 25%- 100ML 100 ML IV SCH (08:48)
[2017-05-29] MEDS: ROBITUSSIN DM PO SCH ×4 (08:48→21:55)
[2017-05-29] MEDS ORDERED: NEOSTIGMINE INJ IVP NR (10:00)
--- NOTE | 2017-05-29 10:03 | PCM.PROG ---
Progress Note - Progress Note for Day of Date: 05/29/17 - Subjective Subjective: pt is still having abdominal pain and distention .. no nausea , no vomiting. abdominal xray is still showing dilated large bowell , no mechanical obstruction - Past Medical Family Social History Past Med/Fam/Surg Hx: No changes since H&P Allergies: Allergies Penicillins Allergy (Verified 03/02/17 20:54) Sulfa (Sulfonamide Antibiotics) [SULFA] Allergy (Verified 03/02/17 20:54) - Review of Systems ROS: No change since H&P - Vital Signs and I&O's Vital Signs: Temperature 97.8 F Pulse Rate [Left Brachial] 86 Pulse Rate [Right Radial] 82 Pulse Rate 82 Respiratory Rate 34 Blood Pressure [Left Arm] 126/55 Blood Pressure [Right Arm] 112/53 Blood Pressure 130/83 O2 Sat by Pulse Oximetry 96 Intake and Output: Intake & Output 05/26/17 05/27/17 05/28/17 05/29/17 11:59 11:59 11:59 11:59 Intake Total 1450 800 741 40 Output Total 2225 4300 3125 850 Balance -775 -5710 -2384 -810 - Physical Exam Oriented: Unable to test Eyes: Normal Ear: Normal Nose: Other (nasal congestion ) Throat: Normal Respiratory: Right, Left, Generalized, Wheezes, Rhonchi Cardiovascular: Normal. negative: Murmur, Edema : Normal. negative: Dysuria, Hematuria, Frequency, Discharge, Testicular Pain , Bleeding, , Other Auscultation: Bowel Sounds: High Pitched Palpation: Other (abdomen is distended with epigastric tenderness ) Tenderness: Diffuse, Mild Skin: Normal. negative: Diaphoresis, Wound, Bruising, Ecchymosis Musculoskeletal: Normal (pt is contracted and bed ridden) Psychiatric: Normal Mood Description: Calm Affect: Normal Speech Pattern: Clear - Laboratory and Diagnostics Result Diagrams: 05/29/17 05:35 05/29/17 05:35 Labs: 05/22/17 04:20 Blood Blood Culture - Final 05/22/17 03:30 Blood Blood Culture - Final 05/22/17 06:20 Sputum - Expectorated Sputum Sputum Culture - Final Methicillin Resis Staph Aureus 05/22/17 06:20 Sputum - Expectorated Sputum - Final Laboratory WBC 3.3 X10^3/uL (3.6-10.0) L 05/29/17 05:35 RBC 3.26 X10^6/uL (3.5-5.4) L 05/29/17 05:35 Hgb 10.3 g/dL (12.0-16.0) L 05/29/17 05:35 Hct 30.7 % (36.0-47.0) L 05/29/17 05:35 MCV 94.3 fL (80.0-100.0) 05/29/17 05:35 MCH 31.7 pg (27.0-34.0) 05/29/17 05:35 MCHC 33.6 g/dL (33.0-35.0) 05/29/17 05:35 RDW 14.2 % (11.6-16.5) 05/29/17 05:35 Plt Count 283 X10^3/uL (150.0-450.0) 05/29/17 05:35 Plt Count Comment Adequate (ADEQUATE) 05/28/17 04:35 MPV 6.7 fL (7.4-11.0) L 05/29/17 05:35 Neut % 46.0 % (42.0-75.0) 05/29/17 05:35 Lymph % 29.2 % (21.0-51.0) 05/29/17 05:35 [place] % 14.9 % (0.0-13.0) H 05/29/17 05:35 Eos % 9.3 % (0.9-2.9) H 05/29/17 05:35 Baso % 0.6 % (0.2-1.0) 05/29/17 05:35 Neut # 1.5 x10^3/uL (2.2-4.8) L 05/29/17 05:35 Lymph # 1.0 X10^3/uL (1.3-2.9) L 05/29/17 05:35 [place] # 0.5 x10^3/uL (0.3-0.8) 05/29/17 05:35 Eos # 0.3 x10^3/uL (0.0-0.2) H 05/29/17 05:35 Baso # 0.0 X10^3/uL (0.0-0.1) 05/29/17 05:35 Absolute Nucleated RBC 0.0 /100WBC 05/29/17 05:35 Total Counted 100 05/22/17 04:20 Neutrophils % (Manual) 42 % (39-76) 05/22/17 04:20 Band Neutrophils % 34 % (0-10) H 05/22/17 04:20 Lymphocytes % (Manual) 5 % (13-43) L 05/22/17 04:20 Monocytes % (Manual) 14 % (4-9) H 05/22/17 04:20 Eosinophils % (Manual) 3 % (0-6) 05/22/17 04:20 Metamyelocytes % 2 05/22/17 04:20 Plt Morphology Comment Normal (NORMAL) 05/28/17 04:35 RBC Morphology Normal (NORMAL) 05/28/17 04:35 ESR 87 MM/HOUR (0-20) H 05/23/17 05:16 INR Target Range - 05/25/17 10:40 INR 1.11 (0.8-1.3) 05/25/17 10:40 Sodium 143 mmol/L (136-145) 05/29/17 05:35 Corrected Sodium TNP 05/29/17 05:35 Potassium 3.5 mmol/L (3.5-5.1) 05/29/17 05:35 Chloride 106 mmol/L (98-107) 05/29/17 05:35 Carbon Dioxide 27.3 mmol/L (21-32) 05/29/17 05:35 BUN 9 mg/dL (7-18) 05/29/17 05:35 Creatinine 0.53 mg/dL (0.55-1.02) L 05/29/17 05:35 Est GFR (MDRD) Af Amer > 60 (>60) 05/29/17 05:35 Est GFR (MDRD) Non-Af > 60 (>60) 05/29/17 05:35 Glucose 83 mg/dL (65-99) 05/29/17 05:35 Lactic Acid 1.0 mmol/L (0.4-2.0) 05/22/17 04:20 Calcium 8.6 mg/dL (8.5-10.1) 05/29/17 05:35 Corrected Calcium TNP 05/29/17 05:35 Magnesium 2.3 mg/dL (1.7-2.9) 05/26/17 04:40 Total Bilirubin 0.30 mg/dL (0.2-1.0) 05/29/17 05:35 AST 42 Units/L (15-37) H 05/29/17 05:35 ALT 42 Units/L (12-78) 05/29/17 05:35 Alkaline Phosphatase 54 Units/L (46-116) 05/29/17 05:35 C-Reactive Protein 144.50 mg/L (0-3.0) H 05/23/17 05:16 Total Protein 6.4 g/dL (6.4-8.2) 05/29/17 05:35 Albumin 3.5 g/dL (3.4-5.0) 05/29/17 05:35 Globulin 2.9 g/dL (2.5-4.5) 05/29/17 05:35 Albumin/Globulin Ratio 1.2 Ratio (1.1-2.1) 05/29/17 05:35 Specimen Type Catherized urine 05/22/17 14:21 Urine Color Yellow (YELLOW) 05/22/17 14:21 Urine Appearance Slightly hazy (CLEAR) 05/22/17 14:21 Urine pH 5.0 (5.0 - 8.0) 05/22/17 14:21 Ur Specific [place] 1.025 (1.000-1.030) 05/22/17 14:21 Urine Protein 2+ (NEGATIVE) 05/22/17 14:21 Urine Glucose (UA) Negative (NEGATIVE) 05/22/17 14:21 Urine Ketones Negative (NEGATIVE) 05/22/17 14:21 Urine Occult Blood Negative (NEGATIVE) 05/22/17 14:21 Urine Nitrite Negative (NEGATIVE) 05/22/17 14:21 Urine Bilirubin Negative (NEGATIVE) 05/22/17 14:21 Urine Urobilinogen Normal (NORMAL) 05/22/17 14:21 Ur Leukocyte Esterase 1+ (NEGATIVE) 05/22/17 14:21 Urine RBC 0-1 /HPF (NEGATIVE) 05/22/17 14:21 Urine WBC 0-2 /HPF (NEGATIVE) 05/22/17 14:21 Ur Squamous Epith Cells Rare /HPF (NEGATIVE) 05/22/17 14:21 Amorphous Sediment 1+ /HPF (NEGATIVE) 05/22/17 14:21 Urine Bacteria 1+ /HPF (NEGATIVE) 05/22/17 14:21 Hyaline Casts Few /LPF (NEGATIVE) 05/22/17 14:21 Ur Culture Indicated? No/not indicated 05/22/17 14:21 Radiology Reviewed: Yes (still showing large SIDRA..) - Plan (1) Pseudo-obstruction of colon Status: Acute Narrative Support Text: by clinical and radiology finding Plan: will try Neostigmin IV as ordered (2) Ileus Status: Acute (3) At risk for aspiration Status: Acute Plan: HOLD NPO, CONSULT WITH FAMILY FOR POSSIBLE PEG TUBE, CONTINUE TO MONITOR (4) RLL pneumonia Status: Acute Qualifiers: Pneumonia type: due to unspecified organism Qualified Code(s): J18.1 - Lobar pneumonia, unspecified organism Plan: pneumonia protocol, levaquin 750mg iv daily, continue respiratory tx, continue supplemental oxygen, continue to monitor (5) COPD (chronic obstructive pulmonary disease) Status: Chronic Qualifiers: COPD type: unspecified COPD Qualified Code(s): J44.9 - Chronic obstructive pulmonary disease, unspecified (6) GERD (gastroesophageal reflux disease) Status: Acute Qualifiers: Esophagitis presence: esophagitis presence not specified Qualified Code(s) : K21.9 - Gastro-esophageal reflux disease without esophagitis
--- NOTE | 2017-05-29 10:17 | RAD ---
Examination: KUB History: Pneumonia, COPD Comparison reference 05/27/2017 Findings: A supine view of the abdomen knees very limited, technically; portions of the upper abdomen and the flanks are not included on the image. There is persistent marked gaseous distention of bowel primarily colon. No evidence for pneumatosis. Impression: Persistent colon distention consistent with mechanical distal obstruction or pseudo-obstr uction. Reported By:
[2017-05-29] MEDS ORDERED: NEOSTIGMINE INJ IV ONE (10:42)
[2017-05-29] MEDS ORDERED: NEOSTIGMINE INJ IV STA (15:09)
[2017-05-29] MEDS: SINGULAIR TAB 10 MG PO SCH (21:55)
[2017-05-30] MEDS: DUONEB 0.5 MG/3 MG NEB SCH ×6 (01:18→20:46)
[2017-05-30] MEDS: NS 1000 ML 1,000 ML IV SCH ×3 (03:48→19:38)
[2017-05-30 04:29] VITALS: BMI 29.5
[2017-05-30 05:00] LABS: BASOPHILS % (AUTO) 0.7 % (0.2-1.0); EOSINOPHILS # (AUTO) 0.3 x10^3/uL (0.0-0.2); HEMATOCRIT 32.1 % (36.0-47.0); HEMOGLOBIN 10.7 g/dL (12.0-16.0); LYMPHOCYTES % (AUTO) 28.9 % (21.0-51.0); MEAN CORPUSCULAR HEMOGLOBIN 31.2 pg (27.0-34.0); MEAN CORPUSCULAR HGB CONC 33.3 g/dL (33.0-35.0); MEAN CORPUSCULAR VOLUME 93.7 fL (80.0-100.0); MEAN PLATELET VOLUME 6.8 fL (7.4-11.0); MONOCYTES # (AUTO) 0.5 x10^3/uL (0.3-0.8); MONOCYTES % (AUTO) 16.3 % (0.0-13.0); NEUTROPHILS # (AUTO) 1.5 x10^3/uL (2.2-4.8); NEUTROPHILS % (AUTO) 46.1 % (42.0-75.0); PLATELET COUNT 330 X10^3/uL (150.0-450.0); RED BLOOD COUNT 3.42 X10^6/uL (3.5-5.4); RED CELL DISTRIBUTION WIDTH 14.2 % (11.6-16.5); WHITE BLOOD COUNT 3.3 X10^3/uL (3.6-10.0)
[2017-05-30 05:18] LABS: ALANINE AMINOTRANSFERASE 48 Units/L (12-78); ALBUMIN 3.8 g/dL (3.4-5.0); ALKALINE PHOSPHATASE 54 Units/L (46-116); ASPARTATE AMINO TRANSFERASE 49 Units/L (15-37); BLOOD UREA NITROGEN 9 mg/dL (7-18); CALCIUM 8.8 mg/dL (8.5-10.1); CARBON DIOXIDE 28.9 mmol/L (21-32); CHLORIDE 105 mmol/L (98-107); CREATININE 0.58 mg/dL (0.55-1.02); SODIUM 143 mmol/L (136-145); TOTAL PROTEIN 6.7 g/dL (6.4-8.2); eGFR BLACK RACES > 60 (>60); eGFR NON BLACK RACES > 60 (>60)
--- NOTE | 2017-05-30 07:19 | RAD ---
Examination: KUB History: Bowel obstruction Comparison reference 05/29/2017 Impression: Technically limited follow-up supine views of the abdomen demonstrate no change in the ma rked gaseous distention of bowel, primarily colon. The upper abdomen and flanks are not completely vi sualized. Impression: Considering technical limitations and differences there is no change. Differential is bet ween distal colon obstruction and colonic pseudo-obstruction. Reported By:
[2017-05-30] MEDS ORDERED: NEOSTIGMINE INJ IV ONE (09:16)
--- NOTE | 2017-05-30 10:04 | DR.PROGNOT ---
Hospital Progress Notes - Progress Note for Day of: Progress Note Date: 05/30/17 - Chief Complaint Chief Complaint: had good results with the Prostigmin IV .. had several large BM. still with abdominal distention - Past Medical Family Social History Past Med/Fam/Surg Hx: No changes since H&P Allergies: Allergies Penicillins Allergy (Verified 03/02/17 20:54) Sulfa (Sulfonamide Antibiotics) [SULFA] Allergy (Verified 03/02/17 20:54) - Review Of Systems ROS: No change since H&P - Vital Signs Vital Signs: Temperature 98.7 F Pulse Rate [Left Brachial] 90 Pulse Rate [Right Radial] 82 Pulse Rate 69 Respiratory Rate 28 Blood Pressure [Left Arm] 111/68 Blood Pressure [Right Arm] 112/53 Blood Pressure 130/83 O2 Sat by Pulse Oximetry 98 - Physical Exam Oriented: Unable to test Eyes: Normal Ear: Normal Nose: Other (nasal congestion ) Throat: Normal Respiratory: Right, Left, Generalized, Wheezes, Rhonchi Cardiovascular: Normal. negative: Murmur, Edema : Normal. negative: Dysuria, Hematuria, Frequency, Discharge, Testicular Pain , Bleeding, , Other GI:Auscultation: High Pitched GI:Palpation: Other ( and tympany .. BS +) GI: Tenderness: Diffuse, Mild Skin: Normal. negative: Diaphoresis, Wound, Bruising, Ecchymosis Musculoskeletal: Normal (pt is contracted and bed ridden) Psychiatric: Normal Mood Description: Calm Affect: Normal Speech Pattern: Clear - Laboratory and Diagnostics Result Diagrams: 05/30/17 04:40 05/30/17 04:40 Labs: 05/22/17 04:20 Blood Blood Culture - Final 05/22/17 03:30 Blood Blood Culture - Final 05/22/17 06:20 Sputum - Expectorated Sputum Sputum Culture - Final Methicillin Resis Staph Aureus 05/22/17 06:20 Sputum - Expectorated Sputum - Final Laboratory WBC 3.3 X10^3/uL (3.6-10.0) L 05/30/17 04:40 RBC 3.42 X10^6/uL (3.5-5.4) L 05/30/17 04:40 Hgb 10.7 g/dL (12.0-16.0) L 05/30/17 04:40 Hct 32.1 % (36.0-47.0) L 05/30/17 04:40 MCV 93.7 fL (80.0-100.0) 05/30/17 04:40 MCH 31.2 pg (27.0-34.0) 05/30/17 04:40 MCHC 33.3 g/dL (33.0-35.0) 05/30/17 04:40 RDW 14.2 % (11.6-16.5) 05/30/17 04:40 Plt Count 330 X10^3/uL (150.0-450.0) 05/30/17 04:40 Plt Count Comment Adequate (ADEQUATE) 05/28/17 04:35 MPV 6.8 fL (7.4-11.0) L 05/30/17 04:40 Neut % 46.1 % (42.0-75.0) 05/30/17 04:40 Lymph % 28.9 % (21.0-51.0) 05/30/17 04:40 [place] % 16.3 % (0.0-13.0) H 05/30/17 04:40 Eos % 8.0 % (0.9-2.9) H 05/30/17 04:40 Baso % 0.7 % (0.2-1.0) 05/30/17 04:40 Neut # 1.5 x10^3/uL (2.2-4.8) L 05/30/17 04:40 Lymph # 1.0 X10^3/uL (1.3-2.9) L 05/30/17 04:40 [place] # 0.5 x10^3/uL (0.3-0.8) 05/30/17 04:40 Eos # 0.3 x10^3/uL (0.0-0.2) H 05/30/17 04:40 Baso # 0.0 X10^3/uL (0.0-0.1) 05/30/17 04:40 Absolute Nucleated RBC 0.0 /100WBC 05/30/17 04:40 Total Counted 100 05/22/17 04:20 Neutrophils % (Manual) 42 % (39-76) 05/22/17 04:20 Band Neutrophils % 34 % (0-10) H 05/22/17 04:20 Lymphocytes % (Manual) 5 % (13-43) L 05/22/17 04:20 Monocytes % (Manual) 14 % (4-9) H 05/22/17 04:20 Eosinophils % (Manual) 3 % (0-6) 05/22/17 04:20 Metamyelocytes % 2 05/22/17 04:20 Plt Morphology Comment Normal (NORMAL) 05/28/17 04:35 RBC Morphology Normal (NORMAL) 05/28/17 04:35 ESR 87 MM/HOUR (0-20) H 05/23/17 05:16 INR Target Range - 05/25/17 10:40 INR 1.11 (0.8-1.3) 05/25/17 10:40 Sodium 143 mmol/L (136-145) 05/30/17 04:40 Corrected Sodium TNP 05/30/17 04:40 Potassium 3.9 mmol/L (3.5-5.1) 05/30/17 04:40 Chloride 105 mmol/L (98-107) 05/30/17 04:40 Carbon Dioxide 28.9 mmol/L (21-32) 05/30/17 04:40 BUN 9 mg/dL (7-18) 05/30/17 04:40 Creatinine 0.58 mg/dL (0.55-1.02) 05/30/17 04:40 Est GFR (MDRD) Af Amer > 60 (>60) 05/30/17 04:40 Est GFR (MDRD) Non-Af > 60 (>60) 05/30/17 04:40 Glucose 75 mg/dL (65-99) 05/30/17 04:40 Lactic Acid 1.0 mmol/L (0.4-2.0) 05/22/17 04:20 Calcium 8.8 mg/dL (8.5-10.1) 05/30/17 04:40 Corrected Calcium TNP 05/30/17 04:40 Magnesium 2.3 mg/dL (1.7-2.9) 05/26/17 04:40 Total Bilirubin 0.40 mg/dL (0.2-1.0) 05/30/17 04:40 AST 49 Units/L (15-37) H 05/30/17 04:40 ALT 48 Units/L (12-78) 05/30/17 04:40 Alkaline Phosphatase 54 Units/L (46-116) 05/30/17 04:40 C-Reactive Protein 144.50 mg/L (0-3.0) H 05/23/17 05:16 Total Protein 6.7 g/dL (6.4-8.2) 05/30/17 04:40 Albumin 3.8 g/dL (3.4-5.0) 05/30/17 04:40 Globulin 2.9 g/dL (2.5-4.5) 05/30/17 04:40 Albumin/Globulin Ratio 1.3 Ratio (1.1-2.1) 05/30/17 04:40 Specimen Type Catherized urine 05/22/17 14:21 Urine Color Yellow (YELLOW) 05/22/17 14:21 Urine Appearance Slightly hazy (CLEAR) 05/22/17 14:21 Urine pH 5.0 (5.0 - 8.0) 05/22/17 14:21 Ur Specific [place] 1.025 (1.000-1.030) 05/22/17 14:21 Urine Protein 2+ (NEGATIVE) 05/22/17 14:21 Urine Glucose (UA) Negative (NEGATIVE) 05/22/17 14:21 Urine Ketones Negative (NEGATIVE) 05/22/17 14:21 Urine Occult Blood Negative (NEGATIVE) 05/22/17 14:21 Urine Nitrite Negative (NEGATIVE) 05/22/17 14:21 Urine Bilirubin Negative (NEGATIVE) 05/22/17 14:21 Urine Urobilinogen Normal (NORMAL) 05/22/17 14:21 Ur Leukocyte Esterase 1+ (NEGATIVE) 05/22/17 14:21 Urine RBC 0-1 /HPF (NEGATIVE) 05/22/17 14:21 Urine WBC 0-2 /HPF (NEGATIVE) 05/22/17 14:21 Ur Squamous Epith Cells Rare /HPF (NEGATIVE) 05/22/17 14:21 Amorphous Sediment 1+ /HPF (NEGATIVE) 05/22/17 14:21 Urine Bacteria 1+ /HPF (NEGATIVE) 05/22/17 14:21 Hyaline Casts Few /LPF (NEGATIVE) 05/22/17 14:21 Ur Culture Indicated? No/not indicated 05/22/17 14:21 Stl C. diff Tox B Gene Negative (NEGATIVE) 05/29/17 15:52 Stl C. diff [id number] Negative (NEGATIVE) 05/29/17 15:52 - Assessment and Plan 1: improving pseudo obstruction of the colon. pneumonia. Pt is bed ridden. Dysphagia. GERD 2: same plan ,. repeat Prostigmin today and obtain KUB - Problem Patient Problems: Patient Problems At risk for aspiration (Acute) Z91.89 Constipation (Acute) K59.00 Hypoproteinemia (Acute) E77.8 Ileus (Acute) K56.7 Pseudo-obstruction of colon (Acute) K59.8 RLL pneumonia (Acute) J18.1 COPD (chronic obstructive pulmonary disease) (Chronic) J44.9 GERD (gastroesophageal reflux disease) (Chronic) K21.9
[2017-05-30] MEDS: LEVAQUIN PREMIX IV 750 MG 750 MG/150 ML BAG IV SCH (10:08)
[2017-05-30] MEDS: PEPCID TAB 20 MG PO SCH ×2 (10:20→22:54)
[2017-05-30] MEDS: K-DUR TAB 20 MEQ PO SCH ×2 (10:20→22:53)
[2017-05-30] MEDS: ROBITUSSIN DM PO SCH ×4 (10:20→22:54)
[2017-05-30] MEDS: MIRALAX POWDER (1 DOSE 17GM) PO SCH (10:20)
[2017-05-30] MEDS: MUCINEX EXPECTORANT PO SCH ×2 (10:20→22:53)
[2017-05-30] MEDS: LASIX PO SCH (10:21)
[2017-05-30] MEDS: ALBUMIN HUMAN 25%- 100ML 100 ML IV SCH (12:16)
[2017-05-30] MEDS: ARTIFICIAL TEARS DROPS EACHEYE SCH ×2 (18:12→22:53)
[2017-05-30] MEDS: SINGULAIR TAB 10 MG PO SCH (22:54)
[2017-05-31] MEDS: DUONEB 0.5 MG/3 MG NEB SCH ×6 (01:19→21:02)
[2017-05-31 04:37] LABS: BASOPHILS % (AUTO) 0.5 % (0.2-1.0); EOSINOPHILS # (AUTO) 0.3 x10^3/uL (0.0-0.2); EOSINOPHILS % (AUTO) 7.2 % (0.9-2.9); HEMATOCRIT 30.9 % (36.0-47.0); HEMOGLOBIN 10.3 g/dL (12.0-16.0); LYMPHOCYTES # (AUTO) 0.8 X10^3/uL (1.3-2.9); LYMPHOCYTES % (AUTO) 23.2 % (21.0-51.0); MEAN CORPUSCULAR HEMOGLOBIN 31.4 pg (27.0-34.0); MEAN CORPUSCULAR HGB CONC 33.3 g/dL (33.0-35.0); MEAN CORPUSCULAR VOLUME 94.3 fL (80.0-100.0); MEAN PLATELET VOLUME 6.9 fL (7.4-11.0); MONOCYTES # (AUTO) 0.5 x10^3/uL (0.3-0.8); MONOCYTES % (AUTO) 14.7 % (0.0-13.0); NEUTROPHILS # (AUTO) 1.9 x10^3/uL (2.2-4.8); NEUTROPHILS % (AUTO) 54.4 % (42.0-75.0); PLATELET COUNT 316 X10^3/uL (150.0-450.0); RED BLOOD COUNT 3.27 X10^6/uL (3.5-5.4); RED CELL DISTRIBUTION WIDTH 14.8 % (11.6-16.5); WHITE BLOOD COUNT 3.6 X10^3/uL (3.6-10.0)
[2017-05-31 04:52] LABS: ALANINE AMINOTRANSFERASE 38 Units/L (12-78); ALBUMIN 3.7 g/dL (3.4-5.0); ALKALINE PHOSPHATASE 49 Units/L (46-116); ASPARTATE AMINO TRANSFERASE 33 Units/L (15-37); BLOOD UREA NITROGEN 9 mg/dL (7-18); CALCIUM 8.5 mg/dL (8.5-10.1); CARBON DIOXIDE 25.5 mmol/L (21-32); CHLORIDE 104 mmol/L (98-107); CREATININE 0.49 mg/dL (0.55-1.02); SODIUM 141 mmol/L (136-145); TOTAL PROTEIN 6.3 g/dL (6.4-8.2); eGFR BLACK RACES > 60 (>60); eGFR NON BLACK RACES > 60 (>60)
--- NOTE | 2017-05-31 07:16 | RAD ---
HISTORY: Abdominal distension Study: KUB Comparison: 05/30/2017, 05/29/2017 Findings: There is no significant change in the colonic distention being followed. Gas is not identified within the rectum. Differential diagnosis remains between distal colonic obstruction and colonic ileus. IMPRESSION: No significant change from the prior examination Reported By:
--- NOTE | 2017-05-31 07:23 | RAD ---
HISTORY: Pneumonia, COPD Study: Chest AP portable Comparison: 05/28/2017 Findings: The patient is rotated to the left. The heart is enlarged. No congestive heart failure is noted. The aorta is ectatic. The lungs are mildly hypo inflated but free of acute alveolar infiltrates. Intersti tial lung changes are present. The bony thorax is unremarkable with the exception of chronic rotator cuff disease bilaterally. IMPRESSION: Cardiomegaly without congestive heart failure Interstitial lung changes Reported By:
[2017-05-31] MEDS: LEVAQUIN PREMIX IV 750 MG 750 MG/150 ML BAG IV SCH (09:15)
[2017-05-31] MEDS: ARTIFICIAL TEARS DROPS EACHEYE SCH ×4 (09:15→21:13)
[2017-05-31] MEDS: ALBUMIN HUMAN 25%- 100ML 100 ML IV SCH (09:15)
[2017-05-31] MEDS: LASIX PO SCH (09:39)
[2017-05-31] MEDS: K-DUR TAB 20 MEQ PO SCH ×2 (09:39→21:14)
[2017-05-31] MEDS: MIRALAX POWDER (1 DOSE 17GM) PO SCH (09:40)
[2017-05-31] MEDS: PEPCID TAB 20 MG PO SCH ×2 (09:40→21:14)
[2017-05-31] MEDS: ROBITUSSIN DM PO SCH ×4 (09:40→21:14)
[2017-05-31] MEDS: MUCINEX EXPECTORANT PO SCH ×2 (09:40→21:14)
[2017-05-31] MEDS: TUSSIONEX PENNKINETIC SUSP PO PRN (14:41)
[2017-05-31] MEDS: SINGULAIR TAB 10 MG PO SCH (21:15)
[2017-06-01] MEDS: NS 1000 ML 1,000 ML IV SCH (00:29)
[2017-06-01] MEDS: DUONEB 0.5 MG/3 MG NEB SCH ×6 (01:18→21:01)
[2017-06-01 06:33] LABS: BASOPHILS % (AUTO) 0.4 % (0.2-1.0); EOSINOPHILS # (AUTO) 0.2 x10^3/uL (0.0-0.2); EOSINOPHILS % (AUTO) 5.6 % (0.9-2.9); HEMATOCRIT 31.4 % (36.0-47.0); HEMOGLOBIN 10.6 g/dL (12.0-16.0); LYMPHOCYTES # (AUTO) 0.8 X10^3/uL (1.3-2.9); LYMPHOCYTES % (AUTO) 19.5 % (21.0-51.0); MEAN CORPUSCULAR HEMOGLOBIN 31.5 pg (27.0-34.0); MEAN CORPUSCULAR HGB CONC 33.9 g/dL (33.0-35.0); MEAN PLATELET VOLUME 6.9 fL (7.4-11.0); MONOCYTES # (AUTO) 0.6 x10^3/uL (0.3-0.8); MONOCYTES % (AUTO) 13.7 % (0.0-13.0); NEUTROPHILS # (AUTO) 2.6 x10^3/uL (2.2-4.8); NEUTROPHILS % (AUTO) 60.8 % (42.0-75.0); PLATELET COUNT 285 X10^3/uL (150.0-450.0); RED BLOOD COUNT 3.38 X10^6/uL (3.5-5.4); RED CELL DISTRIBUTION WIDTH 14.4 % (11.6-16.5); WHITE BLOOD COUNT 4.3 X10^3/uL (3.6-10.0)
[2017-06-01 06:45] LABS: ALANINE AMINOTRANSFERASE 31 Units/L (12-78); ALKALINE PHOSPHATASE 49 Units/L (46-116); ASPARTATE AMINO TRANSFERASE 23 Units/L (15-37); BLOOD UREA NITROGEN 10 mg/dL (7-18); CALCIUM 8.8 mg/dL (8.5-10.1); CHLORIDE 103 mmol/L (98-107); CREATININE 0.65 mg/dL (0.55-1.02); SODIUM 141 mmol/L (136-145); TOTAL PROTEIN 6.6 g/dL (6.4-8.2); eGFR BLACK RACES > 60 (>60); eGFR NON BLACK RACES > 60 (>60)
--- NOTE | 2017-06-01 07:12 | RAD ---
Examination: Portable KUB History: Distention, constipation Comparison reference 05/31/2017 Findings: There is no change in appearance of the degree or distribution of distended colon. No new a bnormality is noted. Impression: No change. Persistent colon distention consistent with distal obstruction or ileus. Reported By:
[2017-06-01] MEDS: PEPCID TAB 20 MG PO SCH ×2 (09:08→21:10)
[2017-06-01] MEDS: ROBITUSSIN DM PO SCH (09:08)
[2017-06-01] MEDS: MIRALAX POWDER (1 DOSE 17GM) PO SCH (09:08)
[2017-06-01] MEDS: ARTIFICIAL TEARS DROPS EACHEYE SCH ×4 (09:08→21:00)
[2017-06-01] MEDS: LASIX PO SCH (09:09)
[2017-06-01] MEDS: LEVAQUIN PREMIX IV 750 MG 750 MG/150 ML BAG IV SCH (09:09)
[2017-06-01] MEDS: ALBUMIN HUMAN 25%- 100ML 100 ML IV SCH (11:30)
[2017-06-01] MEDS: K-DUR TAB 20 MEQ PO SCH (11:35)
[2017-06-01] MEDS: MUCINEX EXPECTORANT PO SCH ×2 (11:35→21:09)
[2017-06-01] MEDS: MAG-OX TAB PO SCH ×2 (12:30→18:02)
[2017-06-01] MEDS: ZITHROMAX INJ 500 MG VIAL 500 MG in NS 250 ML IV 250 ML IV SCH (12:31)
--- NOTE | 2017-06-01 12:32 | PCM.PROG ---
Progress Note - Progress Note for Day of Date: 06/01/17 - Subjective Subjective: abdominal pain is much better .. no nausea , no vomiting. abdominal xray is still showing dilated large bowell , no mechanical obstruction. all c dif were negative. pt is tolerating oral intake , no aspiration .. more alert . - Past Medical Family Social History Past Med/Fam/Surg Hx: No changes since H&P Allergies: Allergies Penicillins Allergy (Verified 03/02/17 20:54) Sulfa (Sulfonamide Antibiotics) [SULFA] Allergy (Verified 03/02/17 20:54) - Review of Systems ROS: No change since H&P - Vital Signs and I&O's Vital Signs: Temperature 99.7 F Pulse Rate [Left Brachial] 92 Pulse Rate [Right Radial] 89 Pulse Rate 83 Respiratory Rate 32 Blood Pressure [Left Arm] 107/61 Blood Pressure [Right Arm] 98/86 Blood Pressure 130/83 O2 Sat by Pulse Oximetry 96 Intake and Output: Intake & Output 05/30/17 05/31/17 06/01/17 06/02/17 11:59 11:59 11:59 11:59 Intake Total 312 392 8754 Output Total 575 400 550 Balance -355 -270 540 - Physical Exam Oriented: Unable to test Eyes: Normal Ear: Normal Nose: Other (nasal congestion ) Throat: Normal Respiratory: Right, Left, Generalized, Wheezes, Rhonchi Cardiovascular: Normal. negative: Murmur, Edema : Normal. negative: Dysuria, Hematuria, Frequency, Discharge, Testicular Pain , Bleeding, , Other Auscultation: Bowel Sounds: Normal, Increased, Decreased (occasional high pitched) Tenderness: Diffuse, Mild Skin: Normal. negative: Diaphoresis, Wound, Bruising, Ecchymosis Musculoskeletal: Normal (pt is contracted and bed ridden) Psychiatric: Normal Mood Description: Calm Affect: Normal Speech Pattern: Clear - Laboratory and Diagnostics Result Diagrams: 06/01/17 06:08 06/01/17 06:08 Labs: 05/22/17 04:20 Blood Blood Culture - Final 05/22/17 03:30 Blood Blood Culture - Final 05/22/17 06:20 Sputum - Expectorated Sputum Sputum Culture - Final Methicillin Resis Staph Aureus 05/22/17 06:20 Sputum - Expectorated Sputum - Final Laboratory WBC 4.3 X10^3/uL (3.6-10.0) 06/01/17 06:08 RBC 3.38 X10^6/uL (3.5-5.4) L 06/01/17 06:08 Hgb 10.6 g/dL (12.0-16.0) L 06/01/17 06:08 Hct 31.4 % (36.0-47.0) L 06/01/17 06:08 MCV 93.0 fL (80.0-100.0) 06/01/17 06:08 MCH 31.5 pg (27.0-34.0) 06/01/17 06:08 MCHC 33.9 g/dL (33.0-35.0) 06/01/17 06:08 RDW 14.4 % (11.6-16.5) 06/01/17 06:08 Plt Count 285 X10^3/uL (150.0-450.0) 06/01/17 06:08 Plt Count Comment Adequate (ADEQUATE) 05/28/17 04:35 MPV 6.9 fL (7.4-11.0) L 06/01/17 06:08 Neut % 60.8 % (42.0-75.0) 06/01/17 06:08 Lymph % 19.5 % (21.0-51.0) L 06/01/17 06:08 [place] % 13.7 % (0.0-13.0) H 06/01/17 06:08 Eos % 5.6 % (0.9-2.9) H 06/01/17 06:08 Baso % 0.4 % (0.2-1.0) 06/01/17 06:08 Neut # 2.6 x10^3/uL (2.2-4.8) 06/01/17 06:08 Lymph # 0.8 X10^3/uL (1.3-2.9) L 06/01/17 06:08 [place] # 0.6 x10^3/uL (0.3-0.8) 06/01/17 06:08 Eos # 0.2 x10^3/uL (0.0-0.2) 06/01/17 06:08 Baso # 0.0 X10^3/uL (0.0-0.1) 06/01/17 06:08 Absolute Nucleated RBC 0.0 /100WBC 06/01/17 06:08 Total Counted 100 05/22/17 04:20 Neutrophils % (Manual) 42 % (39-76) 05/22/17 04:20 Band Neutrophils % 34 % (0-10) H 05/22/17 04:20 Lymphocytes % (Manual) 5 % (13-43) L 05/22/17 04:20 Monocytes % (Manual) 14 % (4-9) H 05/22/17 04:20 Eosinophils % (Manual) 3 % (0-6) 05/22/17 04:20 Metamyelocytes % 2 05/22/17 04:20 Plt Morphology Comment Normal (NORMAL) 05/28/17 04:35 RBC Morphology Normal (NORMAL) 05/28/17 04:35 ESR 87 MM/HOUR (0-20) H 05/23/17 05:16 INR Target Range - 05/25/17 10:40 INR 1.11 (0.8-1.3) 05/25/17 10:40 Sodium 141 mmol/L (136-145) 06/01/17 06:08 Corrected Sodium TNP 06/01/17 06:08 Potassium 4.1 mmol/L (3.5-5.1) 06/01/17 06:08 Chloride 103 mmol/L (98-107) 06/01/17 06:08 Carbon Dioxide 28.0 mmol/L (21-32) 06/01/17 06:08 BUN 10 mg/dL (7-18) 06/01/17 06:08 Creatinine 0.65 mg/dL (0.55-1.02) 06/01/17 06:08 Est GFR (MDRD) Af Amer > 60 (>60) 06/01/17 06:08 Est GFR (MDRD) Non-Af > 60 (>60) 06/01/17 06:08 Glucose 98 mg/dL (65-99) 06/01/17 06:08 Lactic Acid 1.0 mmol/L (0.4-2.0) 05/22/17 04:20 Calcium 8.8 mg/dL (8.5-10.1) 06/01/17 06:08 Corrected Calcium TNP 06/01/17 06:08 Magnesium 2.3 mg/dL (1.7-2.9) 05/26/17 04:40 Total Bilirubin 0.40 mg/dL (0.2-1.0) 06/01/17 06:08 AST 23 Units/L (15-37) 06/01/17 06:08 ALT 31 Units/L (12-78) 06/01/17 06:08 Alkaline Phosphatase 49 Units/L (46-116) 06/01/17 06:08 C-Reactive Protein 144.50 mg/L (0-3.0) H 05/23/17 05:16 Total Protein 6.6 g/dL (6.4-8.2) 06/01/17 06:08 Albumin 4.0 g/dL (3.4-5.0) 06/01/17 06:08 Globulin 2.6 g/dL (2.5-4.5) 06/01/17 06:08 Albumin/Globulin Ratio 1.5 Ratio (1.1-2.1) 06/01/17 06:08 Specimen Type Catherized urine 05/22/17 14:21 Urine Color Yellow (YELLOW) 05/22/17 14:21 Urine Appearance Slightly hazy (CLEAR) 05/22/17 14:21 Urine pH 5.0 (5.0 - 8.0) 05/22/17 14:21 Ur Specific [place] 1.025 (1.000-1.030) 05/22/17 14:21 Urine Protein 2+ (NEGATIVE) 05/22/17 14:21 Urine Glucose (UA) Negative (NEGATIVE) 05/22/17 14:21 Urine Ketones Negative (NEGATIVE) 05/22/17 14:21 Urine Occult Blood Negative (NEGATIVE) 05/22/17 14:21 Urine Nitrite Negative (NEGATIVE) 05/22/17 14:21 Urine Bilirubin Negative (NEGATIVE) 05/22/17 14:21 Urine Urobilinogen Normal (NORMAL) 05/22/17 14:21 Ur Leukocyte Esterase 1+ (NEGATIVE) 05/22/17 14:21 Urine RBC 0-1 /HPF (NEGATIVE) 05/22/17 14:21 Urine WBC 0-2 /HPF (NEGATIVE) 05/22/17 14:21 Ur Squamous Epith Cells Rare /HPF (NEGATIVE) 05/22/17 14:21 Amorphous Sediment 1+ /HPF (NEGATIVE) 05/22/17 14:21 Urine Bacteria 1+ /HPF (NEGATIVE) 05/22/17 14:21 Hyaline Casts Few /LPF (NEGATIVE) 05/22/17 14:21 Ur Culture Indicated? No/not indicated 05/22/17 14:21 Stl C. diff Tox B Gene Negative (NEGATIVE) 05/30/17 14:44 Stl C. diff 027-NAP1-BI Negative (NEGATIVE) 05/30/17 14:44 - Plan (1) Pseudo-obstruction of colon Status: Acute Plan: will increase fluid intake and thichened food and observe for aspiration. sme IV ATB for the pneumonia. OOB. DVT prophylaxis. OOB to chair. PT at bed side... (2) Ileus Status: Acute (3) At risk for aspiration Status: Acute Plan: HOLD NPO, CONSULT WITH FAMILY FOR POSSIBLE PEG TUBE, CONTINUE TO MONITOR (4) RLL pneumonia Status: Acute Qualifiers: Pneumonia type: due to unspecified organism Qualified Code(s): J18.1 - Lobar pneumonia, unspecified organism Plan: pneumonia protocol, levaquin 750mg iv daily, continue respiratory tx, continue supplemental oxygen, continue to monitor (5) COPD (chronic obstructive pulmonary disease) Status: Chronic Qualifiers: COPD type: unspecified COPD Qualified Code(s): J44.9 - Chronic obstructive pulmonary disease, unspecified (6) GERD (gastroesophageal reflux disease) Status: Chronic Qualifiers: Esophagitis presence: esophagitis presence not specified Qualified Code(s) : K21.9 - Gastro-esophageal reflux disease without esophagitis
--- NOTE | 2017-06-01 15:11 | PCM.PROG ---
Progress Note - Progress Note for Day of Date: 06/01/17 - Subjective Subjective: abdominal pain is much better .. no nausea , no vomiting. abdominal xray is still showing dilated large bowell , no mechanical obstruction , c dif were negative. pt is tolerating oral intake , no aspiration, see OT evaluation. continue IV atbx therapy, add zithromax - Past Medical Family Social History Past Med/Fam/Surg Hx: No changes since H&P Allergies: Allergies Penicillins Allergy (Verified 03/02/17 20:54) Sulfa (Sulfonamide Antibiotics) [SULFA] Allergy (Verified 03/02/17 20:54) - Review of Systems ROS: No change since H&P - Vital Signs and I&O's Vital Signs: Temperature 98.9 F Pulse Rate [Left Brachial] 104 Pulse Rate [Right Radial] 89 Pulse Rate 83 Respiratory Rate 30 Blood Pressure [Left Arm] 107/61 Blood Pressure [Right Arm] 98/86 Blood Pressure 130/83 O2 Sat by Pulse Oximetry 94 Intake and Output: Intake & Output 05/30/17 05/31/17 06/01/17 06/02/17 11:59 11:59 11:59 11:59 Intake Total 087 085 5868 Output Total 575 400 550 Balance -355 -270 540 - Physical Exam Oriented: Unable to test Eyes: Normal Ear: Normal Nose: Other (nasal congestion ) Throat: Normal Respiratory: Right, Left, Generalized, Wheezes, Rhonchi Cardiovascular: Normal. negative: Murmur, Edema : Normal Auscultation: Bowel Sounds: Normal, Decreased Tenderness: Normal Skin: Normal Musculoskeletal: Normal (pt is contracted and bed ridden), Motor Deficit Psychiatric: Normal Mood Description: Calm Affect: Normal Speech Pattern: Clear - Laboratory and Diagnostics Result Diagrams: 06/01/17 06:08 06/01/17 06:08 Labs: 05/22/17 04:20 Blood Blood Culture - Final 05/22/17 03:30 Blood Blood Culture - Final 05/22/17 06:20 Sputum - Expectorated Sputum Sputum Culture - Final Methicillin Resis Staph Aureus 05/22/17 06:20 Sputum - Expectorated Sputum - Final Laboratory WBC 4.3 X10^3/uL (3.6-10.0) 06/01/17 06:08 RBC 3.38 X10^6/uL (3.5-5.4) L 06/01/17 06:08 Hgb 10.6 g/dL (12.0-16.0) L 06/01/17 06:08 Hct 31.4 % (36.0-47.0) L 06/01/17 06:08 MCV 93.0 fL (80.0-100.0) 06/01/17 06:08 MCH 31.5 pg (27.0-34.0) 06/01/17 06:08 MCHC 33.9 g/dL (33.0-35.0) 06/01/17 06:08 RDW 14.4 % (11.6-16.5) 06/01/17 06:08 Plt Count 285 X10^3/uL (150.0-450.0) 06/01/17 06:08 Plt Count Comment Adequate (ADEQUATE) 05/28/17 04:35 MPV 6.9 fL (7.4-11.0) L 06/01/17 06:08 Neut % 60.8 % (42.0-75.0) 06/01/17 06:08 Lymph % 19.5 % (21.0-51.0) L 06/01/17 06:08 [place] % 13.7 % (0.0-13.0) H 06/01/17 06:08 Eos % 5.6 % (0.9-2.9) H 06/01/17 06:08 Baso % 0.4 % (0.2-1.0) 06/01/17 06:08 Neut # 2.6 x10^3/uL (2.2-4.8) 06/01/17 06:08 Lymph # 0.8 X10^3/uL (1.3-2.9) L 06/01/17 06:08 [place] # 0.6 x10^3/uL (0.3-0.8) 06/01/17 06:08 Eos # 0.2 x10^3/uL (0.0-0.2) 06/01/17 06:08 Baso # 0.0 X10^3/uL (0.0-0.1) 06/01/17 06:08 Absolute Nucleated RBC 0.0 /100WBC 06/01/17 06:08 Total Counted 100 05/22/17 04:20 Neutrophils % (Manual) 42 % (39-76) 05/22/17 04:20 Band Neutrophils % 34 % (0-10) H 05/22/17 04:20 Lymphocytes % (Manual) 5 % (13-43) L 05/22/17 04:20 Monocytes % (Manual) 14 % (4-9) H 05/22/17 04:20 Eosinophils % (Manual) 3 % (0-6) 05/22/17 04:20 Metamyelocytes % 2 05/22/17 04:20 Plt Morphology Comment Normal (NORMAL) 05/28/17 04:35 RBC Morphology Normal (NORMAL) 05/28/17 04:35 ESR 87 MM/HOUR (0-20) H 05/23/17 05:16 INR Target Range - 05/25/17 10:40 INR 1.11 (0.8-1.3) 05/25/17 10:40 Sodium 141 mmol/L (136-145) 06/01/17 06:08 Corrected Sodium TNP 06/01/17 06:08 Potassium 4.1 mmol/L (3.5-5.1) 06/01/17 06:08 Chloride 103 mmol/L (98-107) 06/01/17 06:08 Carbon Dioxide 28.0 mmol/L (21-32) 06/01/17 06:08 BUN 10 mg/dL (7-18) 06/01/17 06:08 Creatinine 0.65 mg/dL (0.55-1.02) 06/01/17 06:08 Est GFR (MDRD) Af Amer > 60 (>60) 06/01/17 06:08 Est GFR (MDRD) Non-Af > 60 (>60) 06/01/17 06:08 Glucose 98 mg/dL (65-99) 06/01/17 06:08 Lactic Acid 1.0 mmol/L (0.4-2.0) 05/22/17 04:20 Calcium 8.8 mg/dL (8.5-10.1) 06/01/17 06:08 Corrected Calcium TNP 06/01/17 06:08 Magnesium 2.3 mg/dL (1.7-2.9) 05/26/17 04:40 Total Bilirubin 0.40 mg/dL (0.2-1.0) 06/01/17 06:08 AST 23 Units/L (15-37) 06/01/17 06:08 ALT 31 Units/L (12-78) 06/01/17 06:08 Alkaline Phosphatase 49 Units/L (46-116) 06/01/17 06:08 C-Reactive Protein 144.50 mg/L (0-3.0) H 05/23/17 05:16 Total Protein 6.6 g/dL (6.4-8.2) 06/01/17 06:08 Albumin 4.0 g/dL (3.4-5.0) 06/01/17 06:08 Globulin 2.6 g/dL (2.5-4.5) 06/01/17 06:08 Albumin/Globulin Ratio 1.5 Ratio (1.1-2.1) 06/01/17 06:08 Specimen Type Catherized urine 05/22/17 14:21 Urine Color Yellow (YELLOW) 05/22/17 14:21 Urine Appearance Slightly hazy (CLEAR) 05/22/17 14:21 Urine pH 5.0 (5.0 - 8.0) 05/22/17 14:21 Ur Specific [place] 1.025 (1.000-1.030) 05/22/17 14:21 Urine Protein 2+ (NEGATIVE) 05/22/17 14:21 Urine Glucose (UA) Negative (NEGATIVE) 05/22/17 14:21 Urine Ketones Negative (NEGATIVE) 05/22/17 14:21 Urine Occult Blood Negative (NEGATIVE) 05/22/17 14:21 Urine Nitrite Negative (NEGATIVE) 05/22/17 14:21 Urine Bilirubin Negative (NEGATIVE) 05/22/17 14:21 Urine Urobilinogen Normal (NORMAL) 05/22/17 14:21 Ur Leukocyte Esterase 1+ (NEGATIVE) 05/22/17 14:21 Urine RBC 0-1 /HPF (NEGATIVE) 05/22/17 14:21 Urine WBC 0-2 /HPF (NEGATIVE) 05/22/17 14:21 Ur Squamous Epith Cells Rare /HPF (NEGATIVE) 05/22/17 14:21 Amorphous Sediment 1+ /HPF (NEGATIVE) 05/22/17 14:21 Urine Bacteria 1+ /HPF (NEGATIVE) 05/22/17 14:21 Hyaline Casts Few /LPF (NEGATIVE) 05/22/17 14:21 Ur Culture Indicated? No/not indicated 05/22/17 14:21 Stl C. diff Tox B Gene Negative (NEGATIVE) 05/30/17 14:44 Stl C. diff [id number]-BI Negative (NEGATIVE) 05/30/17 14:44 - Plan (1) RLL pneumonia Status: Acute Qualifiers: Pneumonia type: due to unspecified organism Qualified Code(s): J18.1 - Lobar pneumonia, unspecified organism Plan: pneumonia protocol,IV atbx, continue respiratory tx, continue supplemental oxygen, continue to monitor. repeat am labs and chest xray (2) Constipation Status: Acute Qualifiers: Constipation type: slow transit constipation Qualified Code(s): K59.01 - Slow transit constipation Plan: encourage oral hydration, monitor (3) Ileus Status: Acute (4) COPD (chronic obstructive pulmonary disease) Status: Chronic Qualifiers: COPD type: unspecified COPD Qualified Code(s): J44.9 - Chronic obstructive pulmonary disease, unspecified (5) GERD (gastroesophageal reflux disease) Status: Chronic Qualifiers: Esophagitis presence: esophagitis presence not specified Qualified Code(s) : K21.9 - Gastro-esophageal reflux disease without esophagitis
[2017-06-01] MEDS: SINGULAIR TAB 10 MG PO SCH (21:10)
[2017-06-02] MEDS: DUONEB 0.5 MG/3 MG NEB SCH ×3 (01:11→09:11)
[2017-06-02] MEDS: MAG-OX TAB PO SCH (06:02)
[2017-06-02] MEDS: NS 1000 ML 1,000 ML IV SCH (06:03)
[2017-06-02] MEDS: PEPCID TAB 20 MG PO SCH (09:40)
[2017-06-02] MEDS: MUCINEX EXPECTORANT PO SCH (09:40)
[2017-06-02] MEDS: LASIX PO SCH (09:41)
[2017-06-02] MEDS: MIRALAX POWDER (1 DOSE 17GM) PO SCH (09:41)
[2017-06-02] MEDS: ZITHROMAX INJ 500 MG VIAL 500 MG in NS 250 ML IV 250 ML IV SCH (09:43)
[2017-06-02] MEDS: LEVAQUIN PREMIX IV 750 MG 750 MG/150 ML BAG IV SCH (09:43)
[2017-06-02] MEDS: ARTIFICIAL TEARS DROPS EACHEYE SCH (10:20)
--- NOTE | 2017-06-02 10:24 | RAD ---
Examination: Portable AP chest History: Right lower lobe pneumonia Comparison reference 05/31/2017 Findings: Continued cardiac prominence with dilated aorta and brachiocephalic vasculature. Central va scular congestion with bilateral interstitial increase. No consolidation, pneumothorax or large pleur al effusion. There is gaseous distention of intestine elevating the diaphragm. Impression: No significant change in appearance of harder lungs since prior study. Reported By:
[2017-06-02 10:47] VITALS: BP 150/65
[2017-06-02] MEDS: TUSSIONEX PENNKINETIC SUSP PO PRN (11:00)
== END 2017-06-02 12:29 | DRG 194 ==
LOC: ER 01:12 → MED/SURG 04:46
PROVIDERS: ADMIT Obstetrics & Gynecology Obstetrics; ATTEND Internal Medicine
PROC: 0DJ08ZZ Inspection of Upper Intestinal Tract, Via Natural or Artificial Opening Endoscopic (ICD-10-PCS; principal; 2017-05-25 12:00)
PROC: 0DJD8ZZ Inspection of Lower Intestinal Tract, Via Natural or Artificial Opening Endoscopic (ICD-10-PCS; 2017-05-27)
PROC: 0D7L8ZZ Dilation of Transverse Colon, Via Natural or Artificial Opening Endoscopic (ICD-10-PCS; 2017-05-27)
DX: J18.8 Other pneumonia, unspecified organism (principal); K56.7 Ileus, unspecified; R06.03 Acute respiratory distress; K56.41 Fecal impaction; J44.9 Chronic obstructive pulmonary disease, unspecified; K21.9 Gastro-esophageal reflux disease without esophagitis; I10 Essential (primary) hypertension; R13.11 Dysphagia, oral phase; E77.8 Other disorders of glycoprotein metabolism; E87.6 Hypokalemia; K44.9 Diaphragmatic hernia without obstruction or gangrene; K29.00 Acute gastritis without bleeding; B95.62 Methicillin resistant Staphylococcus aureus infection as the cause of diseases classified elsewhere; R10.84 Generalized abdominal pain; I50.9 Heart failure, unspecified; R53.1 Weakness; K29.80 Duodenitis without bleeding
CPT/HCPCS: 36415; 71010; 71250; 74000; 74022; 74176; 80048; 80053; 81001; 83605; 83735; 85025; 85610; 85652; 86140; 87040; 87070; 87077; 87186; 87205; 87493; 94640; 94669; 94760; 96365; 96367; 96374; 99100; 99284; A4222; B5200; P9047; A4217; J0456; J1956; J2710; J3490; J7620

== ENCOUNTER → 2017-08-02 | Day surgery (SDC) | payer OTHER, MEDICAID ==
[~2017-08-02] MED LIST: D5 LR 1000 ML 1,000 ML IV ONE; DIPRIVAN VIAL 10 ML ONE
[2017-08-02 14:13] VITALS: BP 115/64
== END ==
LOC: SURG1 11:45
PROVIDERS: ATTEND Internal Medicine Gastroenterology
PROC: 0DJ08ZZ Inspection of Upper Intestinal Tract, Via Natural or Artificial Opening Endoscopic (ICD-10-PCS; principal; 2017-08-02 18:45)
PROC: 0DB68ZX Excision of Stomach, Via Natural or Artificial Opening Endoscopic, Diagnostic (ICD-10-PCS; principal; 2017-08-02 18:45)
DX: R11.2 Nausea with vomiting, unspecified (principal); R10.13 Epigastric pain; R10.84 Generalized abdominal pain; K21.9 Gastro-esophageal reflux disease without esophagitis; K20.8 Other esophagitis; K44.9 Diaphragmatic hernia without obstruction or gangrene; K29.60 Other gastritis without bleeding
CPT/HCPCS: 99100; A4217; J3490; J7120

== ENCOUNTER → 2017-09-26 | Outpatient (CLI) | payer OTHER, MEDICAID ==
[2017-08-02 14:13] VITALS: BP 115/64
== END ==
LOC: RAD 12:29
PROVIDERS: ATTEND Internal Medicine
DX: I10 Essential (primary) hypertension (principal); I49.5 Sick sinus syndrome
CPT/HCPCS: 93306

== ENCOUNTER 2019-06-20 14:38 | Inpatient (IN) ==
[2019-06-20] MEDS ORDERED: CONSULT PHARMACY - ANTIBIOTIC XX SCH (16:00)
[2019-06-20] MEDS ORDERED: TUSSIONEX PENNKINETIC SUSP PO PRN (16:00)
[2019-06-20] MEDS ORDERED: NS 1/2 1000 ML IV 1,000 ML IV ONE (16:28)
[2019-06-20] MEDS: NS 1/2 1000 ML IV 1,000 ML IV SCH (16:30)
[2019-06-20] MEDS: LEVAQUIN PREMIX IV 750 MG 750 MG/150 ML BAG IV SCH (17:27)
[2019-06-20] MEDS: ROBITUSSIN DM PO SCH ×2 (17:27→22:10)
[2019-06-20] MEDS ORDERED: SALINE 3% 15 ML NEB TX NEB ONE (17:31)
[2019-06-20 17:40] LABS: BILIRUBIN,URINE NEGATIVE (NEGATIVE); BLOOD/HEMOGLOBIN,URINE 1+ (NEGATIVE); GLUCOSE, URINE NEGATIVE (NEGATIVE); KETONES,URINE NEGATIVE (NEGATIVE); LEUKOCYTE ESTERASE ,URINE 1+ (NEGATIVE); NITRITES,URINE POSITIVE (NEGATIVE); PROTEIN,URINE NEGATIVE (NEGATIVE); UROBILINOGEN,URINE NORMAL (NORMAL)
[2019-06-20 17:51] LABS: APPEARANCE,URINE CLEAR (CLEAR); COLOR,URINE YELLOW (YELLOW)
[2019-06-20 17:52] LABS: BACTERIA,URINE 1+ /HPF (NEGATIVE); RBC,URINE 0-2 /HPF (0-3); SQUAMOUS EPITHELIAL CELL,UR RARE /HPF (NEGATIVE)
[2019-06-20 19:45] VITALS: BMI 26.2
[2019-06-20] MEDS ORDERED: PHARMACY CONSULT LTC MEDICATIONS XX SCH (20:00)
[2019-06-20] MEDS: DUONEB 0.5 MG/3 MG (3 mL) NEB SCH (20:05)
[2019-06-20] MEDS: PULMICORT NEB TX 0.5 MG NEB SCH (20:05)
[2019-06-20] MEDS: FORTAZ or TAZICEF VIAL INJ 1 G in NS 100 ML IV 100 ML IVP SCH (22:10)
[2019-06-21] MEDS: FORTAZ or TAZICEF VIAL INJ 1 G in NS 100 ML IV 100 ML IVP SCH ×3 (04:19→21:10)
--- NOTE | 2019-06-21 06:12 | RAD ---
HISTORYpneumoniaSTUDYCHEST, 1 [id number] limited examination secondary to patient positioning. Repeat examination is recommended. There is retrocardiac opacity and patchy opacity within the right lung base suspicious for developing infiltrates. Chronic interstitial lung changes and COPD are noted bilaterally. No large effusion or pneumothorax. No acute osseous abnormalityIMPRESSIONTo above.Electronically signed by: ADRIANA CHRISTENSEN (Jun 21, 2019 06:10:49)
[2019-06-21 06:24] LABS: BASOPHILS % (AUTO) 0.4 % (0.2-1.0); EOSINOPHILS # (AUTO) 0.2 x10^3/uL (0.0-0.2); EOSINOPHILS % (AUTO) 2.7 % (0.9-2.9); HEMATOCRIT 34.1 % (36.0-47.0); HEMOGLOBIN 11.5 g/dL (12.0-16.0); LYMPHOCYTES # (AUTO) 1.6 X10^3/uL (1.3-2.9); LYMPHOCYTES % (AUTO) 19.2 % (21.0-51.0); MEAN CORPUSCULAR HEMOGLOBIN 32.2 pg (27.0-34.0); MEAN CORPUSCULAR HGB CONC 33.7 g/dL (33.0-35.0); MEAN CORPUSCULAR VOLUME 95.4 fL (80.0-100.0); MEAN PLATELET VOLUME 6.9 fL (7.4-11.0); MONOCYTES # (AUTO) 1.1 x10^3/uL (0.3-0.8); MONOCYTES % (AUTO) 13.4 % (0.0-13.0); NEUTROPHILS # (AUTO) 5.2 x10^3/uL (2.2-4.8); NEUTROPHILS % (AUTO) 64.3 % (42.0-75.0); PLATELET COUNT 250 X10^3/uL (150.0-450.0); RED BLOOD COUNT 3.57 X10^6/uL (3.5-5.4); RED CELL DISTRIBUTION WIDTH 14.3 % (11.6-16.5); WHITE BLOOD COUNT 8.1 X10^3/uL (3.6-10.0)
[2019-06-21 06:55] LABS: ALANINE AMINOTRANSFERASE 20 Units/L (12-78); ALBUMIN 2.4 g/dL (3.4-5.0); ALKALINE PHOSPHATASE 80 Units/L (46-116); ASPARTATE AMINO TRANSFERASE 16 Units/L (15-37); BLOOD UREA NITROGEN 13 mg/dL (7-18); CARBON DIOXIDE 25.9 mmol/L (21-32); CHLORIDE 104 mmol/L (98-107); COR CA(FOR HYPOALB) 9.3 mg/dL (8.5-10.1); CREATININE 0.63 mg/dL (0.55-1.02); SODIUM 139 mmol/L (136-145); TOTAL PROTEIN 6.2 g/dL (6.4-8.2); eGFR NON BLACK RACES > 60 (>60)
[2019-06-21] MEDS: FLUTICASONE PROPION SALMETEROL IN SCH (08:30)
[2019-06-21] MEDS: PULMICORT NEB TX 0.5 MG NEB SCH ×2 (08:38→20:30)
[2019-06-21] MEDS: DUONEB 0.5 MG/3 MG (3 mL) NEB SCH ×5 (08:38→20:29)
[2019-06-21] MEDS ORDERED: AMINO AC PROTEIN HYDR WHEY PRO PO SCH (09:00)
[2019-06-21] MEDS ORDERED: ASCORBIC ACID 500 MG PO SCH (09:00)
--- NOTE | 2019-06-21 09:48 | DR.H&P ---
H&P - History & Physical for Day of: H&P Date: 06/20/19 - Chief Complaint Chief Complaint: COUGH, SOB - History of Present Illness History of Present Illness: IS A 88 YEAR OLD PATIENT OF OURS WHO IS A RESIDENT OF [facility]. SHE PRESENTED TO THE HOSPITAL A DIRECT ADMISSION DUE TO COMPLAINTS OF PERSISTENT COUGH AND SHORNTESS OF BREATH. PRIOR TO ARRIVAL, OUTPATIENT LABS WERE OBTAINED AND REVEALED: HGB 11.8, HCT 35.2, CALCIUM 7.9, ALBUMIN 2.6. A URINALYSIS WAS OBTAINED AND REVEALED: WBC 3-5, RBC 0-2, LEUKOCYTES 1+, BACTERIA 1+, NITRITE POSITIVE. A URINE CULTURE WAS SET UP. A CHEST XRAY WAS OBTAINED AND REVEALED: CARDIOMEGALY WITHOUT CHF. PERIBRONCHIAL THICKENING ON THE RIGHT CONSISTENT WITH BRONCHITIS. NO DEFINITE ACUTE INFILTRATES. SHE WAS STARTED ON 1/2NS AT 75ML/HR, LEVAQUIN 750MG IV DAILY, FORTAZ 1G IV Q8H, SOLU-MEDROL 40MG IV Q8H, RESPIRATORY TREATMENTS, SUPPLEMENTAL OXYGEN, AND HOME MEDICATIONS WERE RESUMED. WE WILL CONTINUE WITH CURRENT PLAN OF CARE TODAY AND OBTAIN AN ABG. OTHERWISE, WE WILL FOLLOW UP WITH AM LABS AND CONTINUE TO MONITOR. - Past Medical History Past Medical History: Hypertension, Dementia, COPD, GERD, Arthritis Additional Medical History: MARFANS SYNDROME, ESOPHAGEAL DISORDERS, DYSPHAGIA, BRONCHITIS, PNEUMONIA, UTI'S, MUSCLE WEAKNESS, OSTEOPOROSIS, BACK PAIN - Past Surgical History Surgical History: Unknown - Social History Does patient currently use any type of tobacco product: No Have you used tobacco products in the last 12 months: No Type of Tobacco Use: None Alcohol Use: None Drug Use: None Prescription drug monitoring program results: PDMP was not reviewed - Medications Home Medications: Penicillins Allergy (Verified 03/02/17 20:54) Sulfa (Sulfonamide Antibiotics) [SULFA] Allergy (Verified 03/02/17 20:54) CONTINUE taking the following medications ipratropium-albuterol 1 ml INHALATION Q4RESP PRN 06/20/19 [History] omeprazole magnesium [Prilosec OTC] 20 mg PO BID 06/20/19 [History] potassium chloride 20 meq PO BID 06/20/19 [History] - Review of Systems Constitutional: Weakness Eyes: No Symptoms Reported ENT: No Symptoms Reported Respiratory: Cough, Shortness of Breath, SOB with Excertion, Wheezing Cardiovascular: No Symptoms Reported Gastrointestinal: No Symptoms Reported Genitourinary: No Symptoms Reported Musculoskeletal: No Symptoms Reported Skin: No Symptoms Reported Neurological: Weakness - Physical Exam Vital Signs: Temperature 98.6 F Pulse Rate [Left Brachial] 89 Pulse Rate 98 Respiratory Rate 22 Blood Pressure [Left Arm] 124/61 Blood Pressure [Right Arm] 101/61 Blood Pressure 140/70 O2 Sat by Pulse Oximetry 93 Oriented: Person Eyes: Normal Ear: Normal Nose: Normal Throat: Normal Respiratory: Wheezes Throughout Cardiovascular: Normal : Normal Auscultation: Bowel Sounds: Normal Palpation: Normal Tenderness: Normal Skin: Normal Musculoskeletal: Normal Psychiatric: Normal Mood Description: Calm Affect: Normal Speech Pattern: Clear - Assessment/Plan (1) Bronchopneumonia Status: Acute Plan: ADMIT, 1/2NS AT 75ML/HR, LEVAQUIN 750MG IV DAILY, FORTAZ 1G IV Q8H, SOLU- MEDROL 40MG IV Q8H, RESPIRATORY TREATMENTS, SUPPLEMENTAL OXYGEN (2) Urinary tract infection Qualifiers: Urinary tract infection type: site unspecified Hematuria presence: without hematuria Qualified Code(s): N39.0 - Urinary tract infection, site not specified Status: Acute Plan: 1/2NS AT 75ML/HR, LEVAQUIN 750MG IV DAILY, FORTAZ 1G IV Q8H - Allergies Allergies/Adverse Reactions: Allergies Allergy/AdvReac Type Severity Reaction Status Date / Time Penicillins Allergy Verified 03/02/17 20:54 Sulfa (Sulfonamide Allergy Verified 03/02/17 20:54 Antibiotics) [SULFA]
[2019-06-21] MEDS: PriLOSEC PO SCH ×2 (09:50→21:12)
[2019-06-21] MEDS: VSL#3 PO SCH (09:50)
[2019-06-21] MEDS: VITAMIN C PO SCH ×2 (09:50→21:13)
[2019-06-21] MEDS: MILK OF MAGNESIA PO SCH (09:50)
[2019-06-21] MEDS: COLACE CAP 100 MG PO SCH (09:50)
[2019-06-21] MEDS: SOLU-Medrol 40 MG VIAL IVP SCH ×3 (09:50→21:12)
[2019-06-21] MEDS: ROBITUSSIN DM PO SCH ×5 (09:50→21:12)
[2019-06-21] MEDS: LASIX PO SCH (09:50)
[2019-06-21] MEDS: K-DUR TAB 20 MEQ PO SCH ×2 (09:51→21:12)
[2019-06-21 11:00] LABS: ABG BASE EXCESS 4.2 mmol/L (-2.0-2.0); ABG HCO3 28.4 mmol/L (22-26)
[2019-06-21] MEDS ORDERED: NS 1/2 1000 ML IV 1,000 ML IV ONE ×2 (12:12→20:59)
[2019-06-21] MEDS: NS 1/2 1000 ML IV 1,000 ML IV SCH ×2 (14:30→21:00)
[2019-06-21] MEDS: LEVAQUIN PREMIX IV 750 MG 750 MG/150 ML BAG IV SCH (18:31)
[2019-06-21] MEDS: SINGULAIR TAB 10 MG PO SCH (21:12)
[2019-06-22] MEDS: FORTAZ or TAZICEF VIAL INJ 1 G in NS 100 ML IV 100 ML IVP SCH ×3 (04:08→21:59)
[2019-06-22] MEDS: SOLU-Medrol 40 MG VIAL IVP SCH ×3 (05:47→21:59)
[2019-06-22 06:35] LABS: BASOPHILS % (AUTO) 0.3 % (0.2-1.0); HEMATOCRIT 33.8 % (36.0-47.0); HEMOGLOBIN 11.3 g/dL (12.0-16.0); LYMPHOCYTES # (AUTO) 0.8 X10^3/uL (1.3-2.9); LYMPHOCYTES % (AUTO) 13.5 % (21.0-51.0); MEAN CORPUSCULAR HEMOGLOBIN 31.8 pg (27.0-34.0); MEAN CORPUSCULAR HGB CONC 33.3 g/dL (33.0-35.0); MEAN CORPUSCULAR VOLUME 95.4 fL (80.0-100.0); MEAN PLATELET VOLUME 7.5 fL (7.4-11.0); MONOCYTES # (AUTO) 0.3 x10^3/uL (0.3-0.8); MONOCYTES % (AUTO) 4.7 % (0.0-13.0); NEUTROPHILS # (AUTO) 5.1 x10^3/uL (2.2-4.8); NEUTROPHILS % (AUTO) 81.5 % (42.0-75.0); PLATELET COUNT 293 X10^3/uL (150.0-450.0); RED BLOOD COUNT 3.54 X10^6/uL (3.5-5.4); RED CELL DISTRIBUTION WIDTH 14.5 % (11.6-16.5); WHITE BLOOD COUNT 6.3 X10^3/uL (3.6-10.0)
[2019-06-22 07:03] LABS: ALANINE AMINOTRANSFERASE 19 Units/L (12-78); ALBUMIN 2.5 g/dL (3.4-5.0); ALKALINE PHOSPHATASE 77 Units/L (46-116); ASPARTATE AMINO TRANSFERASE 21 Units/L (15-37); BLOOD UREA NITROGEN 12 mg/dL (7-18); CALCIUM 8.2 mg/dL (8.5-10.1); CHLORIDE 106 mmol/L (98-107); COR CA(FOR HYPOALB) 9.4 mg/dL (8.5-10.1); COR NA(FOR HYPERGLY) 141 mmol/L (136-145); CREATININE 0.53 mg/dL (0.55-1.02); SODIUM 141 mmol/L (136-145); eGFR NON BLACK RACES > 60 (>60)
[2019-06-22] MEDS: PULMICORT NEB TX 0.5 MG NEB SCH ×2 (08:38→20:28)
[2019-06-22] MEDS: DUONEB 0.5 MG/3 MG (3 mL) NEB SCH ×4 (08:38→20:28)
[2019-06-22] MEDS: PriLOSEC PO SCH ×2 (09:06→22:00)
[2019-06-22] MEDS: LASIX PO SCH (09:06)
[2019-06-22] MEDS: COLACE CAP 100 MG PO SCH (09:06)
[2019-06-22] MEDS: VSL#3 PO SCH (09:06)
[2019-06-22] MEDS: ROBITUSSIN DM PO SCH ×4 (09:06→22:00)
[2019-06-22] MEDS: MILK OF MAGNESIA PO SCH (09:07)
[2019-06-22] MEDS: VITAMIN C PO SCH ×2 (09:07→22:00)
[2019-06-22] MEDS: K-DUR TAB 20 MEQ PO SCH ×2 (09:07→21:59)
[2019-06-22] MEDS: NS 1/2 1000 ML IV 1,000 ML IV SCH (09:58)
[2019-06-22] MEDS: LEVAQUIN PREMIX IV 750 MG 750 MG/150 ML BAG IV SCH (18:16)
--- NOTE | 2019-06-22 21:26 | PCM.PROG ---
Progress Note - Progress Note for Day of Date of Exam: 06/22/19 - Subjective Subjective: WAS ADMITTED FOR TREATMENT OF BRONCHOPNEUMONIA AND A URINARY TRACT INFECTION. TODAY, SHE IS LYIN IN BED WITH EYES CLOSED ON MORNING ROUNDS. SHE AWAKENS TO VERBAL STIMULI, BUT IS DISORIENTED. ON EXAMINATION, HEART IS REGULAR IN RATE AND RHYTHM. BILATERAL LUNGS ARE NOTED WITH SCATTERED WHEEZING THROUGHOUT. ABDOMEN IS ROUND, SOFT, AND NON-TENDER WITH NORMAL BOWEL SOUNDS NOTED IN ALL QUADRANTS. HER VITALS THIS MORNING ARE: 98.0-85-28-92%RA-97/62. LABS WERE OBTAINED. ABNORMAL LAB VALUES INCLUDE THE FOLLOWING: HGB 11.3, HCT 33.8, CREATININE 0.53, GLUCOSE 119, CALCIUM 8.2, TOTAL PROTEIN 6.0, ALBUMIN 2.5. URINE AND BLOOD CULTURES ARE PENDING. SHE IS CURRENTLY RECEIVING IV FORTAZ, IV LEVAQUIN, RESPIRATORY TREATMENTS, SUPPLEMENTAL OXYGEN, AND HOME MEDICATIONS WERE RESUMED. WE WILL CONTINUE WITH CURRENT PLAN OF CARE TODAY AND DECREASE IV FLUIDS TO 50ML/HR. OTHERWISE, WE PLAN TO FOLLOW UP WITH AM LABS AND CHEST XRAY AND CONTINUE TO MONITOR. - Past Medical Family Social History Past Med/Fam/Surg Hx: No changes since H&P Allergies: Allergies Penicillins Allergy (Verified 03/02/17 20:54) Sulfa (Sulfonamide Antibiotics) [SULFA] Allergy (Verified 03/02/17 20:54) - Review of Systems ROS: No change since H&P - Vital Signs and I&O's Vital Signs: Temperature 99.0 F Pulse Rate [Left Brachial] 93 Pulse Rate 88 Respiratory Rate 28 Blood Pressure [Left Arm] 124/61 Blood Pressure [Right Arm] 136/64 Blood Pressure 140/70 O2 Sat by Pulse Oximetry 94 Intake and Output: Intake & Output 06/20/19 06/21/19 06/22/19 06/23/19 11:59 11:59 11:59 11:59 Intake Total 1120 / 1120 510 / 510 690 / 690 Output Total 650 / 650 800 / 800 200 / 200 Balance 470 / 470 -290 / -290 490 / 490 - Physical Exam Oriented: Not Oriented Eyes: Normal Ear: Normal Nose: Normal Throat: Normal Respiratory: Generalized, Diminished, Wheezes Cardiovascular: Normal : Normal Auscultation: Bowel Sounds: Normal Palpation: Normal Tenderness: Normal Skin: Normal Musculoskeletal: Normal Psychiatric: Normal Mood Description: Calm Affect: Normal Speech Pattern: Unclear - Laboratory and Diagnostics Result Diagrams: 06/22/19 05:27 06/22/19 05:27 Labs: 06/20/19 17:25 Urine,Catheterized Urine Culture - Preliminary Laboratory WBC 6.3 X10^3/uL (3.6-10.0) 06/22/19 05:27 RBC 3.54 X10^6/uL (3.5-5.4) 06/22/19 05:27 Hgb 11.3 g/dL (12.0-16.0) L 06/22/19 05:27 Hct 33.8 % (36.0-47.0) L 06/22/19 05:27 MCV 95.4 fL (80.0-100.0) 06/22/19 05:27 MCH 31.8 pg (27.0-34.0) 06/22/19 05:27 MCHC 33.3 g/dL (33.0-35.0) 06/22/19 05:27 RDW 14.5 % (11.6-16.5) 06/22/19 05:27 Plt Count 293 X10^3/uL (150.0-450.0) 06/22/19 05:27 MPV 7.5 fL (7.4-11.0) 06/22/19 05:27 Neut % (Auto) 81.5 % (42.0-75.0) H 06/22/19 05:27 Lymph % (Auto) 13.5 % (21.0-51.0) L 06/22/19 05:27 [place] % (Auto) 4.7 % (0.0-13.0) 06/22/19 05:27 Eos % (Auto) 0.0 % (0.9-2.9) L 06/22/19 05:27 Baso % (Auto) 0.3 % (0.2-1.0) 06/22/19 05:27 Neut # (Auto) 5.1 x10^3/uL (2.2-4.8) H 06/22/19 05:27 Lymph # (Auto) 0.8 X10^3/uL (1.3-2.9) L 06/22/19 05:27 [place] # (Auto) 0.3 x10^3/uL (0.3-0.8) 06/22/19 05:27 Eos # (Auto) 0.0 x10^3/uL (0.0-0.2) 06/22/19 05:27 Baso # (Auto) 0.0 X10^3/uL (0.0-0.1) 06/22/19 05:27 Absolute Nucleated RBC 0.0 /100WBC 06/22/19 05:27 Sample Site [facility] 06/21/19 10:52 ABG pH 7.460 (7.35-7.45) H 06/21/19 10:52 ABG pCO2 40.0 mmHg (35.0-45.0) 06/21/19 10:52 ABG pO2 71.0 mmHg (80.0-100.0) L 06/21/19 10:52 ABG HCO3 28.4 mmol/L (22-26) H 06/21/19 10:52 ABG O2 Saturation 95.0 % (90-100) 06/21/19 10:52 ABG Base Excess 4.2 mmol/L (-2.0-2.0) H 06/21/19 10:52 Keegan Test N/a 06/21/19 10:52 A-a Gradient 79.0 mmHg 06/21/19 10:52 FiO2 28.0 06/21/19 10:52 Blood Gas Comments Pt justyna well elj 06/21/19 10:52 Sodium 141 mmol/L (136-145) 06/22/19 05:27 Corrected Sodium 141 mmol/L (136-145) 06/22/19 05:27 Potassium 4.9 mmol/L (3.5-5.1) 06/22/19 05:27 Chloride 106 mmol/L (98-107) 06/22/19 05:27 Carbon Dioxide 25.0 mmol/L (21-32) 06/22/19 05:27 BUN 12 mg/dL (7-18) 06/22/19 05:27 Creatinine 0.53 mg/dL (0.55-1.02) L 06/22/19 05:27 Est GFR (MDRD) Af Amer > 60 (>60) 06/22/19 05:27 Est GFR (MDRD) Non-Af > 60 (>60) 06/22/19 05:27 Glucose 119 mg/dL (65-99) H 06/22/19 05:27 Calcium 8.2 mg/dL (8.5-10.1) L 06/22/19 05:27 Corrected Calcium 9.4 mg/dL (8.5-10.1) 06/22/19 05:27 Total Bilirubin 0.20 mg/dL (0.2-1.0) 06/22/19 05:27 AST 21 Units/L (15-37) 06/22/19 05:27 ALT 19 Units/L (12-78) 06/22/19 05:27 Alkaline Phosphatase 77 Units/L (46-116) 06/22/19 05:27 Total Protein 6.0 g/dL (6.4-8.2) L 06/22/19 05:27 Albumin 2.5 g/dL (3.4-5.0) L 06/22/19 05:27 Globulin 3.5 g/dL (2.5-4.5) 06/22/19 05:27 Albumin/Globulin Ratio 0.7 Ratio (1.1-2.1) L 06/22/19 05:27 Specimen Type Catherized urine 06/20/19 17:25 Urine Color Yellow (YELLOW) 06/20/19 17:25 Urine Appearance Clear (CLEAR) 06/20/19 17:25 Urine pH 5.0 (5.0 - 8.0) 06/20/19 17:25 Ur Specific [place] 1.010 (1.000-1.030) 06/20/19 17:25 Urine Protein Negative (NEGATIVE) 06/20/19 17:25 Urine Glucose (UA) Negative (NEGATIVE) 06/20/19 17:25 Urine Ketones Negative (NEGATIVE) 06/20/19 17:25 Urine Occult Blood 1+ (NEGATIVE) 06/20/19 17:25 Urine Nitrite Positive (NEGATIVE) 06/20/19 17:25 Urine Bilirubin Negative (NEGATIVE) 06/20/19 17:25 Urine Urobilinogen Normal (NORMAL) 06/20/19 17:25 Ur Leukocyte Esterase 1+ (NEGATIVE) 06/20/19 17:25 Urine RBC 0-2 /HPF (0-3) 06/20/19 17:25 Urine WBC 3-5 /HPF (0-5) 06/20/19 17:25 Ur Squamous Epith Cells Rare /HPF (NEGATIVE) 06/20/19 17:25 Urine Bacteria 1+ /HPF (NEGATIVE) 06/20/19 17:25 Ur Culture Indicated? Yes/culture set up 06/20/19 17:25 - Plan (1) Bronchopneumonia Status: Acute Plan: 1/2NS AT 50ML/HR, LEVAQUIN 750MG IV DAILY, FORTAZ 1G IV Q8H, SOLU-MEDROL 40MG IV Q8H, RESPIRATORY TREATMENTS, SUPPLEMENTAL OXYGEN (2) Urinary tract infection Status: Acute Qualifiers: Urinary tract infection type: site unspecified Hematuria presence: without hematuria Qualified Code(s): N39.0 - Urinary tract infection, site not specified Plan: 1/2NS AT 50ML/HR, LEVAQUIN 750MG IV DAILY, FORTAZ 1G IV Q8H
[2019-06-22] MEDS: SINGULAIR TAB 10 MG PO SCH (22:00)
[2019-06-23] MEDS: FORTAZ or TAZICEF VIAL INJ 1 G in NS 100 ML IV 100 ML IVP SCH ×3 (05:00→21:48)
[2019-06-23] MEDS: SOLU-Medrol 40 MG VIAL IVP SCH ×3 (05:05→21:48)
[2019-06-23 06:13] LABS: BASOPHILS % (AUTO) 0.4 % (0.2-1.0); HEMATOCRIT 32.8 % (36.0-47.0); HEMOGLOBIN 10.9 g/dL (12.0-16.0); LYMPHOCYTES % (AUTO) 13.2 % (21.0-51.0); MEAN CORPUSCULAR HEMOGLOBIN 31.8 pg (27.0-34.0); MEAN CORPUSCULAR HGB CONC 33.2 g/dL (33.0-35.0); MEAN PLATELET VOLUME 7.1 fL (7.4-11.0); MONOCYTES # (AUTO) 0.6 x10^3/uL (0.3-0.8); MONOCYTES % (AUTO) 7.1 % (0.0-13.0); NEUTROPHILS # (AUTO) 6.3 x10^3/uL (2.2-4.8); NEUTROPHILS % (AUTO) 79.3 % (42.0-75.0); PLATELET COUNT 320 X10^3/uL (150.0-450.0); RED BLOOD COUNT 3.42 X10^6/uL (3.5-5.4); RED CELL DISTRIBUTION WIDTH 14.6 % (11.6-16.5)
[2019-06-23 06:37] LABS: ALANINE AMINOTRANSFERASE 18 Units/L (12-78); ALBUMIN 2.3 g/dL (3.4-5.0); ALKALINE PHOSPHATASE 69 Units/L (46-116); ASPARTATE AMINO TRANSFERASE 19 Units/L (15-37); BLOOD UREA NITROGEN 15 mg/dL (7-18); CALCIUM 8.2 mg/dL (8.5-10.1); CARBON DIOXIDE 26.9 mmol/L (21-32); CHLORIDE 106 mmol/L (98-107); COR CA(FOR HYPOALB) 9.6 mg/dL (8.5-10.1); COR NA(FOR HYPERGLY) 141 mmol/L (136-145); CREATININE 0.78 mg/dL (0.55-1.02); SODIUM 140 mmol/L (136-145); eGFR NON BLACK RACES > 60 (>60)
[2019-06-23 06:41] LABS: BAND NEUTROPHILS % 4 % (0-10)
[2019-06-23 06:43] LABS: PLATELET MORPHOLOGY COMMENT NORMAL (NORMAL)
--- NOTE | 2019-06-23 07:37 | RAD ---
HISTORYSOBSTUDYPortable AP [id number] severe cardiomegaly with dilated thoracic aorta. Chronic interstitial thickening bilaterally. Elevated right diaphragm with mild associated basal atelectasis. Distended bowel segments are interposed between the liver and the right hemidiaphragm.IMPRESSIONCons idering technical differences, no significant radiographic change since 06/21/2019.Electronically sig mohan by: DAVID BENITEZ (Jun 23, 2019 07:36:06)
[2019-06-23] MEDS: VSL#3 PO SCH (08:03)
[2019-06-23] MEDS: PriLOSEC PO SCH ×2 (08:04→21:48)
[2019-06-23] MEDS: VITAMIN C PO SCH ×2 (08:04→21:47)
[2019-06-23] MEDS: COLACE CAP 100 MG PO SCH (08:04)
[2019-06-23] MEDS: K-DUR TAB 20 MEQ PO SCH ×2 (08:05→21:47)
[2019-06-23] MEDS: ROBITUSSIN DM PO SCH ×4 (08:06→21:48)
[2019-06-23] MEDS: MILK OF MAGNESIA PO SCH (08:06)
[2019-06-23] MEDS: LASIX PO SCH (08:06)
[2019-06-23] MEDS: DUONEB 0.5 MG/3 MG (3 mL) NEB SCH ×4 (08:26→20:05)
[2019-06-23] MEDS: PULMICORT NEB TX 0.5 MG NEB SCH ×2 (08:26→20:05)
[2019-06-23] MEDS: LOVENOX INJ 40 MG SYR SC SCH (09:36)
[2019-06-23] MEDS: FLUTICASONE PROPION SALMETEROL IN SCH (12:05)
[2019-06-23] MEDS ORDERED: NS 1/2 1000 ML IV 1,000 ML IV ONE (14:49)
[2019-06-23] MEDS: NS 1/2 1000 ML IV 1,000 ML IV SCH ×2 (14:50)
[2019-06-23] MEDS: LEVAQUIN PREMIX IV 750 MG 750 MG/150 ML BAG IV SCH (17:24)
--- NOTE | 2019-06-23 20:25 | PCM.PROG ---
Progress Note - Progress Note for Day of Date of Exam: 06/23/19 - Subjective Subjective: WAS ADMITTED FOR TREATMENT OF BRONCHOPNEUMONIA AND A URINARY TRACT INFECTION. TODAY, SHE IS LYING IN BED WITH EYES CLOSED ON MORNING ROUNDS. SHE AWAKENS TO VERBAL STIMULI, BUT CONTINUES TO BE DISORIENTED. SHE DOES HAVE A HISTORY OF DEMENTIA. ON EXAMINATION, HEART IS REGULAR IN RATE AND RHYTHM. BILATERAL LUNGS ARE NOTED WITH SCATTERED WHEEZING THROUGHOUT. ABDOMEN IS ROUND, SOFT, AND NON-TENDER WITH NORMAL BOWEL SOUNDS NOTED IN ALL QUADRANTS. HER VITALS THIS MORNING ARE: 98.4-78-25-94%-123/63. LABS WERE OBTAINED. ABNORMAL LAB VALUES INCLUDE THE FOLLOWING: RBC 3.42, HGB 10.9, HCT 32.8, GLUCOSE 128, CALCIUM 8.2, TOTAL BILI 0.10, TOTAL PROTEIN 6.0, ALBUMIN 2.3. BLOOD CULTURES ARE PENDING. URINE CULTURE REPORTS GROWTH OF E.COLI. SHE IS CURRENTLY RECEIVING IV FORTAZ, IV LEVAQUIN, RESPIRATORY TREATMENTS, SUPPLEMENTAL OXYGEN, AND HOME MEDICATIONS WERE RESUMED. WE WILL CONTINUE WITH CURRENT PLAN OF CARE TODAY. OTHERWISE, WE PLAN TO FOLLOW UP WITH AM LABS AND CHEST XRAY AND CONTINUE TO MONITOR. - Past Medical Family Social History Past Med/Fam/Surg Hx: No changes since H&P Allergies: Allergies Penicillins Allergy (Verified 03/02/17 20:54) Sulfa (Sulfonamide Antibiotics) [SULFA] Allergy (Verified 03/02/17 20:54) - Review of Systems ROS: No change since H&P - Vital Signs and I&O's Vital Signs: Temperature 99 F Pulse Rate [Left Brachial] 95 Pulse Rate 93 Respiratory Rate 22 Blood Pressure [Left Arm] 106/60 Blood Pressure [Right Arm] 99/58 Blood Pressure 140/70 O2 Sat by Pulse Oximetry 93 Intake and Output: Intake & Output 06/21/19 06/22/19 06/23/19 06/24/19 11:59 11:59 11:59 11:59 Intake Total 1120 / 1120 510 / 510 1670 / 1670 400 / 400 Output Total 650 / 650 800 / 800 400 / 400 Balance 470 / 470 -290 / -290 1270 / 1270 400 / 400 - Physical Exam Oriented: Not Oriented Eyes: Normal Ear: Normal Nose: Normal Throat: Normal Respiratory: Generalized, Diminished, Wheezes Cardiovascular: Normal : Normal Auscultation: Bowel Sounds: Normal Tenderness: Normal Skin: Normal Musculoskeletal: Normal Psychiatric: Normal Mood Description: Calm Affect: Normal Speech Pattern: Unclear - Laboratory and Diagnostics Result Diagrams: 06/23/19 05:28 06/23/19 05:28 Labs: 06/21/19 10:00 Blood Blood Culture - Preliminary 06/21/19 09:55 Blood Blood Culture - Preliminary 06/20/19 17:25 Urine,Catheterized Urine Culture - Final Escherichia Coli Laboratory WBC 8.0 X10^3/uL (3.6-10.0) 06/23/19 05:28 RBC 3.42 X10^6/uL (3.5-5.4) L 06/23/19 05:28 Hgb 10.9 g/dL (12.0-16.0) L 06/23/19 05:28 Hct 32.8 % (36.0-47.0) L 06/23/19 05:28 MCV 96.0 fL (80.0-100.0) 06/23/19 05:28 MCH 31.8 pg (27.0-34.0) 06/23/19 05:28 MCHC 33.2 g/dL (33.0-35.0) 06/23/19 05:28 RDW 14.6 % (11.6-16.5) 06/23/19 05:28 Plt Count 320 X10^3/uL (150.0-450.0) 06/23/19 05:28 Plt Count Comment Increased (ADEQUATE) A 06/23/19 05:28 MPV 7.1 fL (7.4-11.0) L 06/23/19 05:28 Neut % (Auto) 79.3 % (42.0-75.0) H 06/23/19 05:28 Lymph % (Auto) 13.2 % (21.0-51.0) L 06/23/19 05:28 George % (Auto) 7.1 % (0.0-13.0) 06/23/19 05:28 Eos % (Auto) 0.0 % (0.9-2.9) L 06/23/19 05:28 Baso % (Auto) 0.4 % (0.2-1.0) 06/23/19 05:28 Neut # (Auto) 6.3 x10^3/uL (2.2-4.8) H 06/23/19 05:28 Lymph # (Auto) 1.0 X10^3/uL (1.3-2.9) L 06/23/19 05:28 George # (Auto) 0.6 x10^3/uL (0.3-0.8) 06/23/19 05:28 Eos # (Auto) 0.0 x10^3/uL (0.0-0.2) 06/23/19 05:28 Baso # (Auto) 0.0 X10^3/uL (0.0-0.1) 06/23/19 05:28 Absolute Nucleated RBC 0.0 /100WBC 06/23/19 05:28 Total Counted 100 06/23/19 05:28 Neutrophils % (Manual) 66 % (39-76) 06/23/19 05:28 Band Neutrophils % 4 % (0-10) 06/23/19 05:28 Lymphocytes % (Manual) 29 % (13-43) 06/23/19 05:28 Monocytes % (Manual) 1 % (4-9) L 06/23/19 05:28 Plt Morphology Comment Normal (NORMAL) 06/23/19 05:28 RBC Morphology Normal (NORMAL) 06/23/19 05:28 Sample Site [facility] 06/21/19 10:52 ABG pH 7.460 (7.35-7.45) H 06/21/19 10:52 ABG pCO2 40.0 mmHg (35.0-45.0) 06/21/19 10:52 ABG pO2 71.0 mmHg (80.0-100.0) L 06/21/19 10:52 ABG HCO3 28.4 mmol/L (22-26) H 06/21/19 10:52 ABG O2 Saturation 95.0 % (90-100) 06/21/19 10:52 ABG Base Excess 4.2 mmol/L (-2.0-2.0) H 06/21/19 10:52 Keegan Test N/a 06/21/19 10:52 A-a Gradient 79.0 mmHg 06/21/19 10:52 FiO2 28.0 06/21/19 10:52 Blood Gas Comments Pt justyna well elj 06/21/19 10:52 Sodium 140 mmol/L (136-145) 06/23/19 05:28 Corrected Sodium 141 mmol/L (136-145) 06/23/19 05:28 Potassium 4.5 mmol/L (3.5-5.1) 06/23/19 05:28 Chloride 106 mmol/L (98-107) 06/23/19 05:28 Carbon Dioxide 26.9 mmol/L (21-32) 06/23/19 05:28 BUN 15 mg/dL (7-18) 06/23/19 05:28 Creatinine 0.78 mg/dL (0.55-1.02) 06/23/19 05:28 Est GFR (MDRD) Af Amer > 60 (>60) 06/23/19 05:28 Est GFR (MDRD) Non-Af > 60 (>60) 06/23/19 05:28 Glucose 128 mg/dL (65-99) H 06/23/19 05:28 Calcium 8.2 mg/dL (8.5-10.1) L 06/23/19 05:28 Corrected Calcium 9.6 mg/dL (8.5-10.1) 06/23/19 05:28 Total Bilirubin 0.10 mg/dL (0.2-1.0) L 06/23/19 05:28 AST 19 Units/L (15-37) 06/23/19 05:28 ALT 18 Units/L (12-78) 06/23/19 05:28 Alkaline Phosphatase 69 Units/L (46-116) 06/23/19 05:28 Total Protein 6.0 g/dL (6.4-8.2) L 06/23/19 05:28 Albumin 2.3 g/dL (3.4-5.0) L 06/23/19 05:28 Globulin 3.7 g/dL (2.5-4.5) 06/23/19 05:28 Albumin/Globulin Ratio 0.6 Ratio (1.1-2.1) L 06/23/19 05:28 Specimen Type Catherized urine 06/20/19 17:25 Urine Color Yellow (YELLOW) 06/20/19 17:25 Urine Appearance Clear (CLEAR) 06/20/19 17:25 Urine pH 5.0 (5.0 - 8.0) 06/20/19 17:25 Ur Specific [place] 1.010 (1.000-1.030) 06/20/19: Urine Protein Negative (NEGATIVE) 06/20/19: Urine Glucose (UA) Negative (NEGATIVE) 06/20/19 17: Urine Ketones Negative (NEGATIVE) 06/20/19: Urine Occult Blood 1+ (NEGATIVE) 06/20/19: Urine Nitrite Positive (NEGATIVE) 06/20/19: Urine Bilirubin Negative (NEGATIVE) 06/20/19 17: Urine Urobilinogen Normal (NORMAL) 06/20/19 17: Ur Leukocyte Esterase 1+ (NEGATIVE) 06/20/19: Urine RBC 0-2 /HPF (0-3) 06/20/19: Urine WBC 3-5 /HPF (0-5) 06/20/19: Ur Squamous Epith Cells Rare /HPF (NEGATIVE) 06/20/19: Urine Bacteria 1+ /HPF (NEGATIVE) 06/20/19: Ur Culture Indicated? Yes/culture set up 06/20/19 17:25 - Plan (1) Bronchopneumonia Status: Acute Plan: 1/2NS AT 50ML/HR, LEVAQUIN 750MG IV DAILY, FORTAZ 1G IV Q8H, SOLU-MEDROL 40MG IV Q8H, RESPIRATORY TREATMENTS, SUPPLEMENTAL OXYGEN (2) Urinary tract infection Status: Acute Qualifiers: Urinary tract infection type: site unspecified Hematuria presence: without hematuria Qualified Code(s): N39.0 - Urinary tract infection, site not specified Plan: 1/2NS AT 50ML/HR, LEVAQUIN 750MG IV DAILY, FORTAZ 1G IV Q8H
[2019-06-23] MEDS: SINGULAIR TAB 10 MG PO SCH (21:48)
[2019-06-24] MEDS: FORTAZ or TAZICEF VIAL INJ 1 G in NS 100 ML IV 100 ML IVP SCH ×2 (05:00→11:50)
[2019-06-24] MEDS: SOLU-Medrol 40 MG VIAL IVP SCH (05:50)
[2019-06-24] MEDS: NS 1/2 1000 ML IV 1,000 ML IV SCH (05:50)
--- NOTE | 2019-06-24 06:25 | RAD ---
HISTORYShortness of breathSTUDYCHEST, 1 [id number] is rotated to the left. The heart is enlarged. No congestive heart failure is noted. No acute alveolar infiltrates or pleural effusions are identified. Interstitial lung changes are on changed. Bony thorax is unremarkable.IMPRESSIONCardiomegaly without congestive heart failureInterstitial lung changes, stableElectronically signed by: JOSÉ MIGUEL TROTTER (Jun 24, 2019 06:24:23)
[2019-06-24 06:31] LABS: BASOPHILS % (AUTO) 0.2 % (0.2-1.0); HEMATOCRIT 35.6 % (36.0-47.0); LYMPHOCYTES # (AUTO) 0.9 X10^3/uL (1.3-2.9); LYMPHOCYTES % (AUTO) 11.6 % (21.0-51.0); MEAN CORPUSCULAR HEMOGLOBIN 32.1 pg (27.0-34.0); MEAN CORPUSCULAR HGB CONC 33.6 g/dL (33.0-35.0); MEAN CORPUSCULAR VOLUME 95.6 fL (80.0-100.0); MEAN PLATELET VOLUME 7.3 fL (7.4-11.0); MONOCYTES # (AUTO) 0.5 x10^3/uL (0.3-0.8); MONOCYTES % (AUTO) 5.8 % (0.0-13.0); NEUTROPHILS # (AUTO) 6.5 x10^3/uL (2.2-4.8); NEUTROPHILS % (AUTO) 82.4 % (42.0-75.0); PLATELET COUNT 342 X10^3/uL (150.0-450.0); RED BLOOD COUNT 3.73 X10^6/uL (3.5-5.4); RED CELL DISTRIBUTION WIDTH 14.5 % (11.6-16.5); WHITE BLOOD COUNT 7.8 X10^3/uL (3.6-10.0)
[2019-06-24 07:10] LABS: ALANINE AMINOTRANSFERASE 19 Units/L (12-78); ALBUMIN 2.6 g/dL (3.4-5.0); ALKALINE PHOSPHATASE 67 Units/L (46-116); ASPARTATE AMINO TRANSFERASE 23 Units/L (15-37); BLOOD UREA NITROGEN 18 mg/dL (7-18); CALCIUM 8.6 mg/dL (8.5-10.1); CARBON DIOXIDE 23.5 mmol/L (21-32); CHLORIDE 105 mmol/L (98-107); COR CA(FOR HYPOALB) 9.7 mg/dL (8.5-10.1); COR NA(FOR HYPERGLY) 138 mmol/L (136-145); CREATININE 0.73 mg/dL (0.55-1.02); SODIUM 137 mmol/L (136-145); TOTAL PROTEIN 6.4 g/dL (6.4-8.2); eGFR NON BLACK RACES > 60 (>60)
[2019-06-24 07:20] LABS: BAND NEUTROPHILS % 2 % (0-10); PLATELET MORPHOLOGY COMMENT NORMAL (NORMAL)
[2019-06-24] MEDS: PULMICORT NEB TX 0.5 MG NEB SCH (09:07)
[2019-06-24] MEDS: DUONEB 0.5 MG/3 MG (3 mL) NEB SCH ×2 (09:07→12:13)
[2019-06-24] MEDS: COLACE CAP 100 MG PO SCH (10:37)
[2019-06-24] MEDS: LASIX PO SCH (10:37)
[2019-06-24] MEDS: VITAMIN C PO SCH (10:37)
[2019-06-24] MEDS: VSL#3 PO SCH (10:37)
[2019-06-24] MEDS: ROBITUSSIN DM PO SCH (10:38)
[2019-06-24] MEDS: PriLOSEC PO SCH (10:38)
[2019-06-24] MEDS: LOVENOX INJ 40 MG SYR SC SCH (10:39)
[2019-06-24] MEDS: MILK OF MAGNESIA PO SCH (10:40)
[2019-06-24] MEDS: K-DUR TAB 20 MEQ PO SCH (11:03)
[2019-06-24 13:29] VITALS: BP 94/68
== END 2019-06-24 14:05 | DRG 194 ==
LOC: MED/SURG
PROVIDERS: ADMIT Internal Medicine; ATTEND Internal Medicine
DX: N39.0 Urinary tract infection, site not specified; J44.9 Chronic obstructive pulmonary disease, unspecified; B96.20 Unspecified Escherichia coli [E. coli] as the cause of diseases classified elsewhere; L89.890 Pressure ulcer of other site, unstageable; J18.0 Bronchopneumonia, unspecified organism; F03.90 Unspecified dementia, unspecified severity, without behavioral disturbance, psychotic disturbance, mood disturbance, and anxiety; I10 Essential (primary) hypertension
CPT/HCPCS: 36415; 36600; 71010; 71045; 80053; 81001; 82803; 85025; 87040; 87086; 87088; 87186; 94640; 94760; A4222; G0378; J0713; J1650; J1956; J2920; J7050; J7620; J7626

== ENCOUNTER 2019-07-20 17:14 | Observation (INO) ==
[2019-07-20 18:12] VITALS: BMI 21.9
[2019-07-20 18:17] LABS: BILIRUBIN,URINE NEGATIVE (NEGATIVE); BLOOD/HEMOGLOBIN,URINE 2+ (NEGATIVE); GLUCOSE, URINE NEGATIVE (NEGATIVE); KETONES,URINE NEGATIVE (NEGATIVE); LEUKOCYTE ESTERASE ,URINE 3+ (NEGATIVE); NITRITES,URINE POSITIVE (NEGATIVE); PROTEIN,URINE 1+ (NEGATIVE); UROBILINOGEN,URINE NORMAL (NORMAL)
[2019-07-20] MEDS ORDERED: SALINE 3% 15 ML NEB TX NEB ONE (18:26)
[2019-07-20 18:27] LABS: APPEARANCE,URINE CLOUDY (CLEAR); COLOR,URINE YELLOW (YELLOW)
[2019-07-20 18:28] LABS: BACTERIA,URINE 4+ /HPF (NEGATIVE); MUCUS,URINE MODERATE /HPF (NEGATIVE); RBC,URINE 0-2 /HPF (0-3); SQUAMOUS EPITHELIAL CELL,UR FEW /HPF (NEGATIVE)
[2019-07-20] MEDS: NS 1000 ML 1,000 ML IV SCH (18:38)
[2019-07-20] MEDS: TORADOL 30 MG VIAL IVP SCH ×2 (18:38→23:41)
[2019-07-20] MEDS ORDERED: DUONEB 0.5 MG/3 MG (3 mL) NEB PRN (19:00)
[2019-07-20] MEDS ORDERED: PHARMACY CONSULT LTC MEDICATIONS XX SCH (19:00)
--- NOTE | 2019-07-20 19:16 | RAD ---
CHEST, 1 VIEWHISTORY: HypoxiaStudy: Single view of the chest.Comparison:06/24/2019Findings:Cardiomegaly.Chronic interstitial changes are present. Osseous s tructures demonstrate no acute abnormality.IMPRESSION:1. No acute cardiopulmonary process.Electronica lly signed by: CHUCKIE ANN (Jul 20, 2019 19:15:00)
[2019-07-20 19:20] LABS: URIC ACID 5.6 mg/dL (2.6-6.0)
[2019-07-20 19:27] LABS: LACTIC ACID 1.3 mmol/L (0.4-2.0)
[2019-07-20] MEDS: PROVENTIL NEB TX 0.083% 2.5MG/ 3ML NEB SCH (20:35)
[2019-07-20] MEDS ORDERED: ROCEPHIN VIAL 1 GRAM 1 G in NS 100 ML IV + SPIKE MINIBAG* 100 ML IV SCH (21:00)
[2019-07-21] MEDS: TORADOL 30 MG VIAL IVP SCH ×2 (06:31→12:15)
[2019-07-21 06:57] LABS: BASOPHILS % (AUTO) 0.5 % (0.2-1.0); EOSINOPHILS # (AUTO) 0.4 x10^3/uL (0.0-0.2); EOSINOPHILS % (AUTO) 6.4 % (0.9-2.9); HEMATOCRIT 33.8 % (36.0-47.0); HEMOGLOBIN 11.2 g/dL (12.0-16.0); LYMPHOCYTES # (AUTO) 1.1 X10^3/uL (1.3-2.9); LYMPHOCYTES % (AUTO) 19.9 % (21.0-51.0); MEAN CORPUSCULAR HEMOGLOBIN 31.8 pg (27.0-34.0); MEAN CORPUSCULAR HGB CONC 33.2 g/dL (33.0-35.0); MEAN CORPUSCULAR VOLUME 95.8 fL (80.0-100.0); MEAN PLATELET VOLUME 7.1 fL (7.4-11.0); MONOCYTES # (AUTO) 0.6 x10^3/uL (0.3-0.8); MONOCYTES % (AUTO) 11.5 % (0.0-13.0); NEUTROPHILS # (AUTO) 3.5 x10^3/uL (2.2-4.8); NEUTROPHILS % (AUTO) 61.7 % (42.0-75.0); PLATELET COUNT 269 X10^3/uL (150.0-450.0); RED BLOOD COUNT 3.53 X10^6/uL (3.5-5.4); RED CELL DISTRIBUTION WIDTH 15.1 % (11.6-16.5); WHITE BLOOD COUNT 5.6 X10^3/uL (3.6-10.0)
[2019-07-21 07:12] LABS: ALANINE AMINOTRANSFERASE 15 Units/L (12-78); ALBUMIN 2.4 g/dL (3.4-5.0); ALKALINE PHOSPHATASE 83 Units/L (46-116); ASPARTATE AMINO TRANSFERASE 17 Units/L (15-37); BLOOD UREA NITROGEN 19 mg/dL (7-18); CHLORIDE 109 mmol/L (98-107); COR CA(FOR HYPOALB) 9.3 mg/dL (8.5-10.1); CREATININE 0.72 mg/dL (0.55-1.02); SODIUM 143 mmol/L (136-145); TOTAL PROTEIN 5.9 g/dL (6.4-8.2); eGFR NON BLACK RACES > 60 (>60)
[2019-07-21] MEDS: PROVENTIL NEB TX 0.083% 2.5MG/ 3ML NEB SCH ×2 (08:52→20:30)
[2019-07-21] MEDS: LEVAQUIN PREMIX IV 500 MG 500 MG/100 ML BAG IV SCH (12:14)
[2019-07-21] MEDS: NS 1000 ML 1,000 ML IV SCH (12:14)
[2019-07-21] MEDS: LOVENOX INJ 40 MG SYR SC SCH (12:14)
[2019-07-21] MEDS: PROTONIX INJ 40 MG VIAL IVP SCH ×2 (12:15→21:17)
[2019-07-21] MEDS: ZANAFLEX PO SCH ×2 (12:16→21:18)
[2019-07-21] MEDS: NAPROSYN PO SCH ×2 (12:16→21:17)
[2019-07-21] MEDS: VOLTAREN 1 % GEL MULTI DOSE TUBE TOP SCH ×2 (14:50→21:19)
--- NOTE | 2019-07-21 20:12 | DR.H&P ---
H&P - History & Physical for Day of: H&P Date: 07/20/19 - Chief Complaint Chief Complaint: RIGHT KNEE PAIN - History of Present Illness History of Present Illness: IS A 88 YEAR OLD PATIENT OF OURS WHO PRESENTED TO THE HOSPITAL A DIRECT ADMISSION FOR INTRACTABLE RIGHT KNEE PAIN. AN OUTPATIENT XRAY WAS OBTAINED AND REVEALED: Examination is nearly nondiagnostic secondary to poor positioning. There may very well may be a fracture of the proximal tibia given the cortical irregularities on lateral view however this cannot be confirmed on additional views. ON ARRIVAL TO THE ER, VITALS WERE: 99.5-96-20-92%-104/69. LABS WERE OBTAINED. ABNORMAL LAB VALUES INCLUDE THE FOLLOWING: HGB 11.2, HCT 33.8, CHLORIDE 109, BUN 19, CALCIUM 8.0, CRP 14.10, TOTAL PROTEIN 5.9, ALBUMIN 2.4. A URINALYSIS WAS OBTAINED AND REVEALED: WBC TNTC, RBC 0-2, LEUKOCYTES 3+, BACTERIA 4+, MUCUS MODERATED, OCCULT BLOOD 2+. URIEN AND BLOOD CULTURES ARE PENDING. A CHEST XRAY WAS OBTAINED AND REVEALED: 1. No acute cardiopulmonary process. EKG REVEALED: SINUS RHYTHM WITH HR 98. SHE WAS STARTED ON NORMAL SALINE AT 75 ML/HR, LEVAQUIN 500MG IV DAILY, LOVENOX 40MG SC DAILY, VOLTARED GEL TID, NEB TX, NAPROSYN 500MG PO BID, AND ZANAFLEX 2MG PO BID. OTHERWISE, WE PLAN TO FOLLOW UP WITH AM LABS AND CONTINUE TO MONITOR. - Past Medical History Past Medical History: Hypertension, Dementia, COPD, GERD, Arthritis Additional Medical History: MARFANS SYNDROME, ESOPHAGEAL DISORDERS, DYSPHAGIA, BRONCHITIS, PNEUMONIA, UTI'S, MUSCLE WEAKNESS, OSTEOPOROSIS, BACK PAIN - Past Surgical History Surgical History: Unknown - Social History Alcohol Use: None Drug Use: None Prescription drug monitoring program results: PDMP reviewed and no concerns identified - Medications Home Medications: Penicillins Allergy (Verified 03/02/17 20:54) Sulfa (Sulfonamide Antibiotics) [SULFA] Allergy (Verified 03/02/17 20:54) CONTINUE taking the following medications amino acids-protein hydrolys [Pro-Stat AWC] 1 ea PO BID 07/21/19 [History] - Review of Systems Constitutional: Weakness Eyes: No Symptoms Reported ENT: No Symptoms Reported Respiratory: No Symptoms Reported Cardiovascular: No Symptoms Reported Gastrointestinal: No Symptoms Reported Genitourinary: No Symptoms Reported Musculoskeletal: See HPI, Other (RIGHT KNEE PAIN ) Skin: No Symptoms Reported Neurological: No Symptoms Reported - Physical Exam Vital Signs: Temperature 97.9 F Pulse Rate [Right Radial] 88 Pulse Rate 95 Respiratory Rate 18 Blood Pressure [Right Arm] 108/53 Blood Pressure [Left Arm] 94/68 O2 Sat by Pulse Oximetry 100 Oriented: Normal Eyes: Normal Ear: Normal Nose: Normal Throat: Normal Respiratory: Diminished Throughout Cardiovascular: Normal : Normal Auscultation: Bowel Sounds: Normal Palpation: Normal Tenderness: Normal Skin: Normal Musculoskeletal: Normal Psychiatric: Normal Mood Description: Calm Affect: Normal Speech Pattern: Clear - Assessment/Plan (1) Intractable pain Status: Acute Plan: NORMAL SALINE AT 75 ML/HR, LOVENOX 40MG SC DAILY, VOLTAREN GEL TID, NEB TX, NAPROSYN 500MG PO BID, AND ZANAFLEX 2MG PO BID (2) Urinary tract infection Qualifiers: Urinary tract infection type: site unspecified Hematuria presence: without hematuria Qualified Code(s): N39.0 - Urinary tract infection, site not specified Status: Acute Plan: LEVAQUIN 500MG IV DAILY, CONTINUE TO MONITOR - Allergies Allergies/Adverse Reactions: Allergies Allergy/AdvReac Type Severity Reaction Status Date / Time Penicillins Allergy Verified 03/02/17 20:54 Sulfa (Sulfonamide Allergy Verified 03/02/17 20:54 Antibiotics) [SULFA]
[2019-07-22] MEDS: NS 1000 ML 1,000 ML IV SCH ×3 (05:14→21:51)
[2019-07-22] MEDS: VOLTAREN 1 % GEL MULTI DOSE TUBE TOP SCH ×3 (05:14→21:09)
[2019-07-22 06:30] LABS: BASOPHILS % (AUTO) 0.6 % (0.2-1.0); EOSINOPHILS # (AUTO) 0.4 x10^3/uL (0.0-0.2); EOSINOPHILS % (AUTO) 6.7 % (0.9-2.9); HEMATOCRIT 35.3 % (36.0-47.0); HEMOGLOBIN 11.5 g/dL (12.0-16.0); LYMPHOCYTES # (AUTO) 1.1 X10^3/uL (1.3-2.9); LYMPHOCYTES % (AUTO) 20.4 % (21.0-51.0); MEAN CORPUSCULAR HEMOGLOBIN 31.7 pg (27.0-34.0); MEAN CORPUSCULAR HGB CONC 32.7 g/dL (33.0-35.0); MEAN PLATELET VOLUME 7.6 fL (7.4-11.0); MONOCYTES # (AUTO) 0.6 x10^3/uL (0.3-0.8); MONOCYTES % (AUTO) 11.5 % (0.0-13.0); NEUTROPHILS # (AUTO) 3.3 x10^3/uL (2.2-4.8); NEUTROPHILS % (AUTO) 60.8 % (42.0-75.0); PLATELET COUNT 256 X10^3/uL (150.0-450.0); RED BLOOD COUNT 3.64 X10^6/uL (3.5-5.4); RED CELL DISTRIBUTION WIDTH 15.3 % (11.6-16.5); WHITE BLOOD COUNT 5.5 X10^3/uL (3.6-10.0)
[2019-07-22 06:43] LABS: ALANINE AMINOTRANSFERASE 16 Units/L (12-78); ALBUMIN 2.6 g/dL (3.4-5.0); ALKALINE PHOSPHATASE 87 Units/L (46-116); ASPARTATE AMINO TRANSFERASE 22 Units/L (15-37); BLOOD UREA NITROGEN 14 mg/dL (7-18); CHLORIDE 109 mmol/L (98-107); COR CA(FOR HYPOALB) 9.1 mg/dL (8.5-10.1); CREATININE 0.74 mg/dL (0.55-1.02); SODIUM 145 mmol/L (136-145); TOTAL PROTEIN 6.3 g/dL (6.4-8.2); eGFR NON BLACK RACES > 60 (>60)
[2019-07-22] MEDS: PROVENTIL NEB TX 0.083% 2.5MG/ 3ML NEB SCH ×2 (08:32→21:05)
[2019-07-22] MEDS: ZANAFLEX PO SCH ×2 (08:51→21:09)
[2019-07-22] MEDS: NAPROSYN PO SCH ×2 (08:51→21:08)
[2019-07-22] MEDS: PROTONIX INJ 40 MG VIAL IVP SCH ×2 (08:51→21:08)
[2019-07-22] MEDS: LEVAQUIN PREMIX IV 500 MG 500 MG/100 ML BAG IV SCH (08:51)
[2019-07-22] MEDS: LOVENOX INJ 40 MG SYR SC SCH (08:52)
[2019-07-23] MEDS: VOLTAREN 1 % GEL MULTI DOSE TUBE TOP SCH (05:47)
[2019-07-23] MEDS: NS 1000 ML 1,000 ML IV SCH (05:58)
[2019-07-23 06:07] LABS: BASOPHILS % (AUTO) 0.5 % (0.2-1.0); EOSINOPHILS # (AUTO) 0.4 x10^3/uL (0.0-0.2); HEMATOCRIT 30.2 % (36.0-47.0); LYMPHOCYTES # (AUTO) 1.3 X10^3/uL (1.3-2.9); LYMPHOCYTES % (AUTO) 20.3 % (21.0-51.0); MEAN CORPUSCULAR HEMOGLOBIN 32.2 pg (27.0-34.0); MEAN CORPUSCULAR HGB CONC 33.1 g/dL (33.0-35.0); MEAN CORPUSCULAR VOLUME 97.2 fL (80.0-100.0); MEAN PLATELET VOLUME 7.8 fL (7.4-11.0); MONOCYTES # (AUTO) 0.7 x10^3/uL (0.3-0.8); MONOCYTES % (AUTO) 11.6 % (0.0-13.0); NEUTROPHILS % (AUTO) 61.6 % (42.0-75.0); PLATELET COUNT 229 X10^3/uL (150.0-450.0); RED CELL DISTRIBUTION WIDTH 15.3 % (11.6-16.5); WHITE BLOOD COUNT 6.4 X10^3/uL (3.6-10.0)
[2019-07-23 06:18] LABS: ALANINE AMINOTRANSFERASE 13 Units/L (12-78); ALBUMIN 2.2 g/dL (3.4-5.0); ALKALINE PHOSPHATASE 68 Units/L (46-116); ASPARTATE AMINO TRANSFERASE 19 Units/L (15-37); BLOOD UREA NITROGEN 13 mg/dL (7-18); CALCIUM 7.4 mg/dL (8.5-10.1); CARBON DIOXIDE 24.5 mmol/L (21-32); CHLORIDE 111 mmol/L (98-107); COR CA(FOR HYPOALB) 8.8 mg/dL (8.5-10.1); CREATININE 0.69 mg/dL (0.55-1.02); SODIUM 144 mmol/L (136-145); TOTAL PROTEIN 5.3 g/dL (6.4-8.2); eGFR NON BLACK RACES > 60 (>60)
[2019-07-23] MEDS: NAPROSYN PO SCH (08:36)
[2019-07-23] MEDS: LEVAQUIN PREMIX IV 500 MG 500 MG/100 ML BAG IV SCH (08:36)
[2019-07-23] MEDS: PROTONIX INJ 40 MG VIAL IVP SCH (08:36)
[2019-07-23] MEDS: LOVENOX INJ 40 MG SYR SC SCH (08:36)
[2019-07-23] MEDS: ZANAFLEX PO SCH (08:36)
[2019-07-23] MEDS: PROVENTIL NEB TX 0.083% 2.5MG/ 3ML NEB SCH (08:39)
[2019-07-23 09:20] VITALS: BP 105/54
[2019-07-23] MEDS ORDERED: INVANZ INJ 1 GM VIAL 1 GM in NS 100 ML IV + SPIKE MINIBAG* 100 ML IV ONE (09:34)
--- NOTE | 2019-07-23 09:34 | PCM.PROG ---
Progress Note - Progress Note for Day of Date of Exam: 07/22/19 - Subjective Subjective: IS BEING TREATED FOR INTRACTABLE RIGHT KNEE PAIN AND A UTI. TODAY, SHE IS LYING IN BED WITH EYES CLOSED ON MORNING ROUNDS. SHE AWAKNES TO VERBAL STIMULI. SHE IS NOTED TO BE IN MODERATED PAIN WHEN SHE IS MOVED. SHE MOANS AND GRIMACES WHEN RIGHT KNEE IS TOUCHED. LOWER EXTREMITIES ARE CONTRACTED. HER VITALS THIS MORNING ARE: 98.7-80-22-96%-100/62. LABS WERE OBTAINED. ABNORMAL LAB VALUES INCLUDE THE FOLLOWING: HGB 11.5, HCT 35.3, CHLORIDE 109, CALCIUM 8.0, TOTAL PROTEIN 6.3, ALBUMIN 2.6. URINE AND BLOOD CULTURES ARE PENDING. SHE IS CURRENTLY RECEIVING NS AT 75 ML/HR, LEVAQUIN 500MG IV DAILY, LOVENOX 40MG SC DAILY, NAPROSYN 500MG PO BID, ZANAFLEX 2MG PO BID, AND RESPIRATORY TX. WE WILL CONSULT WITH TODAY. OTHERWISE, WE WILL FOLLOW UP WITH AM LABS AND CONTINUE TO MONITOR. - Past Medical Family Social History Past Med/Fam/Surg Hx: No changes since H&P Allergies: Allergies Penicillins Allergy (Verified 03/02/17 20:54) Sulfa (Sulfonamide Antibiotics) [SULFA] Allergy (Verified 03/02/17 20:54) - Review of Systems ROS: No change since H&P - Vital Signs and I&O's Vital Signs: Temperature 98.5 F Pulse Rate [Right Radial] 78 Pulse Rate 80 Respiratory Rate 25 Blood Pressure [Right Arm] 114/55 Blood Pressure [Left Arm] 105/54 O2 Sat by Pulse Oximetry 94 Intake and Output: Intake & Output 07/20/19 07/21/19 07/22/19 07/23/19 11:59 11:59 11:59 11:59 Intake Total 1045 / 1045 1380 / 1380 2622 / 2622 Output Total 365 / 365 825 / 825 100 / 100 Balance 680 / 680 555 / 555 2522 / 2522 - Physical Exam Oriented: Unable to test Eyes: Normal Ear: Normal Nose: Normal Throat: Normal Respiratory: Generalized, Diminished Cardiovascular: Normal : Normal Auscultation: Bowel Sounds: Normal Palpation: Normal Tenderness: Normal Skin: Normal Musculoskeletal: Right, Knee, Swelling, Tender Psychiatric: Other Mood Description: Calm Affect: Normal Speech Pattern: Aphasic - Laboratory and Diagnostics Result Diagrams: 07/23/19 05:35 07/23/19 05:35 Labs: 07/20/19 18:37 Blood Blood Culture - Final 07/20/19 17:40 Urine,[place] Urine Culture - Final Escherichia Coli 07/20/19 18:56 Blood Blood Culture - Preliminary Laboratory WBC 6.4 X10^3/uL (3.6-10.0) 07/23/19 05:35 RBC 3.10 X10^6/uL (3.5-5.4) L 07/23/19 05:35 Hgb 10.0 g/dL (12.0-16.0) L 07/23/19 05:35 Hct 30.2 % (36.0-47.0) L 07/23/19 05:35 MCV 97.2 fL (80.0-100.0) 07/23/19 05:35 MCH 32.2 pg (27.0-34.0) 07/23/19 05:35 MCHC 33.1 g/dL (33.0-35.0) 07/23/19 05:35 RDW 15.3 % (11.6-16.5) 07/23/19 05:35 Plt Count 229 X10^3/uL (150.0-450.0) 07/23/19 05:35 MPV 7.8 fL (7.4-11.0) 07/23/19 05:35 Neut % (Auto) 61.6 % (42.0-75.0) 07/23/19 05:35 Lymph % (Auto) 20.3 % (21.0-51.0) L 07/23/19 05:35 [place] % (Auto) 11.6 % (0.0-13.0) 07/23/19 05:35 Eos % (Auto) 6.0 % (0.9-2.9) H 07/23/19 05:35 Baso % (Auto) 0.5 % (0.2-1.0) 07/23/19 05:35 Neut # (Auto) 4.0 x10^3/uL (2.2-4.8) 07/23/19 05:35 Lymph # (Auto) 1.3 X10^3/uL (1.3-2.9) 07/23/19 05:35 [place] # (Auto) 0.7 x10^3/uL (0.3-0.8) 07/23/19 05:35 Eos # (Auto) 0.4 x10^3/uL (0.0-0.2) H 07/23/19 05:35 Baso # (Auto) 0.0 X10^3/uL (0.0-0.1) 07/23/19 05:35 Absolute Nucleated RBC 0.1 /100WBC 07/23/19 05:35 ESR 51 MM/HOUR (0-20) H 07/20/19 18:37 Sodium 144 mmol/L (136-145) 07/23/19 05:35 Corrected Sodium TNP 07/23/19 05:35 Potassium 3.7 mmol/L (3.5-5.1) 07/23/19 05:35 Chloride 111 mmol/L (98-107) H 07/23/19 05:35 Carbon Dioxide 24.5 mmol/L (21-32) 07/23/19 05:35 BUN 13 mg/dL (7-18) 07/23/19 05:35 Creatinine 0.69 mg/dL (0.55-1.02) 07/23/19 05:35 Est GFR (MDRD) Af Amer > 60 (>60) 07/23/19 05:35 Est GFR (MDRD) Non-Af > 60 (>60) 07/23/19 05:35 Glucose 91 mg/dL (65-99) 07/23/19 05:35 Lactic Acid 1.3 mmol/L (0.4-2.0) 07/20/19 18:37 Uric Acid 5.6 mg/dL (2.6-6.0) 07/20/19 18:37 Calcium 7.4 mg/dL (8.5-10.1) L 07/23/19 05:35 Corrected Calcium 8.8 mg/dL (8.5-10.1) 07/23/19 05:35 Total Bilirubin 0.30 mg/dL (0.2-1.0) 07/23/19 05:35 AST 19 Units/L (15-37) 07/23/19 05:35 ALT 13 Units/L (12-78) 07/23/19 05:35 Alkaline Phosphatase 68 Units/L (46-116) 07/23/19 05:35 C-Reactive Protein 14.10 mg/L (0-3.0) H 07/20/19 18:37 Total Protein 5.3 g/dL (6.4-8.2) L 07/23/19 05:35 Albumin 2.2 g/dL (3.4-5.0) L 07/23/19 05:35 Globulin 3.1 g/dL (2.5-4.5) 07/23/19 05:35 Albumin/Globulin Ratio 0.7 Ratio (1.1-2.1) L 07/23/19 05:35 Specimen Type Catherized urine 07/20/19 17:40 Urine Color Yellow (YELLOW) 07/20/19 17:40 Urine Appearance Cloudy (CLEAR) 07/20/19 17:40 Urine pH 6.0 (5.0 - 8.0) 07/20/19 17:40 Ur Specific [place] 1.010 (1.000-1.030) 07/20/19 17:40 Urine Protein 1+ (NEGATIVE) 07/20/19 17:40 Urine Glucose (UA) Negative (NEGATIVE) 07/20/19 17:40 Urine Ketones Negative (NEGATIVE) 07/20/19 17:40 Urine Occult Blood 2+ (NEGATIVE) 07/20/19 17:40 Urine Nitrite Positive (NEGATIVE) 07/20/19 17:40 Urine Bilirubin Negative (NEGATIVE) 07/20/19 17:40 Urine Urobilinogen Normal (NORMAL) 07/20/19 17:40 Ur Leukocyte Esterase 3+ (NEGATIVE) 07/20/19 17:40 Urine RBC 0-2 /HPF (0-3) 07/20/19 17:40 Urine WBC Tntc /HPF (0-5) A 07/20/19 17:40 Ur Squamous Epith Cells Few /HPF (NEGATIVE) 07/20/19 17:40 Urine Bacteria 4+ /HPF (NEGATIVE) 07/20/19 17:40 Urine Mucus Moderate /HPF (NEGATIVE) 07/20/19 17:40 Ur Culture Indicated? No/not indicated 07/20/19 17:40 - Plan (1) Intractable pain Status: Acute Plan: NORMAL SALINE AT 75 ML/HR, LOVENOX 40MG SC DAILY, VOLTAREN GEL TID, NEB TX, NAPROSYN 500MG PO BID, AND ZANAFLEX 2MG PO BID (2) Urinary tract infection Status: Acute Qualifiers: Urinary tract infection type: site unspecified Hematuria presence: without hematuria Qualified Code(s): N39.0 - Urinary tract infection, site not specified Plan: LEVAQUIN 500MG IV DAILY, CONTINUE TO MONITOR
== END 2019-07-23 11:35 ==
LOC: MED/SURG
PROVIDERS: ADMIT Internal Medicine; ATTEND Internal Medicine
DX: J44.9 Chronic obstructive pulmonary disease, unspecified; M79.661 Pain in right lower leg; N39.0 Urinary tract infection, site not specified; M25.561 Pain in right knee; Z79.899 Other long term (current) drug therapy; K21.9 Gastro-esophageal reflux disease without esophagitis; R79.82 Elevated C-reactive protein (CRP); I10 Essential (primary) hypertension; B96.29 Other Escherichia coli [E. coli] as the cause of diseases classified elsewhere; Q87.40 Marfan syndrome, unspecified; R70.0 Elevated erythrocyte sedimentation rate
CPT/HCPCS: 36415; 71010; 71045; 73560; 80053; 81001; 83605; 84550; 85025; 85652; 86140; 87040; 87086; 87088; 87186; 93005; 94640; 94760; 96360; 96361; 96372; 96374; A4222; C9113; G0378; J0696; J1335; J1650; J1885; J1956; J7030; J7050; J7613